=== PATIENT | female | born 1940 | race Caucasian/White ===

== ENCOUNTER → 2023-08-17 11:30 | Outpatient (REF) | payer MEDICARE, OTHER, SELFPAY ==
[2023-08-17 13:53] LABS: Blood Urea Nitrogen 17 mg/dl (7-17); Calcium 9.9 mg/dl (8.4-10.2); Carbon Dioxide 24 mmol/L (22-30); Chloride 105 mmol/L (98-107); Glucose 82 mg/dl (70-99); Potassium 4.8 mmol/L (3.5-5.1); Sodium 141 mmol/L (135-145); eGFR > 60.00
== END ==
LOC: REG 11:30
PROVIDERS: ATTENDING PHYSICIAN Internal Medicine Geriatric Medicine
DX: E87.6 Hypokalemia (principal)
CPT/HCPCS: 36415; 80048

== ENCOUNTER → 2023-10-24 12:39 | Outpatient (REF) | payer MEDICARE, OTHER, SELFPAY ==
[2023-10-24 13:16] LABS: % Basophils 1.9 % (0-2); % Eosinophils 3.5 % (0-6); % Immature Granulocytes 2.5 % (0-0.5); % Lymphocytes 8.6 % (20.5-51.1); % Monocytes 3.2 % (1.7-9.3); % Neutrophils 80.3 % (42.2-75.2); Absolute Basophils 0.3 10^3/uL (0-0.2); Absolute Eosinophils 0.5 10^3/uL (0-0.7); Absolute Immature Granulocytes 0.4 10^3/uL (0-0.05); Absolute Lymphocytes 1.3 10^3/uL (1.2-3.4); Absolute Monocytes 0.5 10^3/uL (0.1-0.6); Absolute Neutrophils 12.1 10^3/uL (1.4-6.5); Hematocrit 30.9 % (37.0-47.0); Hemoglobin 9.7 g/dL (12.0-16.0); Mean Corp Hgb Conc. 31.4 g/dL (33.0-37.0); Mean Corpuscular Hgb 27.1 pg (27.0-31.0); Mean Corpuscular Volume 86.3 fL (81.0-99.0); Mean Platelet Volume 10.8 fL (7.4-10.4); Nucleated Red Blood Cells % 0.7 %; Platelet Count 527 10^3/uL (130-400); Red Blood Cell Count 3.58 10^6/uL (4.20-5.40); Red Cell Dist. Width 28.7 % (11.5-14.5)
[2023-10-24 15:17] LABS: ALT (SGPT) 34 U/L (0-35); AST (SGOT) 36 U/L (14-36); Albumin 4.3 g/dl (3.5-5.0); Alkaline Phosphatase 43 U/L (38-126); Blood Urea Nitrogen 27 mg/dl (7-17); Calcium 9.6 mg/dl (8.4-10.2); Carbon Dioxide 24 mmol/L (22-30); Chloride 108 mmol/L (98-107); Glucose 87 mg/dl (70-99); LDH 519 U/L (120-246); Potassium 3.8 mmol/L (3.5-5.1); Sodium 141 mmol/L (135-145); Total Protein 6.9 g/dl (6.3-8.2); eGFR > 60.00
== END ==
LOC: REG 12:39
PROVIDERS: ATTENDING PHYSICIAN Internal Medicine Hematology & Oncology; FAMILY PHYSICIAN Internal Medicine Geriatric Medicine
DX: D46.1 Refractory anemia with ring sideroblasts (principal); D47.1 Chronic myeloproliferative disease
CPT/HCPCS: 36415; 80053; 83615; 85025

== ENCOUNTER 2023-11-26 11:38 | Emergency (ER) | payer MEDICARE, OTHER, SELFPAY ==
[2023-11-26 11:51] VITALS: BP 154/75
--- NOTE | 2023-11-26 12:31 | ED.MUSCINJ ---
HPI-Injury
General
Chief Complaint: Musculo-Skeletal Complaint
Source: patient
Exam Limitations: none
Time Seen by Provider: 11/26/23 12:06
Nursing documentation reviewed up to this point in time: agreed with
History of Present Illness-Injury
Is this injury a work related problem?: No
Is pt an associate of [facility]/[place]?: No
Initial Injury comments:
Patient to ED with complaint of left foot pain. Symptoms started 2 days ago. Reports initially pain was located lateral left foot. Now pain is in heel radiating to mid foot. No history of trauma. Denies fever/chills, recent illness. No prior
history of same.
Past History
Past History
ED Past Medical History: CAD, GERD, HTN, [place] and Other (Peptic ulcer disease, upper GI bleed November 2014, chronic cough)
ED Past Surgical History: Orthopedic
Social History
Tobacco: Non-smoker
Alcohol: None
Drug: None
Personal:
Living: with family
Employment: Retired
Family History
Family History: Other (Noncontributory)
Review of Systems
Review of Systems
Allergies reviewed?: Yes
All Other Systems: ROS reviewed and negative except as documented in HPI and ROS
Constitutional: Reports no symptoms
Musculoskeletal: Reports joint pain (pain to left foot)
Skin: Reports no symptoms
Neurological: Reports no symptoms
Psychiatric: Reports no symptoms
Musculoskeletal Injury Exam
Musculoskeletal Injury Exam
Left Foot:
Pain with Movement?: Moderate
Tender to palpation?: Moderate
Soft tissue swelling?: None
External deformity and angulation?: None
Joint effusion?: None
Contusion?: None
Hematoma-local bleeding into tissue?: None
Crepitus with movement?: No
Joint instability?: No
Malalignment/deformity?: No
Range of motion: Limited
Distal skin color and temperature: normal-warm & good color
Capillary Refill: normal
Normal distal neurovascular exam?: Yes
Peripheral Pulses: posterior tibial (left): 3+ and dorsalis pedis (left): 3+
Phy Exam
General Physical Exam
General Presentation: well appearing and no apparent distress
General age: appears stated age
General Skin: warm and dry
General Habitus: normal
General Mental: alert
Musculoskeletal Exam
Musculoskeletal Exam: neuro vasc intact
Skin Exam
Skin Exam: normal color, warm/dry and no rash
Psychiatric Exam
Psychiatric Exam: normal mood/affect
Injury Course
Orders/Labs/Results
Orders:
Orders
11/26/23 11:54
Foot, Left 3 View [CR Foot - Left Min 3 Views] Urgent
Comment: lateral foot and heel pain with and w/o ambulation
Reason For Exam: pain
11/26/23 12:24
Ortho Boot Left- Treatment ONCE
Short or tall?: Short
Hydrocodone 5/APAP 325 [[place] 5/325] 1 tablet PO NOW STA
*Radiology
Radiology exam reviewed: radiology read reviewed
*Pulse Oximetry
Patient hypoxic: no
*Critical Care Note
Total Time (30-74mins, 75-104mins- exclusive of procedures): Not Applicable
ED Attending Note
-
Portions of this chart may have been created with voice recognition software.� Occasional wrong word or��sound alike� substitutions may have occurred due to the inherent limitations of voice recognition software.
Discharge Plan
Departure
Patient Disposition: Home (Routine Discharge)
Date of Disposition: 11/26/23
Time of Disposition: 12:25
Patient with high blood pressure during this ER visit?: No
Condition: Good
Covid-19: Not Applicable
Discharge Problem:
Acute foot pain
Instructions: Plantar fasciitis, Muscle and Bone Pain (DC), Using Cold for Pain
Prescriptions:
New
hydrocodone-acetaminophen 5-325 mg tablet
1 tab PO Q4H PRN (Reason: Pain) Qty: 10 0RF
No Action
albuterol sulfate 1 PUFF HFA aerosol inhaler
1 puff inhalation R Q6HPRN PRN (Reason: SHORTNESS OF BREATH)
cholecalciferol (vitamin D3) 2,000 UNITS tablet
2,000 units PO DAILY
pantoprazole 40 MG tablet,delayed release (DR/EC)
40 mg PO DAILY Qty: 30 0RF
aspirin 81 MG tablet,delayed release (DR/EC)
81 mg PO DAILY Qty: 0 0RF
Rx Instructions:
resume in 3 days
budesonide-formoterol [Symbicort] 1 PUFF HFA aerosol inhaler
2 puff inhalation R BID
furosemide 20 MG tablet
20 mg PO DAILY Qty: 50 0RF
citalopram 40 mg tablet
40 mg PO DAILY
valsartan-hydrochlorothiazide 80-12.5 mg tablet
1 tab PO DAILY
potassium chloride [Klor-Con] 20 mEq packet
20 meq PO DAILY
Activity Restrictions/Additional Instructions:
Follow up with your cigarette carton sealer this week
Interventions
Interventions:
*Risk Screen - Suicide Last Done: 11/26/23 12:52
*General Assessment Last Done: 11/26/23 12:52
*Neglect/Abuse Screening Last Done: 11/26/23 12:52
ED- Fall Risk Assessment Last Done: 11/26/23 13:01
*ED COVID-19 Vaccine History Last Done: 11/26/23 13:07
*Nursing Disposition Last Done: 11/26/23 13:07
ED-Musculoskeletal Assessment Last Done: 11/26/23 13:01
Discharge Date and Time
Discharge Date/Time: 11/26/23 13:08
Print Language: ALGERIAN
[2023-11-26] MEDS: NORCO 5/325 1 TABLET PO (12:53)
== END 2023-11-26 13:08 | disposition home or self-care (01) ==
LOC: EMR 11:38
PROVIDERS: EMERGENCY PHYSICIAN Emergency Medicine; FAMILY PHYSICIAN Internal Medicine Geriatric Medicine
DX: M79.672 Pain in left foot (principal); I10 Essential (primary) hypertension; I25.10 Atherosclerotic heart disease of native coronary artery without angina pectoris; K21.9 Gastro-esophageal reflux disease without esophagitis; R05.3 Chronic cough; I25.2 Old myocardial infarction; Z87.11 Personal history of peptic ulcer disease; Z79.82 Long term (current) use of aspirin; Z88.8 Allergy status to other drugs, medicaments and biological substances
CPT/HCPCS: 99283; 29515; 73630

== ENCOUNTER → 2024-04-22 16:33 | Outpatient (REF) | payer MEDICARE, OTHER, SELFPAY | LOC: RAD 16:33 | PROVIDERS: ATTENDING PHYSICIAN Internal Medicine Geriatric Medicine | DX: M25.562 Pain in left knee (principal) | CPT/HCPCS: 73564 ==

== ENCOUNTER → 2024-09-25 14:40 | Outpatient (REF) | payer MEDICARE, OTHER, SELFPAY | LOC: RCS 14:40 | PROVIDERS: ATTENDING PHYSICIAN Internal Medicine Cardiovascular Disease; FAMILY PHYSICIAN Internal Medicine Geriatric Medicine | DX: I50.32 Chronic diastolic (congestive) heart failure (principal) | CPT/HCPCS: 93306 ==

== ENCOUNTER → 2024-12-19 15:17 | Outpatient (REF) | payer MEDICARE, OTHER, SELFPAY | LOC: RAD 15:17 | PROVIDERS: ATTENDING PHYSICIAN Nurse Practitioner Family; FAMILY PHYSICIAN Internal Medicine Geriatric Medicine | DX: R05.1 Acute cough (principal) | CPT/HCPCS: 71046 ==

== ENCOUNTER → 2025-01-13 17:10 | Outpatient (REF) | payer MEDICARE, OTHER, SELFPAY | LOC: RAD 17:10 | PROVIDERS: ATTENDING PHYSICIAN Internal Medicine Geriatric Medicine; REFERRING PHYSICIAN Specialist | DX: M54.50 Low back pain, unspecified (principal) | CPT/HCPCS: 72072; 72100 ==

== ENCOUNTER 2025-01-20 06:44 | Inpatient (IN) | payer MEDICARE, OTHER, SELFPAY ==
[2025-01-16] VITALS (9 sets, daily range): BP systolic 122–177; BP diastolic 51–88
--- NOTE | 2025-01-16 13:27 | ED.GENMED ---
History of Present Illness
General
Chief Complaint: Musculo-Skeletal Complaint
Source: patient
Exam Limitations: none
Time Seen by Provider: 01/16/25 13:00
History of Present Illness
History of Present Illness:
See MDM
Past History
Past History
ED Past Medical History: CAD, GERD, HTN, [place] and Other (Peptic ulcer disease, upper GI bleed November 2014, chronic cough)
ED Past Surgical History: Orthopedic
Social History
Tobacco: Non-smoker
Alcohol: None
Drug: None
Personal:
Living: with family
Employment: Retired
Family History
Family History: Other (Noncontributory)
Phy Exam
Physical Exam
Physical Exam:
See MDM
Course
Orders/Labs/Results
Orders:
Orders
01/16/25 13:16
Morphine Sulfate 4 mg IV NOW STA
01/16/25 13:17
Case Management Consult ONCE
Case Management Consult: Discharge Planning
Dexamethasone Sod Phosphate [Decadron] 10 mg IV NOW STA
Pt Eval And Treat Urgent
Activity Level: Out of Bed-Early Mobility
01/16/25 13:55
Complete Blood Count/With Diff Urgent
Comprehensive Metabolic Panel Urgent
Manual Differential Urgent
01/16/25 15:11
Morphine Sulfate 4 mg IV NOW STA
01/16/25 15:13
Add On- LAB Routine
Tests Added?: iron, ferritin, tibc, folate, vit b12
Abnormal Lab Results
01/16/25
13:55
RBC 2.89 L 10^6/uL
(4.20-5.40)
Hgb 7.2 L g/dL
(12.0-16.0)
Hct 23.1 L %
(37.0-47.0)
MCV 79.9 L fL
(81.0-99.0)
MCH 24.9 L pg
(27.0-31.0)
MCHC 31.2 L g/dL
(33.0-37.0)
RDW 25.5 H %
(11.5-14.5)
Segmented Neutrophils 85 H %
(42-75)
Lymphocytes (Manual) 10 L %
(20-51)
Chloride 112 H mmol/L
(98-107)
Carbon Dioxide 18 L mmol/L
(22-30)
BUN 21 H mg/dl
(7-17)
01/16/25 13:55
01/16/25 13:55
Vital Signs
Initial and Last Documented VS:
Initial Vital Signs
Temp Pulse Resp BP Pulse Ox
98.7 F 83 22 157/66 100
01/16/25 11:49 01/16/25 11:49 01/16/25 11:49 01/16/25 11:49 01/16/25 11:49
Last Documented Vital Signs
Temp Pulse Resp BP Pulse Ox
98.7 F 83 22 146/51 100
01/16/25 11:49 01/16/25 11:49 01/16/25 11:49 01/16/25 14:03 01/16/25 13:29
MDM/Problems Addressed
Differential Diagnosis Includes:
Note:
CHIEF COMPLAINT(S)
- Severe back and knee pain, secondary to arthritis, resulting in decreased mobility and difficulty managing daily activities.
HISTORY OF PRESENT ILLNESS
The patient is an 84-year-old female with a history of arthritis, presenting with significant pain in her lower back and knee. The discomfort has been exacerbated recently, limiting her mobility and ability to perform daily tasks, which has
subsequently caused shoulder pain due to reliance on a walker for the past week. The patients pain began largely while she was in [place], around mid-December, and has been progressively worsening since. She has undergone X-rays this past week,
revealing arthritic changes, and has not experienced any recent falls.
The patient has received various treatments, including a back injection on the last Monday and a gel injection for her knee administered two months ago, neither of which have provided relief. She also takes Extra Strength Tylenol and metaxalone
without significant improvement. The patients current orthopedic management plan involves a follow-up for potential further steroid injections.
ADDITIONAL HISTORY OBTAINED FROM SOURCE OTHER THAN PATIENT
Per family members, the patient is experiencing an urgency problem, affecting her ability to reach the bathroom in time.
SOCIAL DETERMINANTS AFFECTING HEALTH
The patient experiences difficulty in mobility at home, which results in challenges with daily living activities. She also has issues with timely access to bathroom facilities due to mobility constraints.
MEDICATIONS
- Extra Strength Tylenol (acetaminophen)
- Metaxalone
PHYSICAL EXAM
General: Alert, no acute distress.
Skin: Warm, dry.
Head: Normocephalic, atraumatic
Neck: Appears supple, trachea midline.
Eyes, Ears, Nose, Mouth, and Throat: Oral mucosa moist.
Cardiovascular: No signs of cyanosis
Respiratory: Respirations are non-labored.
Abdomen: Non-distended and nontender
Back: Mild left para lumbar muscular tenderness
Musculoskeletal: No deformities. No knee edema noted
Neurological: No focal neurological deficit observed.
Psychiatric: Cooperative, appropriate mood and affect.
PLAN
1. Administer a small dose of morphine for acute pain relief.
2. Give an IV dose of dexamethasone (Decadron) to address inflammation.
3. Blood work to assess for any underlying issues potentially contributing to pain.
4. Case management and physical therapy consultation to evaluate mobility aids and support at home.
5. Explore short-term rehabilitation options for improvement of mobility and pain management.
6. Consider hospital admission for complex management of pain if outpatient measures are insufficient.
7. Monitor for efficacy and side effects of pain management interventions, adjusting as necessary.
DIFFERENTIAL DIAGNOSIS
The Differential Diagnosis includes, in no particular order and is not limited to:
1. Arthritic back pain
2. Osteoarthritis of the knee
3. Lumbar spinal stenosis
4. Herniated intervertebral disc
5. Possible discitis
6. Muscle strain or spasm
7. Vertebral compression fracture
8. Hip osteoarthritis referred to the knee
9. Degenerative joint disease of the shoulder
10. Myofascial pain syndrome
SUMMARY OF ENCOUNTER
The 84-year-old female patient with a known history of arthritis presented to the emergency department with severe back and knee pain leading to decreased mobility. Upon evaluation, the patients pain was found to be significant enough that she was
unable to fully participate in physical therapy. Pain control was provided via medication, which offered some relief. Considering the persistence of pain and the patients inability to engage with physical therapy, the decision was made to admit the
patient for further pain management and evaluation. A consultation with a hospitalist was arranged to consider further interventions, possibly involving orthopedics, and to deliberate the need for MRI.
DISPOSITION
Admit for pain control and further evaluation.
ASSESSMENT
The patients severe back and knee pain, unmanageable through outpatient measures, suggests exacerbation of underlying arthritis, potentially complicated by other degenerative changes. Need for possible advanced imaging and specialist involvement.
EMERGENCY TREATMENTS ADMINISTERED
Pain medication was administered leading to some improvement in symptoms.
MANAGEMENT OF THE PATIENTS CARE WAS DISCUSSED WITH
A discussion was carried out with a hospitalist for admission and further management decisions, including the potential involvement of orthopedics and obtaining an MRI if required.
PLAN
1. Admit the patient for pain control and detailed evaluation.
2. Continue administering appropriate analgesics to manage acute pain.
3. Coordinate with a hospitalist to consider the involvement of orthopedics and the necessity of an MRI.
4. Re-evaluate patients condition and suitability for rehabilitation after adequate pain management.
DIAGNOSIS
1. Osteoarthritis, multiple sites (ICD-10: M15.9)
2. Chronic pain syndrome (ICD-10: G89.4)
*Pulse Oximetry
SaO2: 100
Oxygen Mode of Delivery: Room air
Patient hypoxic: no
*Critical Care Note
Total Time (30-74mins, 75-104mins- exclusive of procedures): Not Applicable
ED Attending Note
-
Portions of this chart may have been created with voice recognition software.� Occasional wrong word or��sound alike� substitutions may have occurred due to the inherent limitations of voice recognition software.
Discharge Plan
Departure
Patient Disposition: Admit
Date of Disposition: 01/16/25
Time of Disposition: 15:15
Presentation/result/management discussed w/ accepting MD/DO: Hospitalist
Discharge Problem:
Back pain
Prescriptions:
No Action
albuterol sulfate 1 PUFF HFA aerosol inhaler
1 puff inhalation R Q6HPRN PRN (Reason: SHORTNESS OF BREATH)
cholecalciferol (vitamin D3) 2,000 UNITS tablet
2,000 units PO DAILY
pantoprazole 40 MG tablet,delayed release (DR/EC)
40 mg PO DAILY Qty: 30 0RF
aspirin 81 MG tablet,delayed release (DR/EC)
81 mg PO DAILY Qty: 0 0RF
Rx Instructions:
resume in 3 days
budesonide-formoterol [Symbicort] 1 PUFF HFA aerosol inhaler
2 puff inhalation R BID
furosemide 20 MG tablet
20 mg PO DAILY Qty: 50 0RF
citalopram 40 mg tablet
40 mg PO DAILY
valsartan-hydrochlorothiazide 80-12.5 mg tablet
1 tab PO DAILY
potassium chloride [Klor-Con] 20 mEq packet
20 meq PO DAILY
hydrocodone-acetaminophen 5-325 mg tablet
1 tab PO Q4H PRN (Reason: Pain) Qty: 10 0RF
Referrals:
Anton Barton MD [Family Provider, Internal Medicine]
Interventions
Interventions:
*Risk Screen - Suicide Last Done: 01/16/25 11:52
*General Assessment Last Done: 01/16/25 14:20
*Neglect/Abuse Screening Last Done: 01/16/25 11:52
*ED- Fall Risk Assessment Last Done: 01/16/25 14:20
*ED COVID-19 Vaccine History Last Done: 01/16/25 14:20
ED-Musculoskeletal Assessment Last Done: 01/16/25 14:20
Discharge Date and Time
Print Language: MAORI
[2025-01-16] MEDS: MORPHINE SULFATE 4 MG IV ×2 (13:57→15:42)
[2025-01-16] MEDS: DECADRON 10 MG IV (13:57)
--- NOTE | 2025-01-16 14:08 | CM ---
CM reviewed chart and met with pt and bedside in ED. They live in a 1 story home, 3 RADHA, 1 step down to family room.
Independent in ADLs, personal care and ambulation at baseline, has cane and RW, has been using walker this week.
Hx [facility], no hx SNF.
PCP:Anton Barton
Pharmacy: [facility]
Pt states PT came to see her but she was not able to participate due to pain. Morphine is ordered.
CM will continue to follow for all discharge planning needs.
[2025-01-16 14:23] LABS: Hematocrit 23.1 % (37.0-47.0); Hemoglobin 7.2 g/dL (12.0-16.0); Mean Corp Hgb Conc. 31.2 g/dL (33.0-37.0); Mean Corpuscular Volume 79.9 fL (81.0-99.0); Platelet Count 261 10^3/uL (130-400); Red Cell Dist. Width 25.5 % (11.5-14.5)
[2025-01-16 14:28] LABS: ALT (SGPT) 11 U/L (0-35); AST (SGOT) 21 U/L (14-36); Albumin 3.7 g/dl (3.5-5.0); Alkaline Phosphatase 51 U/L (38-126); Blood Urea Nitrogen 21 mg/dl (7-17); Calcium 9.3 mg/dl (8.4-10.2); Carbon Dioxide 18 mmol/L (22-30); Chloride 112 mmol/L (98-107); Glucose 97 mg/dl (70-99); Potassium 3.5 mmol/L (3.5-5.1); Sodium 139 mmol/L (135-145); Total Protein 6.3 g/dl (6.3-8.2); eGFR > 60.00
[2025-01-16 15:02] LABS: Absolute Neutrophils -Man Diff 5.9 10^3/uL (1.4-6.5)
[2025-01-16 15:03] LABS: Anisocytosis 2+; Hypochromasia 2+; Microcytosis 2+; Normal RBC Morphology No; Platelets Checked Yes
[2025-01-16 15:04] LABS: Acanthocytes 1+; Ovalocytes 2+; Spherocytes 1+; Tear Drop Red Blood Cells 1+
[2025-01-16 15:05] LABS: Total Cells Counted 100
--- NOTE | 2025-01-16 15:15 | HPS.HSE ---
Family Physician
-
Family Physician: Anton Barton
Chief Complaint
-
Left Hip Pain
History of Present Illness
Patient is an 84 y/o female past medical history of MDS, CAD, CHF, HTN, and Osteoarthritis who presents with difficulty ambulating due to worsening arthritis pain. She reports over the past year she has been experiencing worsening back pain, left
knee pain, and now left hip pain. Patient reports she previously received a cortisone injection which helped but more recently she received a gel injection which did not offer any relief any notes it actually worsened her pain. She previously was
using a cane, but now has to use a walker. She reports since using the walker she has developed right shoulder pain. Patient is also now complaining about left hip pain for which she did receive a hip injection. She denies any recent falls. She
has tried Tylenol 1000mg, Tramadol (unknown dosage) and [place] Patch without improvement in her symptoms.
Medical History
Past Medical History
Past Medical History: Reports Other
Additional Past Medical History:
Myelodysplastic Syndrome
Coronary Artery Disease
Chronic HFpEF
Essential Hypertension
Dyslipidemia
Asthma
Obstructive Sleep Apnea
Depression
Nephrolithiasis
GI Bleed / PUD
Degenerative Disc Disease / Spinal Stenosis
Past Surgical History: Reports Other
Additional Past Surgical History:
Ureteral Stent with Lithotripsy
Left Hand/Wrist Surgery
Bilateral Rotator Cuff
Appendectomy
Social History
Tobacco: Non-smoker
Alcohol: Occasional
Family History
Family History: Not pertinent
Allergies / Home Medications
Allergies reflects when Allergies were last updated in [employer].
Home Medications with original date entered in [employer]
Allergy/Medication List:
Allergies
Allergy/AdvReac Type Severity Reaction Status Date / Time
bandaids Allergy Itching Uncoded 01/16/25 11:51
Home Medications
albuterol sulfate 90 mcg/actuation aerosol inhaler 1 puff inhalation R Q6HPRN PRN SHORTNESS OF BREATH 04/17/15
cholecalciferol (vitamin D3) 50 mcg (2,000 unit) tablet 2,000 units PO DAILY Supplement 04/17/15
aspirin 81 mg tablet,delayed release 81 mg PO DAILY ##0 04/22/15
pantoprazole 40 mg tablet,delayed release 40 mg PO DAILY ##30 04/22/15
valsartan 80 mg-hydrochlorothiazide 12.5 mg tablet 1 tab PO DAILY 07/12/22
acetaminophen 325 mg tablet (Tylenol) 650 mg PO Q6HPRN PRN mild pain 01/16/25
cholestyramine (with sugar) 4 gram powder for susp in a packet 1 ea PO DAILY@1300 01/16/25
citalopram 20 mg tablet (Celexa) 20 mg PO DAILY 01/16/25
fluticasone furoate 100 mcg-vilanterol 25 mcg/dose inhalation powder (Breo Ellipta) 2 inh inhalation R DAILY 01/16/25
vitamin B complex 1 tab PO DAILY 01/16/25
Review of Systems
-
A 12 point ROS was completed and negative except as noted: Yes
Constitutional: Denies Fever or Chills
Respiratory: Denies Cough or Trouble Breathing
Cardiac: Denies Chest Pain or Palpitations
Musculoskeletal: Reports See HPI
Physical Exam
Vital Signs
Vital Signs
Temp Pulse Resp BP Pulse Ox
98.7 F 83 22 146/51 100
01/16/25 11:49 01/16/25 11:49 01/16/25 11:49 01/16/25 14:03 01/16/25 13:29
Physical Exam
General: Comfortable and Conversant
HEENT: Anicteric and Moist mucous membranes
Respiratory: Clear and Non Labored Respirations
Cardiac: S1/S2 and Regular Rhythm
GI: Soft and Non Tender
Rectal: Deferred by Provider
Musculoskeletal: No Clubbing, No Cyanosis and Other (Mild tenderness to palpation Left SI Joint)
Skin: Warm and Dry
Neuro: Awake, Alert, Oriented and Nonfocal/grossly intact
Psych: Calm
Laboratory Results
-
01/16/25 13:55
01/16/25 13:55
Laboratory Results
Total Bilirubin 1.1 mg/dl (0.2-1.3) 01/16/25 13:55
AST 21 U/L (14-36) 01/16/25 13:55
ALT 11 U/L (0-35) 01/16/25 13:55
Alkaline Phosphatase 51 U/L (38-126) 01/16/25 13:55
Data Reviewed
-
Diagnostic Radiology: Report Reviewed by me
Lab Data: Labs Reviewed by me
Impression/Plan
-
Ambulatory Dysfunction secondary to worsening osteoarthritis pain
-Check Left/Pelvis X-Ray
-Add Lidocaine patch to Left SI joint
-Continue Tylenol 1000mg TID
-Add Oxycodone for moderate pain, and Dilaudid for severe pain
-Avoid NSAIDs due to history of GI Bleed
-Consult PT/OT
Myelodysplastic Syndrome
-Hgb seems slightly lower than baseline - Check iron studies, vitamin b12 and folic acid
-Heme-test stools
-Recheck Hgb in AM
Coronary Artery Disease
-Continue aspirin
Essential Hypertension
-Continue valsartan / HCTZ
Asthma
-Continue Breo
Depression
-Continue Celexa
Hx GI Bleed / PUD
-Continue Protonix
DVT proph: SCDs
Code Status: Full Code
[2025-01-16 15:33] LABS: Iron 41 ug/dl (37-170)
[2025-01-16 15:42] LABS: Total Iron Binding Capacity 228 ug/dl (265-497)
--- NOTE | 2025-01-16 16:11 | W.PN.UPDATE ---
Update Note
Progress Note Update
This note serves as an addendum to the H&P by piping design specialist GIOVANA�
Ginette DIETERICK
HPI�
83F from home , HX painful OA/DJD of Lt Knee, Lt SI joint pain and LBP . HX s/p Lt Hip IAS or synvisc , asscociated suacute gait dysfunction requiriung [place] at home, seen at ER for decompensatd ADLs. At ER, too uncomfortable to move so she
wouldn't even be able to participate in PT. So unable to expedite placement till improved pain control
HX CAD, GERD, HTN, [place] and Other (Peptic ulcer disease, upper GI bleed November 2014, chronic cough
Relevant VS:
PE
Gen: Not toxic
HEENT: anicteric
Neck: supple
Lungs: CTA
Cor: RRR S1 S2
Abdomen:�Benign
FIELD TRAINING MANAGER: AAO3 , NFND
MS: no edema , Limited FROM in [place]ar large joints
Psych: Nl mood and affect
Relevant Data
01/16/25
13:55
RBC 2.89 L
Hgb 7.2 L
Hct 23.1 L
MCV 79.9 L
MCH 24.9 L
MCHC 31.2 L
RDW 25.5 H
Segmented Neutrophils 85 H
Lymphocytes (Manual) 10 L
Chloride 112 H
Carbon Dioxide 18 L
BUN 21 H
TIBC 228 L
% Saturation 17 L
Ferritin 687.0 H
01/13/25 Thx and Lx spine
1. No acute osseous abnormalities appreciated.
2. Mild degenerative change of the thoracic spine.
3. Mild multilevel degenerative changes of the lumbar spine without evidence for acute fracture.
ASSESSMENT & PLAN
Pending Rx reconciliation
Inadequate pain control of progressive painful OA/DJD of Lt Knee, Lt SI joint and chr LBP
Associated subacute gait dysfunction requiring Walker
Compromised ADLs.
- Unable to evaluate by PT for placement due to inadequate pain control
- Pain control with Local Lidoderm plus escalating systemic pain control ladder PRN
- Hold narcotics if any AMS
- BW regime as needed
- check ESR
Chr anemia - baseline Hgb is around 7s
HX MDS
- hemodynamically stable
- FU CBC
HX chr diarrhea
Benign HTN
- c/w OP Meds - Pending Rx reconciliation
HX depression
DVT Px: SCD
Full code
OBS MS
[2025-01-16 16:12] LABS: Ferritin 687.0 ng/ml (11.1-264.0)
[2025-01-16 16:43] LABS: Folate > 20.0 ng/ml (2.76-20); Vitamin B12 > 1000 pg/ml (239-931)
[2025-01-16] MEDS: LIDOCAINE 4% PATCH 1 PATCH TOPICAL (16:54)
[2025-01-16] MEDS: REMOVE LIDOCAINE PATCH 1 PATCH REMOVE (20:59)
[2025-01-16] MEDS: TYLENOL 1000 MG PO (21:29)
[2025-01-17 07:58] LABS: Hematocrit 25.4 % (37.0-47.0); Hemoglobin 7.8 g/dL (12.0-16.0); Mean Corp Hgb Conc. 30.7 g/dL (33.0-37.0); Mean Corpuscular Volume 81.9 fL (81.0-99.0); Red Cell Dist. Width 25.7 % (11.5-14.5)
[2025-01-17] MEDS: SYMBICORT 80/4.5 MCG INHALER 2 PUFF INH ×2 (08:06→20:14)
[2025-01-17 08:30] LABS: Platelet Count 308 10^3/uL (130-400)
[2025-01-17] MEDS: LIDOCAINE 4% PATCH 1 PATCH TOPICAL (08:30)
[2025-01-17] MEDS: PROTONIX 40 MG PO (08:31)
[2025-01-17] MEDS: ORETIC 12.5 MG PO (08:31)
[2025-01-17] MEDS: ASPIR LOW (ENTERIC COATED) 81 MG PO (08:31)
[2025-01-17] MEDS: DIOVAN 80 MG PO (08:31)
[2025-01-17] MEDS: CELEXA 20 MG PO (08:31)
[2025-01-17] MEDS: TYLENOL 1000 MG PO ×3 (08:32→21:54)
[2025-01-17 08:36] VITALS: BP 155/61
--- NOTE | 2025-01-17 10:39 | W.PN.HOSP.TC ---
Today's Communication/Plan
-
Await hip x-ray
Continue with PT OT
Pain control
Assessment / Plan
Assessment / Plan
General: Comfortable and Conversant
HEENT: Anicteric and Moist mucous membranes
Respiratory: Clear and Non Labored Respirations
Cardiac: S1/S2 and Regular Rhythm
GI: Soft and Non Tender
Rectal: Deferred by Provider
Musculoskeletal: No Clubbing, No Cyanosis and Other (Mild tenderness to palpation Left SI Joint)
Skin: Warm and Dry
Neuro: Awake, Alert, Oriented and Nonfocal/grossly intact
Psych: Calm
Ambulatory Dysfunction secondary to worsening osteoarthritis pain
-Check Left/Pelvis X-Ray
-Add Lidocaine patch to Left SI joint
-Continue Tylenol 1000mg TID
-Add Oxycodone for moderate pain, and Dilaudid for severe pain
-Avoid NSAIDs due to history of GI Bleed
-Consult PT/OT
Myelodysplastic Syndrome
-trend hgb. transfuse <7.
-Heme-test stools
Coronary Artery Disease
-Continue aspirin
Essential Hypertension
-Continue valsartan / HCTZ
Asthma
-Continue Breo
Depression
-Continue Celexa
Hx GI Bleed / PUD
-Continue Protonix
DVT proph: SCDs
Code Status: Full Code
Anticipated Discharge: > 48 hours
Subjective/Interval History
-
Date of Service: January 17, 2025
States of left hip pain with movement
Objective Data
-
Labs:
Laboratory Results
01/17/25
07:09
WBC 6.8
Hgb 7.8 L
Hct 25.4 L
Plt Count 308
Vital Signs:
Vital Signs
Temp Pulse Resp BP Pulse Ox
97.6 F 87 18 155/61 96
01/17/25 08:36 01/17/25 08:36 01/17/25 08:36 01/17/25 08:36 01/17/25 08:36
I&O
01/16/25 01/17/25 01/18/25
06:59 06:59 06:59
Intake Total 240 / 240
Balance 240 / 240
[2025-01-17] MEDS: ROXICODONE 5 MG PO (11:26)
[2025-01-17] MEDS: IMODIUM 2 MG PO (11:30)
[2025-01-17 12:30] VITALS: BP 139/61; PULSE 79; O2SAT 99
[2025-01-17 12:31] VITALS: BP 139/61; PULSE 79; O2SAT 99
[2025-01-17] MEDS: QUESTRAN 4 GRAM PO (12:50)
[2025-01-17 15:44] VITALS: BP 153/65
--- NOTE | 2025-01-17 17:00 | CM ---
Patient seen at bedside
[facility] form explained-declined to sign wants to review with -given copy.
PT rec SNF
discussed SNF & private pay/OBS status
tt [place] regarding MSSP waiver-does not qualify for waiver
PLAN: tbd, follow hospital progress, CM to follow up
[2025-01-17] MEDS: REMOVE LIDOCAINE PATCH 1 PATCH REMOVE (19:58)
[2025-01-17 23:23] VITALS: BP 138/63
[2025-01-18] MEDS: MELATONIN 3 MG PO ×2 (00:23→21:56)
[2025-01-18] MEDS: DILAUDID 0.25 MG IV (06:37)
[2025-01-18] MEDS: SYMBICORT 80/4.5 MCG INHALER 2 PUFF INH ×2 (07:15→17:26)
[2025-01-18 07:33] VITALS: BP 145/60
[2025-01-18] MEDS: ASPIR LOW (ENTERIC COATED) 81 MG PO (08:07)
[2025-01-18] MEDS: TYLENOL 1000 MG PO ×3 (08:07→21:56)
[2025-01-18] MEDS: PROTONIX 40 MG PO (08:07)
[2025-01-18] MEDS: LIDOCAINE 4% PATCH 1 PATCH TOPICAL (08:08)
[2025-01-18] MEDS: ORETIC 12.5 MG PO (08:10)
[2025-01-18] MEDS: CELEXA 20 MG PO (08:10)
[2025-01-18] MEDS: DIOVAN 80 MG PO (08:10)
--- NOTE | 2025-01-18 10:39 | W.PN.HOSP.TC ---
Today's Communication/Plan
-
pain control
start steroids
oob/pt
Assessment / Plan
Assessment / Plan
General: Comfortable and Conversant
HEENT: Anicteric and Moist mucous membranes
Respiratory: Clear and Non Labored Respirations
Cardiac: S1/S2 and Regular Rhythm
GI: Soft and Non Tender
Rectal: Deferred by Provider
Musculoskeletal: No edema
Skin: Warm and Dry
Neuro: Awake, Alert, Oriented and Nonfocal/grossly intact
Psych: Calm
Ambulatory Dysfunction secondary to worsening osteoarthritis pain
-Left/Pelvis S-Tlv-Rxeukd proliferative arthropathy of the sacroiliac joints. Findings have progressed compared with prior studies. The findings could be related to advanced osteoarthritis, ankylosing spondylitis, or inflammatory bowel disease
-Add Lidocaine patch to Left SI joint
-Continue Tylenol 1000mg TID
-Add Oxycodone for moderate pain, and Dilaudid for severe pain
-Avoid NSAIDs due to history of GI Bleed
-Consult PT/OT- recs SNF
-Trial of systemic steroids.
Myelodysplastic Syndrome
-trend hgb. transfuse <7.
-check labs
Coronary Artery Disease
-Continue aspirin
Essential Hypertension
-Continue valsartan / HCTZ
Asthma
-Continue Breo
Depression
-Continue Celexa
Hx GI Bleed / PUD
-Continue Protonix
DVT proph: lovenox
Code Status: Full Code
PT recs SNF. CM aware.
Anticipated Discharge: 24 - 48 hours
Subjective/Interval History
-
Date of Service: January 18, 2025
states of unable to bear weight on LLE
Objective Data
-
Vital Signs:
Vital Signs
Temp Pulse Resp BP Pulse Ox
97.3 F 73 14 145/60 97
01/18/25 07:33 01/18/25 07:33 01/18/25 07:33 01/18/25 07:33 01/18/25 07:33
I&O
01/17/25 01/18/25 01/19/25
06:59 06:59 06:59
Intake Total 240 / 240 240 / 240
Balance 240 / 240 240 / 240
[2025-01-18] MEDS: DELTASONE 40 MG PO (11:10)
[2025-01-18] MEDS: IMODIUM 2 MG PO (11:14)
[2025-01-18] MEDS: QUESTRAN 4 GRAM PO (12:38)
--- NOTE | 2025-01-18 13:20 | CM ---
CM met with pt at bedside, however she wants her to be there for meeting regarding SNF. Per RN, pt's fell at home today. CM to f/u again tomorrow regarding SNF transfer.
[2025-01-18 15:16] VITALS: BP 149/68
--- NOTE | 2025-01-18 16:21 | CM ---
MIKE met with Bernardo and her to discuss Medicare coverage for SNF, as well as OBS status, and interested in an update regarding her medical status.
TT to Dr. Munoz to make him aware.
MIKE will continue to follow.
[2025-01-18] MEDS: LOVENOX 40 MG SC (18:18)
[2025-01-18] MEDS: REMOVE LIDOCAINE PATCH 1 PATCH REMOVE (20:00)
[2025-01-18 23:00] VITALS: BP 141/61
[2025-01-19] MEDS: DILAUDID 0.25 MG IV (00:46)
[2025-01-19] MEDS: SYMBICORT 80/4.5 MCG INHALER 2 PUFF INH ×2 (07:10→17:52)
[2025-01-19 07:50] LABS: Blood Urea Nitrogen 23 mg/dl (7-17); Calcium 9.1 mg/dl (8.4-10.2); Carbon Dioxide 19 mmol/L (22-30); Chloride 110 mmol/L (98-107); Estimated Creatinine Clearance 54 ml/min; Glucose 99 mg/dl (70-99); Potassium 3.7 mmol/L (3.5-5.1); Sodium 138 mmol/L (135-145); eGFR > 60.00
[2025-01-19 07:55] VITALS: BP 144/86
[2025-01-19] MEDS: TYLENOL 1000 MG PO ×3 (08:27→22:08)
[2025-01-19] MEDS: ASPIR LOW (ENTERIC COATED) 81 MG PO (08:28)
[2025-01-19] MEDS: DELTASONE 40 MG PO (08:28)
[2025-01-19] MEDS: CELEXA 20 MG PO (08:28)
[2025-01-19] MEDS: ORETIC 12.5 MG PO (08:28)
[2025-01-19] MEDS: DIOVAN 80 MG PO (08:28)
[2025-01-19] MEDS: PROTONIX 40 MG PO (08:28)
[2025-01-19] MEDS: LIDOCAINE 4% PATCH 1 PATCH TOPICAL (08:29)
[2025-01-19] MEDS: ROXICODONE 5 MG PO ×3 (08:43→22:12)
--- NOTE | 2025-01-19 10:03 | W.PN.HOSP.TC ---
Today's Communication/Plan
-
Check CT pelvis and CT left lower extremity
Trend hemoglobin
Out of bed/PT
Pain control
Assessment / Plan
Assessment / Plan
General: Comfortable and Conversant
HEENT: Anicteric and Moist mucous membranes
Respiratory: Clear and Non Labored Respirations
Cardiac: S1/S2 and Regular Rhythm
GI: Soft and Non Tender
Rectal: Deferred by Provider
Musculoskeletal: No edema ,(tenderness to palpation Left SI Joint)
Skin: Warm and Dry
Neuro: Awake, Alert, Oriented and Nonfocal/grossly intact
Psych: Calm
Ambulatory Dysfunction secondary to worsening osteoarthritis pain
-Left/Pelvis F-Czx-Rcfbww proliferative arthropathy of the sacroiliac joints. Findings have progressed compared with prior studies. The findings could be related to advanced osteoarthritis, ankylosing spondylitis, or inflammatory bowel disease
-Add Lidocaine patch to Left SI joint
-Continue Tylenol 1000mg TID
-Add Oxycodone for moderate pain, and Dilaudid for severe pain
-Avoid NSAIDs due to history of GI Bleed
-Consult PT/OT- recs SNF
-Trial of systemic steroids.
-Remains with persistent pain. Check CT pelvis and CT of the left lower extremity to rule out occult fractures
Myelodysplastic Syndrome
-trend hgb. transfuse <7.
- Hemoglobin up trended to 8.5. Patient gets infusion at [facility] and she is due for further infusion next week for anemia.
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
Coronary Artery Disease
-Continue aspirin
Essential Hypertension
-Continue valsartan / HCTZ
Asthma
-Continue Breo
Depression
-Continue Celexa
Hx GI Bleed / PUD
-Continue Protonix
DVT proph: lovenox
Code Status: Full Code
PT recs SNF.
Updated patient's spouse over the phone in details.
Anticipated Discharge: > 48 hours
Subjective/Interval History
-
Date of Service: January 19, 2025
Remains with left side hip pain
Was OOB yesterday in chair
but pain persist
Objective Data
-
Labs:
Laboratory Results
01/19/25 01/19/25
06:18 09:37
WBC Cancelled Pending
Hgb Cancelled Pending
Hct Cancelled Pending
Plt Count Cancelled Pending
Sodium 138
Potassium 3.7
Chloride 110 H
Carbon Dioxide 19 L
BUN 23 H
Creatinine 0.6
Glucose 99
Calcium 9.1
Vital Signs:
Vital Signs
Temp Pulse Resp BP Pulse Ox
98.0 F 87 16 144/86 97
01/19/25 07:55 01/19/25 07:55 01/19/25 07:55 01/19/25 07:55 01/19/25 07:55
I&O
01/18/25 01/19/25 01/20/25
06:59 06:59 06:59
Intake Total 240 / 240 1200 / 1200
Balance 240 / 240 1200 / 1200
Data Reviewed
-
Total Time Spent with Patient (in minutes): 55
[2025-01-19 11:36] LABS: Hematocrit 27.3 % (37.0-47.0); Hemoglobin 8.5 g/dL (12.0-16.0); Mean Corp Hgb Conc. 31.1 g/dL (33.0-37.0); Mean Corpuscular Volume 81.0 fL (81.0-99.0); Nucleated Red Blood Cells % 0.8 %; Platelet Count 387 10^3/uL (130-400); Red Cell Dist. Width 25.4 % (11.5-14.5)
[2025-01-19] MEDS: QUESTRAN 4 GRAM PO (12:11)
[2025-01-19 15:00] VITALS: BP 172/71
--- NOTE | 2025-01-19 15:05 | CM ---
Pt going for CT this afternoon - LLE and Pelvis. Bernardo was told by MD that the OBS status 'will be taken care of tomorrow'.
Please check if eligible for [employer] Waiver.
[2025-01-19] MEDS: LOVENOX 40 MG SC (17:41)
[2025-01-19] MEDS: REMOVE LIDOCAINE PATCH 1 PATCH REMOVE (22:08)
[2025-01-19 23:51] VITALS: BP 163/74
[2025-01-20 07:37] VITALS: BP 133/86
[2025-01-20 07:46] LABS: Hematocrit 28.0 % (37.0-47.0); Hemoglobin 8.6 g/dL (12.0-16.0); Mean Corp Hgb Conc. 30.7 g/dL (33.0-37.0); Mean Corpuscular Volume 80.5 fL (81.0-99.0); Platelet Count 322 10^3/uL (130-400); Red Cell Dist. Width 25.5 % (11.5-14.5)
[2025-01-20 07:48] LABS: Blood Urea Nitrogen 25 mg/dl (7-17); Calcium 9.0 mg/dl (8.4-10.2); Carbon Dioxide 25 mmol/L (22-30); Chloride 106 mmol/L (98-107); Estimated Creatinine Clearance 46 ml/min; Glucose 84 mg/dl (70-99); Potassium 4.1 mmol/L (3.5-5.1); Sodium 139 mmol/L (135-145); eGFR > 60.00
[2025-01-20] MEDS: SYMBICORT 80/4.5 MCG INHALER 2 PUFF INH ×2 (07:57→18:00)
[2025-01-20] MEDS: DIOVAN 80 MG PO (08:17)
[2025-01-20] MEDS: ASPIR LOW (ENTERIC COATED) 81 MG PO (08:17)
[2025-01-20] MEDS: TYLENOL 1000 MG PO ×3 (08:17→21:21)
[2025-01-20] MEDS: ORETIC 12.5 MG PO (08:18)
[2025-01-20] MEDS: LIDOCAINE 4% PATCH 1 PATCH TOPICAL (08:18)
[2025-01-20] MEDS: CELEXA 20 MG PO (08:18)
[2025-01-20] MEDS: PROTONIX 40 MG PO (08:21)
[2025-01-20 09:47] LABS: Nucleated Red Blood Cells % 0.9 %
--- NOTE | 2025-01-20 10:18 | W.PN.HOSP.TC ---
Addendum entered and electronically signed by Cyndi Greene MD 01/20/25 15:36:
Addendum
Patient is having significant pain, unable to do physical therapy or ambulate. She is unable to tolerate high doses of narcotic due to side effects and the way they are making her feel. Will consult orthopedic. Discussed with orthopedic doctor
on-call, reviewed imaging study, patient might benefit from local joint steroid injection. Will consult Ortho to evaluate.
End
Original Note:
Today's Communication/Plan
-
Pt reports pain still significant
c/w Tylenol ATC
c/w Oxy and PRN IV Dilaudid.
Assessment / Plan
Assessment / Plan
Physical exam:
General: Comfortable and Conversant
HEENT: Anicteric and Moist mucous membranes
Respiratory: Clear and Non Labored Respirations
Cardiac: S1/S2 and Regular Rhythm
GI: Soft and Non Tender
Rectal: No bleeding
Musculoskeletal: No edema ,(tenderness to palpation Left SI Joint)
Skin: Warm and Dry
Neuro: Awake, Alert, Oriented and Nonfocal/grossly intact
Psych: Calm
Ambulatory Dysfunction secondary to worsening osteoarthritis pain
-Left/Pelvis F-Bdl-Mxxask proliferative arthropathy of the sacroiliac joints. Findings have progressed compared with prior studies. The findings could be related to advanced osteoarthritis, ankylosing spondylitis, or inflammatory bowel disease
-Add Lidocaine patch to Left SI joint
-Continue Tylenol 1000mg TID
-Add Oxycodone for moderate pain, and Dilaudid for severe pain
-Avoid NSAIDs due to history of GI Bleed
-Consult PT/OT- recs SNF
-Trial of systemic steroids and taper.
-Remains with persistent pain, will do . Check CT pelvis and CT of the left lower extremity to rule out occult fractures
Myelodysplastic Syndrome
-trend hgb. transfuse <7.
- Hemoglobin up trended to 8.5. Patient gets infusion at [facility] and she is due for further infusion next week for anemia.
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
Coronary Artery Disease
-Continue aspirin
Essential Hypertension
-Continue valsartan / HCTZ
Asthma
-Continue Breo
Depression
-Continue Celexa
Hx GI Bleed / PUD
-Continue Protonix
DVT proph: lovenox
Code Status: Full Code
PT recs SNF.
Total time spent to see the patient, examine the patient, review data and lab result, discuss treatment plan with patient, nursing staff around 55 minutes
Anticipated Discharge: 24 - 48 hours
Subjective/Interval History
-
Date of Service: January 20, 2025
Pain is better controlled
No chest pain
No sob
Objective Data
-
Labs:
Laboratory Results
01/20/25
06:13
WBC 8.1
Hgb 8.6 L
Hct 28.0 L
Plt Count 322
Sodium 139
Potassium 4.1
Chloride 106
Carbon Dioxide 25
BUN 25 H
Creatinine 0.7
Glucose 84
Calcium 9.0
Vital Signs:
Vital Signs
Temp Pulse Resp BP Pulse Ox
97.8 F 77 18 133/86 96
01/20/25 07:37 01/20/25 07:59 01/20/25 07:59 01/20/25 07:37 01/20/25 07:59
I&O
01/19/25 01/20/25 01/21/25
06:59 06:59 06:59
Intake Total 1200 / 1200 600 / 600
Balance 1200 / 1200 600 / 600
[2025-01-20 12:35] VITALS: BP 147/65; O2SAT 98
--- NOTE | 2025-01-20 12:59 | CM ---
Met with patient and her
LOC change to inpatient - IMM explained & signed. In chart
PT rec SNF
discussed options with
prefers [facility]
Referrals entered in careport
PLAN: SNF, pending acceptance/bed availability
[2025-01-20] MEDS: QUESTRAN 4 GRAM PO (13:05)
[2025-01-20 15:30] VITALS: BP 160/65
[2025-01-20] MEDS: IMODIUM 2 MG PO (16:16)
[2025-01-20] MEDS: LOVENOX 40 MG SC (17:07)
[2025-01-20] MEDS: REMOVE LIDOCAINE PATCH 1 PATCH REMOVE (20:13)
[2025-01-20] MEDS: ROXICODONE 5 MG PO (21:24)
[2025-01-20 23:00] VITALS: BP 165/98
[2025-01-21] MEDS: SYMBICORT 80/4.5 MCG INHALER 2 PUFF INH ×2 (07:26→17:21)
[2025-01-21] MEDS: ASPIR LOW (ENTERIC COATED) 81 MG PO (07:31)
[2025-01-21] MEDS: CELEXA 20 MG PO (07:31)
[2025-01-21] MEDS: ORETIC 12.5 MG PO (07:31)
[2025-01-21] MEDS: DIOVAN 80 MG PO (07:31)
[2025-01-21] MEDS: PROTONIX 40 MG PO (07:32)
[2025-01-21] MEDS: LIDOCAINE 4% PATCH 1 PATCH TOPICAL (07:32)
[2025-01-21] MEDS: TYLENOL 1000 MG PO ×3 (07:32→21:47)
[2025-01-21] MEDS: ROXICODONE 5 MG PO ×2 (07:32→21:46)
[2025-01-21 07:33] VITALS: BP 157/71
[2025-01-21] MEDS: DEPO-MEDROL 40 MG INTRAARTIC (08:00)
[2025-01-21] MEDS: XYLOCAINE 1% 20 ML INJ (08:05)
--- NOTE | 2025-01-21 09:13 | CON.ORTHO ---
Consultation
-
Date/Time Consultation Requested: Jan 27
Date/Time Consultation Performed: Jan 27
Requesting Provider: Jc
Performing Provider: Jose Velazquez
Reason for Consultation: Left hip/low back pain
Consultation - Orthopedics
History
History of Present Illness:
Patient is an 84 y/o female past medical history of MDS, CAD, CHF, HTN, and osteoarthritis who presents with difficulty ambulating due to worsening left hip/L pain. She reports over the past year she has been experiencing worsening back pain, left
knee pain, and now left hip pain. Patient reports she previously received a cortisone injection which helped but more recently she received a gel injection which did not offer any relief any notes it actually worsened her pain. She previously was
using a cane, but now has to use a walker. She reports since using the walker she has developed right shoulder pain. Patient is also now complaining about left hip pain for which she did receive a hip injection. She denies any recent falls. Due
to her ongoing left hip and low back pain we have been requested in consultation. She is known to our practice, but has not been seen since March 2023. At that time she saw Dr. Toscano for her hips. X-rays revealed mild arthritis but severe
L4-L5 DDD. pain was felt to be radicular in nature. MRI scan was requested. Communication via phone noted in early 2023 which recommended a follow-up with our PM&R team to review her MRI. No follow-up ever occurred. She does report being seen at
an outside orthopedic practice but could not give me the name. Initially she actually denied ever being seen by our practice. denies any numbness or tingling down the leg. Denies bowel or bladder incontinence. Denies saddle anesthesia.
Past Medical History:
Myelodysplastic Syndrome
Coronary Artery Disease
Chronic HFpEF
Essential Hypertension
Dyslipidemia
Asthma
Obstructive Sleep Apnea
Depression
Nephrolithiasis
GI Bleed / PUD
Degenerative Disc Disease / Spinal Stenosis
Past Surgical History:
Ureteral Stent with Lithotripsy
Left Hand/Wrist Surgery
Bilateral Rotator Cuff
Appendectomy
Social History:
Tobacco: Non-smoker
Alcohol: Occasional
Family History:
Family History: Not pertinent
ROS:
12 point negative except for those mentioned in the HPI
Allergies / Home Medications
Allergy/AdvReac Type Severity Reaction Status Date / Time
bandaids Allergy Itching Uncoded 01/16/25 11:51
�Medication �Instructions �Recorded
albuterol sulfate 90 mcg/actuation 1 puff inhalation R Q6HPRN PRN 04/17/15
aerosol inhaler shortness of breath
cholecalciferol (vitamin D3) 50 2,000 units PO DAILY Supplement 04/17/15
mcg (2,000 unit) tablet
aspirin 81 mg tablet,delayed 81 mg PO DAILY ##0 04/22/15
release
pantoprazole 40 mg tablet,delayed 40 mg PO DAILY ##30 04/22/15
release
valsartan 80 1 tab PO DAILY Blood Pressure 07/12/22
mg-hydrochlorothiazide 12.5 mg
tablet
acetaminophen 325 mg tablet 650 mg PO Q6HPRN PRN mild pain 01/16/25
(Tylenol)
cholestyramine (with sugar) 4 gram 1 ea PO DAILY@1300 01/16/25
powder for susp in a packet
citalopram 20 mg tablet (Celexa) 20 mg PO DAILY depression/anxiety 01/16/25
fluticasone furoate 100 2 inh inhalation R DAILY 01/16/25
mcg-vilanterol 25 mcg/dose Lung/Breathing Issues
inhalation powder (Breo Ellipta)
vitamin B complex 1 tab PO DAILY Supplement 01/16/25
Vital Signs / Lab Results
Temp Pulse Resp BP Pulse Ox
97.8 F 82 16 157/71 100
01/21/25 07:33 01/21/25 07:33 01/21/25 07:33 01/21/25 07:33 01/21/25 07:33
01/20/25 06:13
01/20/25 06:13
Assessment / Plan
PE: Afeb. At bedrest currently. evaluation of her low back and left hip reveals pain in the lower lumbar region and left-sided SI joint. Also some pain over the left lateral hip, focally over the greater trochanter. No pain over the hip capsule.
Knee and hip range well with mild low back pain. - logroll LLE. calf soft nontender. DNVI LLE
Diagnostics:
Xray and Pelvis/LE CT- No evidence of fracture. Some mild inflammation around the gluteal insertion. mild osteoarthritis of both hips
Impression:
1. Gluteal tendinitis left hip
2. SI joint pain/OA
3. Lumbar DDD
4. Left hip OA
Plan: Discussed with the patient at length. Also discussed with attending hospitalist, Dr. Greene. I believe her symptoms are multifactorial. I believe she has a component of lumbar DDD and SI joint arthritis. based on subjective complaints and
clinical exam she also has evidence of gluteal tendinitis. I explained to her that an injection to the Lsp and/or SI joint requires advanced imaging, and could be considered, if indicated, as an outpatient. She does have some symptoms related to
gluteal tendinitis which I offered her an injection for. She was agreeable to this. after obtaining verbal consent the focal area of tenderness over her greater trochanter was sterilely injected with 4 cc 0.25% Lidocaine and 1 cc 40 mg
Depo-Medrol without complication. I am hoping she experiences some relief from this injection. If symptoms persist, again, she can be followed up as an outpatient to discuss other options. She may be WBAT, device if necessary. pain management.
PT/OT could be considered, unless discharge is imminent. Discharge information provided in the plan. Orthopedics to sign off for now.
--- NOTE | 2025-01-21 10:06 | CM ---
chart reviewed
referrals in careport
PLAN: SNF, pending bed availability when stable
--- NOTE | 2025-01-21 10:10 | W.PN.HOSP.TC ---
Today's Communication/Plan
-
d//w ortho
s/p steroid injection
ok to dc in am
Assessment / Plan
Assessment / Plan
Physical exam:
General: Comfortable and Conversant
HEENT: Anicteric and Moist mucous membranes
Respiratory: Clear and Non Labored Respirations
Cardiac: S1/S2 and Regular Rhythm
GI: Soft and Non Tender
Rectal: No bleeding
Musculoskeletal: No edema ,(tenderness to palpation Left SI Joint)
Skin: Warm and Dry
Neuro: Awake, Alert, Oriented and Nonfocal/grossly intact
Psych: Calm
# Gluteal tendinitis left hip
d/w ortho, reviewed images
s/p 40 mg Depo- Medrol injection on 01/21
Ambulatory Dysfunction secondary to worsening osteoarthritis pain
-Left/Pelvis B-Nft-Njciow proliferative arthropathy of the sacroiliac joints. Findings have progressed compared with prior studies. The findings could be related to advanced osteoarthritis, ankylosing spondylitis, or inflammatory bowel disease
-Added Lidocaine patch to Left SI joint
-Continue Tylenol 1000mg TID
-Added Oxycodone for moderate pain, and Dilaudid for severe pain
-Avoid NSAIDs due to history of GI Bleed
-Consulted PT/OT- recs SNF
CT study, no fractures.
Myelodysplastic Syndrome
-trend hgb. transfuse <7.
- Hemoglobin up trended to 8.5. Patient gets infusion at [facility] and she is due for further infusion next week for anemia.
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
Coronary Artery Disease
-Continue aspirin
Essential Hypertension
-Continue valsartan / HCTZ
Asthma
-Continue Breo
Depression
-Continue Celexa
Hx GI Bleed / PUD
-Continue Protonix
DVT proph: Lovenox
Code Status: Full Code
PT recs SNF.
Total time spent to see the patient, examine the patient, review data and lab result, discuss treatment plan with patient, nursing staff around 55 minutes
Anticipated Discharge: Within 24 hours
Subjective/Interval History
-
Date of Service: January 21, 2025
No worsening pain
Objective Data
-
Vital Signs:
Vital Signs
Temp Pulse Resp BP Pulse Ox
97.8 F 82 16 157/71 100
01/21/25 07:33 01/21/25 07:33 01/21/25 07:33 01/21/25 07:33 01/21/25 07:33
I&O
01/20/25 01/21/25 01/22/25
06:59 06:59 06:59
Intake Total 600 / 600 1320 / 1320
Balance 600 / 600 1320 / 1320
[2025-01-21] MEDS: QUESTRAN 4 GRAM PO (12:12)
[2025-01-21 15:24] VITALS: BP 157/65
[2025-01-21] MEDS: LOVENOX 40 MG SC (17:00)
[2025-01-21] MEDS: REMOVE LIDOCAINE PATCH 1 PATCH REMOVE (20:22)
[2025-01-21 23:00] VITALS: BP 153/64
--- NOTE | 2025-01-22 04:59 | DOWNTIME ---
There was a [employer] Washing Machine Installer Downtime on 01/22/2025 from 0100 to 01/22/2025 at 0235. Downtime documentation of patient's care, including medication administrations, has been reconciled in the electronic record per guidelines. Refer to the
patient's paper chart under the miscellaneous tab to see printed paper medication records and downtime forms.
[2025-01-22] MEDS: SYMBICORT 80/4.5 MCG INHALER 2 PUFF INH ×2 (07:20→18:06)
[2025-01-22] MEDS: CELEXA 20 MG PO (07:34)
[2025-01-22] MEDS: TYLENOL 1000 MG PO ×3 (07:34→21:46)
[2025-01-22] MEDS: ORETIC 12.5 MG PO (07:34)
[2025-01-22] MEDS: PROTONIX 40 MG PO (07:34)
[2025-01-22] MEDS: ASPIR LOW (ENTERIC COATED) 81 MG PO (07:35)
[2025-01-22] MEDS: DIOVAN 80 MG PO (07:36)
[2025-01-22] MEDS: LIDOCAINE 4% PATCH 1 PATCH TOPICAL (07:36)
--- NOTE | 2025-01-22 09:17 | W.PN.HOSP.TC ---
Today's Communication/Plan
-
await placement
Assessment / Plan
Assessment / Plan
Physical exam:
General: Comfortable and Conversant
HEENT: Anicteric and Moist mucous membranes
Respiratory: Clear and Non Labored Respirations
Cardiac: S1/S2 and Regular Rhythm
GI: Soft and Non Tender
Rectal: No bleeding
Musculoskeletal: No edema ,(tenderness to palpation Left SI Joint)
Skin: Warm and Dry
Neuro: Awake, Alert, Oriented and Nonfocal/grossly intact
Psych: Calm
# Gluteal tendinitis left hip
d/w ortho, reviewed images
s/p 40 mg Depo- Medrol injection on 01/21
Ambulatory Dysfunction secondary to worsening osteoarthritis pain
-Left/Pelvis Y-Hwq-Bmndib proliferative arthropathy of the sacroiliac joints. Findings have progressed compared with prior studies. The findings could be related to advanced osteoarthritis, ankylosing spondylitis, or inflammatory bowel disease
-Added Lidocaine patch to Left SI joint
-Continue Tylenol 1000mg TID
-Added Oxycodone for moderate pain, and Dilaudid for severe pain
-Avoid NSAIDs due to history of GI Bleed
-Consulted PT/OT- recs SNF
CT study, no fractures.
Myelodysplastic Syndrome
-trend hgb. transfuse <7.
- Hemoglobin up trended to 8.5. Patient gets infusion at [facility] and she is due for further infusion next week for anemia.
-patient's early childhood Dr Amanad Booth at [facility]
Coronary Artery Disease
-Continue aspirin
Essential Hypertension
-Continue valsartan / HCTZ
Asthma
-Continue Breo
Depression
-Continue Celexa
Hx GI Bleed / PUD
-Continue Protonix
DVT proph: Lovenox
Code Status: Full Code
PT recs SNF.
Total time spent to see the patient, examine the patient, review data and lab result, discuss treatment plan with patient, nursing staff around 45 minutes
Anticipated Discharge: Within 24 hours
Subjective/Interval History
-
Date of Service: January 22, 2025
No chest pain
No abdominal pain
Pain is less
Objective Data
-
Vital Signs:
Vital Signs
Temp Pulse Resp BP Pulse Ox
98.1 F 86 16 150/80 96
01/22/25 07:00 01/22/25 07:36 01/22/25 07:22 01/22/25 07:36 01/22/25 07:30
I&O
01/21/25 01/22/25 01/23/25
06:59 06:59 06:59
Intake Total 1320 / 1320 720 / 720
Balance 1320 / 1320 720 / 720
--- NOTE | 2025-01-22 10:21 | CM ---
Addendum entered by Erna Nicholson 01/22/25 11:00:
[facility]
Report #: [phone]
Fax #: [phone]
Original Note:
spoke with Suzi at [facility]
bed available tomorrow - patient agreeable
IMM explained & signed. In chart
PLAN: [facility] 01/23
transportation forms on chart
[2025-01-22 11:11] VITALS: BP 157/65; PULSE 89; O2SAT 97
[2025-01-22 11:13] VITALS: BMI 27.5
[2025-01-22] MEDS: IMODIUM 2 MG PO (12:01)
[2025-01-22] MEDS: QUESTRAN 4 GRAM PO (12:02)
[2025-01-22 15:00] VITALS: BP 152/59
[2025-01-22] MEDS: LOVENOX 40 MG SC (17:06)
[2025-01-22] MEDS: REMOVE LIDOCAINE PATCH 1 PATCH REMOVE (21:46)
[2025-01-22] MEDS: ROXICODONE 5 MG PO (21:47)
[2025-01-22 23:00] VITALS: BP 153/60
[2025-01-23] MEDS: ROXICODONE 5 MG PO ×2 (03:33→13:02)
[2025-01-23] MEDS: DILAUDID 0.25 MG IV (05:45)
[2025-01-23] MEDS: SYMBICORT 80/4.5 MCG INHALER 2 PUFF INH (07:29)
[2025-01-23 07:49] VITALS: BP 161/72
[2025-01-23 08:00] VITALS: BMI 27.7
[2025-01-23] MEDS: ASPIR LOW (ENTERIC COATED) 81 MG PO (08:22)
[2025-01-23] MEDS: DIOVAN 80 MG PO (08:22)
[2025-01-23] MEDS: ORETIC 12.5 MG PO (08:23)
[2025-01-23] MEDS: CELEXA 20 MG PO (08:23)
[2025-01-23] MEDS: LIDOCAINE 4% PATCH 1 PATCH TOPICAL (08:23)
[2025-01-23] MEDS: TYLENOL 1000 MG PO (08:23)
[2025-01-23] MEDS: PROTONIX 40 MG PO (08:23)
--- NOTE | 2025-01-23 09:14 | CM ---
Addendum entered by Erna Nicholson 01/23/25 11:59:
1400 transport - patient & Suzi at [facility] notified
Original Note:
Patient discharge to [facility] today
IMM explained & signed yesterday. In chart
Spoke with Suzi at [facility] - Request after 1pm transport
community liaison officer aware
PLAN: [facility]
Report #: [id number] [phone]
Fax #: [phone]
transportation forms on chart, facility request after 1pm
--- NOTE | 2025-01-23 10:10 | W.PN.HOSP.TC ---
Today's Communication/Plan
-
dc
Assessment / Plan
Assessment / Plan
Physical exam:
General: Comfortable and Conversant
HEENT: Anicteric and Moist mucous membranes
Respiratory: Clear and Non Labored Respirations
Cardiac: S1/S2 and Regular Rhythm
GI: Soft and Non Tender
Rectal: No bleeding
Musculoskeletal: No edema ,(tenderness to palpation Left SI Joint)
Skin: Warm and Dry
Neuro: Awake, Alert, Oriented and Nonfocal/grossly intact
Psych: Calm
# Gluteal tendinitis left hip
d/w ortho, reviewed images
s/p 40 mg Depo- Medrol injection on 01/21
she is feeling better, feels ready to go to SNF , tolerating Oxy, denies constipation
Ambulatory Dysfunction secondary to worsening osteoarthritis pain
-Left/Pelvis A-Ytl-Bpztgc proliferative arthropathy of the sacroiliac joints. Findings have progressed compared with prior studies. The findings could be related to advanced osteoarthritis, ankylosing spondylitis, or inflammatory bowel disease
-Added Lidocaine patch to Left SI joint
-Continue Tylenol 1000mg TID
-Given oral Oxycodone for severe pain
-Avoid NSAIDs due to history of GI Bleed
-Consulted PT/OT- recs SNF
CT study, no fractures.
Myelodysplastic Syndrome
-trend hgb. transfuse <7.
- Hemoglobin up trended to 8.5. Patient gets infusion at [facility] and she is due for further infusion next week for anemia.
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
Coronary Artery Disease
-Continue aspirin
Essential Hypertension
-Continue valsartan / HCTZ
Asthma
-Continue Breo
Depression
-Continue Celexa
Hx GI Bleed / PUD
-Continue Protonix
DVT proph: Lovenox
Code Status: Full Code
PT recs SNF.
Total discharge time spent to see the patient, examine the patient, review data and lab result, discuss discharge plan with patient, nursing staff around 65 minutes
Anticipated Discharge: Today
Subjective/Interval History
-
Date of Service: January 23, 2025
No complaints
Feels she is ready to go to SNF
No chest pain or sob
denies constipation
Objective Data
-
Vital Signs:
Vital Signs
Temp Pulse Resp BP Pulse Ox
98.3 F 98 17 161/72 97
01/23/25 07:49 01/23/25 07:49 01/23/25 07:49 01/23/25 07:49 01/23/25 07:49
I&O
01/22/25 01/23/25 01/24/25
06:59 06:59 06:59
Intake Total 720 / 720 1440 / 1440
Balance 720 / 720 1440 / 1440
[2025-01-23] MEDS: QUESTRAN 4 GRAM PO (12:26)
[2025-01-23] MEDS: IMODIUM 2 MG PO (13:02)
[2025-01-23 13:42] VITALS: BP 152/55
--- NOTE | 2025-01-23 15:39 | W.DCSUMMARY ---
Discharge Summary
Discharge Data
Date of Admission: 01/16/25
Date of Discharge: 01/23/25
-
Pending Results: No
Hospital Course
84 years old female with history of osteoarthritis who presented with difficulty ambulating due to worsening left hip/ lower leg pain. She reported over the past year she had been experiencing worsening back pain, left knee pain, and now left hip
pain. Patient denied any recent falls. Patient was started on pain medication with Tylenol and low-dose opioid. Her pain did not improve. Imaging studies showed no osseous fracture or lytic lesions but possible left mild iliopsoas tendinitis,
severe degenerative joint disease involving lower lumbar and sacral joints. Patient was evaluated by orthopedic doctor. She was given local steroid injection over left greater trochanter area. Her pain seemed to improve. She continued to require
computer assistant. She was evaluated by physical therapy and recommended senior living facility placement. Orthopedic doctor recommended outpatient follow-up and encourage compliance with her appointments. Patient remained hemodynamically stable and
was discharged to senior living facility in a stable condition.
Discharge Plan
-
Patient Disposition: Custodial/SNF
Discharge Diagnosis/Procedures: - Gait dysfunction, acute on chronic back pain:
-Gluteal tendinitis left hip
- SI joint pain/OA
- Lumbar DDD
- Left hip OA
Patient will need to follow-up with orthopedic in the office. Status post local steroid injection over left greater trochanter.
Diet: As tolerated
Referrals:
Ian Barker DO [Non-Admitting Privileges, Orthopedics] - in two to four weeks
Anton Barton MD [Family Provider, Internal Medicine]
Prescriptions:
New
lidocaine 4 % Adhesive Patch,Medicated
1 patch topical DAILY Qty: 30 0RF
acetaminophen [Tylenol Extra Strength] 500 mg Tablet
1,000 mg PO TID Qty: 90 0RF
oxycodone 5 mg Tablet
5 mg PO Q4HPRN PRN (Reason: severe pain) Qty: 10 0RF
Continued
albuterol sulfate 1 PUFF HFA aerosol inhaler
1 puff inhalation R Q6HPRN PRN (Reason: shortness of breath)
cholecalciferol (vitamin D3) 2,000 UNITS tablet
2,000 units PO DAILY
pantoprazole 40 MG tablet,delayed release (DR/EC)
40 mg PO DAILY Qty: 30 0RF
aspirin 81 MG tablet,delayed release (DR/EC)
81 mg PO DAILY Qty: 0 0RF
valsartan-hydrochlorothiazide 80-12.5 mg tablet
1 tab PO DAILY
citalopram [Celexa] 20 mg Tablet
20 mg PO DAILY
vitamin B complex Tablet
1 tab PO DAILY
cholestyramine (with sugar) 4 gram powder in packet
1 ea PO DAILY@1300
fluticasone furoate-vilanterol [Breo Ellipta] 100-25 mcg/dose Blister With Device
2 inh INHALATION R DAILY
Discontinued
acetaminophen [Tylenol] 325 mg Tablet
650 mg PO Q6HPRN PRN (Reason: mild pain)
Discharge Orders:
Discharge Patient (As Directed); Ordered 01/23/25
Ordered By: Cyndi Greene
Discharge Date and Time
Discharge Date/Time: 01/23/25 14:24
Print Language: ROMANIAN
== END 2025-01-23 14:24 | DRG 558 ==
LOC: 3 WEST ACU 06:44
PROVIDERS: Hospitalist; Physician Assistant Medical; ADMITTING PHYSICIAN Internal Medicine; ATTENDING PHYSICIAN Internal Medicine; CONSULT PHYSICIAN Specialist; EMERGENCY PHYSICIAN Student in an Organized Health Care Education/Training Program; FAMILY PHYSICIAN Internal Medicine Geriatric Medicine
PROC: 3E0233Z Introduction of Anti-inflammatory into Muscle, Percutaneous Approach (ICD-10-PCS; 2025-01-21)
DX: M76.02 Gluteal tendinitis, left hip (principal); I50.32 Chronic diastolic (congestive) heart failure; M51.360 Other intervertebral disc degeneration, lumbar region with discogenic back pain only; M17.12 Unilateral primary osteoarthritis, left knee; M16.12 Unilateral primary osteoarthritis, left hip; M46.1 Sacroiliitis, not elsewhere classified; R26.2 Difficulty in walking, not elsewhere classified; G47.33 Obstructive sleep apnea (adult) (pediatric); G89.4 Chronic pain syndrome; I11.0 Hypertensive heart disease with heart failure; D46.9 Myelodysplastic syndrome, unspecified; E78.5 Hyperlipidemia, unspecified; F32.A Depression, unspecified; I25.10 Atherosclerotic heart disease of native coronary artery without angina pectoris; J45.909 Unspecified asthma, uncomplicated; N20.0 Calculus of kidney; I25.2 Old myocardial infarction; Z79.82 Long term (current) use of aspirin; Z79.899 Other long term (current) drug therapy; Z79.51 Long term (current) use of inhaled steroids
CPT/HCPCS: 72192; 73502; 73700; 80048; 80053; 82607; 82728; 82746; 83540; 83550; 85025; 85027; 85652; 94640; 96374; 96375; 96376; 97110; 97167; 97530; 97535; 99285

== ENCOUNTER → 2025-01-26 16:52 | Outpatient (REF) | payer MEDICARE, OTHER, SELFPAY ==
[2025-01-26 18:20] LABS: Urine Character Cloudy (Clear)
[2025-01-26 19:07] LABS: Urine Red Blood Cell 16-20 /HPF (0-2); Urine Squamous Cell 0-2 /LPF (Few); Urine White Cell 40-50 /HPF (0-5)
== END ==
LOC: OGIPHARM 16:52
PROVIDERS: ATTENDING PHYSICIAN Family Medicine
DX: N39.0 Urinary tract infection, site not specified (principal)
CPT/HCPCS: 81003; 81015; 87077; 87086; 87186

== ENCOUNTER → 2025-01-27 12:28 | Outpatient (REF) | payer OTHER, MEDICARE, SELFPAY ==
[2025-01-27 15:11] LABS: Blood Urea Nitrogen 19 mg/dl (7-17); Calcium 8.4 mg/dl (8.4-10.2); Carbon Dioxide 32 mmol/L (22-30); Chloride 99 mmol/L (98-107); Glucose 108 mg/dl (70-99); Hematocrit 20.7 % (37.0-47.0); Hemoglobin 6.3 g/dL (12.0-16.0); Mean Corp Hgb Conc. 30.4 g/dL (33.0-37.0); Mean Corpuscular Volume 81.2 fL (81.0-99.0); Potassium 2.9 mmol/L (3.5-5.1); Red Cell Dist. Width 26.5 % (11.5-14.5); Sodium 136 mmol/L (135-145); eGFR > 60.00
[2025-01-27 18:41] LABS: Absolute Neutrophils -Man Diff 6.3 10^3/uL (1.4-6.5); Platelet Count 292 10^3/uL (130-400)
[2025-01-27 18:42] LABS: Normal RBC Morphology No; Platelets Checked Yes
[2025-01-27 18:44] LABS: Anisocytosis 1+; Hypochromasia 2+; Ovalocytes 2+; Poikilocytosis 1+; Polychromasia 1+
[2025-01-27 18:45] LABS: Tear Drop Red Blood Cells 1+; Total Cells Counted 100
== END ==
LOC: OLABP 12:28
PROVIDERS: ATTENDING PHYSICIAN Family Medicine
DX: M76.02 Gluteal tendinitis, left hip (principal); I50.32 Chronic diastolic (congestive) heart failure; I25.10 Atherosclerotic heart disease of native coronary artery without angina pectoris; R26.2 Difficulty in walking, not elsewhere classified; M16.12 Unilateral primary osteoarthritis, left hip; J45.909 Unspecified asthma, uncomplicated; D46.9 Myelodysplastic syndrome, unspecified; I10 Essential (primary) hypertension
CPT/HCPCS: 36415; 80048; 85025

== ENCOUNTER 2025-01-27 21:13 | Inpatient (IN) | payer MEDICARE, OTHER, SELFPAY ==
[2025-01-27 17:23] VITALS: BP 119/55
[2025-01-27 18:00] LABS: Hematocrit 21.1 % (37.0-47.0); Hemoglobin 6.6 g/dL (12.0-16.0); Mean Corp Hgb Conc. 31.3 g/dL (33.0-37.0); Mean Corpuscular Volume 79.6 fL (81.0-99.0); Platelet Count 324 10^3/uL (130-400); Red Cell Dist. Width 26.0 % (11.5-14.5)
[2025-01-27 18:17] LABS: ALT (SGPT) 15 U/L (0-35); AST (SGOT) 21 U/L (14-36); Albumin 3.3 g/dl (3.5-5.0); Alkaline Phosphatase 60 U/L (38-126); Blood Urea Nitrogen 24 mg/dl (7-17); Calcium 8.4 mg/dl (8.4-10.2); Carbon Dioxide 29 mmol/L (22-30); Chloride 97 mmol/L (98-107); Glucose 141 mg/dl (70-99); Potassium 2.8 mmol/L (3.5-5.1); Sodium 135 mmol/L (135-145); Total Protein 5.8 g/dl (6.3-8.2); eGFR > 60.00
--- NOTE | 2025-01-27 19:05 | ED.GENMED ---
History of Present Illness
General
Chief Complaint: Abnormal Lab Value
Source: patient and spouse
Exam Limitations: none
Time Seen by Provider: 01/27/25 18:50
History of Present Illness
History of Present Illness:
84-year-old female sent in for abnormal labs. General weakness. Recent admission for orthopedic issues. Currently in rehabilitation. Missed her last medication dose for her MDS. Has required transfusions in the past. Not describing any GI
bleed issue.
Past History
Past History
ED Past Medical History: CAD, GERD, HTN, VA and Other (Peptic ulcer disease, upper GI bleed November 2014, chronic cough)
ED Past Surgical History: Orthopedic
Social History
Tobacco: Non-smoker
Alcohol: None
Drug: None
Personal:
Living: with family
Employment: Retired
Family History
Family History: Other (Noncontributory)
Review of Systems
Review of Systems
All Other Systems: Not applicable
Constitutional: Reports fatigue; Denies fever or chills
Phy Exam
Physical Exam
Physical Exam:
GENERAL: Alert and oriented in no apparent distress
EYE: Orbits normal.
NECK: Supple
CARDIAC: Regular rate and rhythm without any obvious murmurs.
LUNGS: Clear breath sounds,normal
ABDOMEN: Soft, without focal tenderness or distention. Rectal heme-negative
NEUROLOGICAL: Alert and oriented , grossly non-focal
SKIN: Warm and dry. Multiple areas of superficial ecchymosis some in a linear fashion consistent with scratching. Others with areas of ecchymosis
PSYCH: Normal and appropriate interaction.
Course
Orders/Labs/Results
Orders:
Orders
01/27/25 Breakfast
Regular
At Your Request: Limited Participation
01/27/25 17:38
Type And Crossmatch [Type+Screen] Urgent
Complete Blood Count/With Diff Urgent
Comprehensive Metabolic Panel Urgent
Iron Urgent
Comment: ADD ON
Magnesium Urgent
Comment: ADD ON
Manual Differential Urgent
Total Iron Binding Urgent
Comment: ADD ON
01/27/25 19:03
* Blood Bank Products Urgent
Blood Bank Products: *Packed RBC Leuko(PRBC's)
Quantity: 1
Transfuse Today: Yes
Reason: Anemia
IV Insert/Care/Rem.- Treatment PRN
01/27/25 19:04
EKG [Electrocardiogram (*1)] Urgent
Reason for Study: Other
Other Reason for Exam: hypokalemia
EKG- Treatment ONCE
Potassium Chloride 10% Elixir [KCl Elixir] 40 meq PO NOW STA
01/27/25 19:50
Potassium Chloride [KCl] 20 meq 0.9% Sodium Chloride 150 ml [Nss] 150 ml IV NOW
01/27/25 20:48
Admit/Transfer Patient As Directed
Co-Sign Provider:
Level of Care: Inpatient admission
Assign to:: Telemetry
Physician / Group: Mello
Diagnosis: Symptomatic Anemia, Hypokalemia, MDS
Reason for Telemetry: Arrhythmia
Date to Stop Telemetry: 01/30/25
Time to Stop Telemetry: 11:00
Reason for Hospitalization: Symptomatic Anemia, Hypokalemia, MDS
Expected length of stay greater than two midnights?: Yes
ELOS- Estimated Length of Stay in days: 2
I certify the patient meets the requirements for IP care: Yes
PRN Pain Medication Management As Directed
May give lesser potent ordered pain med per pt: Yes
preference::
Protocol:: Medication orders for pain may be administered in a
manner that supports deferring to patient preference
when the pt is:
- Requesting an ordered lesser potent pain medication.
Least to most potent pain medications are defined
as: acetaminophen < NSAID < tramadol < opioids
(morphine, oxycodone, hydromorphone).
- Requesting a lesser dose of the same medication IF
ORDERED.
- Requesting a less intrusive route of administration
if both routes are prescribed by the provider (PO <
IV).
01/27/25 20:49
Code Status As Directed
Resuscitation Status: Full Code
01/27/25 20:53
Add On- LAB Urgent
Tests Added?: Magnesium
01/27/25 21:49
Albuterol Nebs [Ventolin Nebules] 2.5 mg INH R Q4HPRN PRN
Oxycodone [Roxicodone] 5 mg PO Q4HPRN PRN severe pain
01/27/25 21:49
Activity As Directed
Activity Level: Ambulate
With Assistance
EKG with chest pain [ECG as needed] As Directed
ECG as needed for:: Chest Pain
I/O [Intake/ Output] As Directed
Frequency: Per unit guidelines
Pneumatic Compression Sleeves As Directed
Type: Knee high
Vital Signs As Directed
Frequency: Per unit guidelines
Oxygen Therapy [O2 Therapy] [RESP] Routine
Titrate/Wean O2 to maintain O2 sat greater than (%): 94
Ot Eval And Treat Routine
PT Consult [Pt Eval And Treat] Routine
Activity Level: Ambulate
With Assistance
DX Deep Vein Thrombosis Video Routine
01/27/25 22:00
Acetaminophen [Tylenol] 1,000 mg PO TID
Gabapentin [Neurontin] 100 mg PO TID
01/28/25 06:00
Basic Metabolic Panel IN AM
Complete Blood Count/No Diff IN AM
01/28/25 08:00
Aspirin Low Dose EC [Aspir Low (Enteric Coated)] 81 mg PO DAILY
Budesonide/Formoterol 80/4.5 [Symbicort 80/4.5 Mcg Inhaler] 2 puff INH R BID
Citalopram [Celexa] 20 mg PO DAILY
Lidocaine [Lidocaine 4% Patch] 1 patch TOPICAL DAILY
Apply Lidocaine patch(s) to:: Low Back
Pantoprazole [Protonix] 40 mg PO DAILY
Valsartan [Diovan] 80 mg PO DAILY
01/28/25 13:00
Cholestyramine [Questran] 4 gram PO DAILY@1300
01/30/25 11:00
DC Protocol for Telemetry ONCE
Abnormal Lab Results
01/27/25
17:38
RBC 2.65 L 10^6/uL
(4.20-5.40)
Hgb 6.6 L* g/dL
(12.0-16.0)
Hct 21.1 L %
(37.0-47.0)
MCV 79.6 L fL
(81.0-99.0)
MCH 24.9 L pg
(27.0-31.0)
MCHC 31.3 L g/dL
(33.0-37.0)
RDW 26.0 H %
(11.5-14.5)
Abs Neuts (Manual) 6.9 H 10^3/uL
(1.4-6.5)
Band Neutrophils 6 H %
(0-3)
Lymphocytes (Manual) 15 L %
(20-51)
Potassium 2.8 L mmol/L
(3.5-5.1)
Chloride 97 L mmol/L
(98-107)
BUN 24 H mg/dl
(7-17)
Glucose 141 H mg/dl
(70-99)
Magnesium 1.2 L mg/dl
(1.6-2.3)
Iron 32 L ug/dl
(37-170)
TIBC 201 L ug/dl
(265-497)
% Saturation 15 L %
(20-50)
Total Protein 5.8 L g/dl
(6.3-8.2)
Albumin 3.3 L g/dl
(3.5-5.0)
Antibody Screen Positive A
(Negative)
Crossmatch IS Only See Detail
MTS Gel Crossmatch See Detail
01/27/25 17:38
01/27/25 17:38
Vital Signs
Initial and Last Documented VS:
Initial Vital Signs
Temp Pulse Resp BP Pulse Ox
98.1 F 101 16 119/55 96
01/27/25 17:23 01/27/25 17:23 01/27/25 17:23 01/27/25 17:23 01/27/25 17:23
Last Documented Vital Signs
Temp Pulse Resp BP Pulse Ox
98.2 F 97 16 127/52 95
01/28/25 00:05 01/28/25 00:05 01/28/25 00:05 01/28/25 00:05 01/27/25 22:41
MDM/Problems Addressed
Differential Diagnosis Includes:
Patient with recent drop in hemoglobin. 2 units in 1 week. Also hypokalemia. Generally weak. Check rectal exam. Manage GI bleed if positive. Careful blood transfusion manage potassium.
*Pulse Oximetry
SaO2: 96
Oxygen Mode of Delivery: Room air
Patient hypoxic: no
*EKG
Interpreted by ED Provider?: Yes
Interpretation: abnormal
Comparison EKG: changes noted
Heart Rate: 94
Rate: normal
Rhythm: sinus
[place]: normal axis
Interval: normal interval
QRS Pattern: left vent hypertrophy
Ischemia: non-specific ST changes
*Outsole Splicer Interpretation
Rate: tachycardiac
Interpretation: abnormal
Heart Rate: 102
Rhythm: sinus
*Critical Care Note
Total Time (30-74mins, 75-104mins- exclusive of procedures): Not Applicable
Data Reviewed
Review of Other/Old Records Reveals: Labs, Records, Testing and Discharge Summary
ED Attending Note
-
Portions of this chart may have been created with voice recognition software.� Occasional wrong word or��sound alike� substitutions may have occurred due to the inherent limitations of voice recognition software.
Discharge Plan
Departure
Patient Disposition: Admit
Date of Disposition: 01/27/25
Time of Disposition: 19:49
Presentation/result/management discussed w/ accepting MD/DO: Hospitalist
Discharge Problem:
Symptomatic anemia, MDS, Hypokalemia
Interventions
Interventions:
*Risk Screen - Suicide Last Done: 01/27/25 20:28
*General Assessment Last Done: 01/27/25 20:28
*Neglect/Abuse Screening Last Done: 01/27/25 20:28
*ED- Fall Risk Assessment Last Done: 01/27/25 22:18
*ED COVID-19 Vaccine History Last Done: 01/27/25 20:28
*Nursing Disposition Last Done: 01/27/25 22:18
Discharge Date and Time
Discharge Date/Time: 01/27/25 22:25
[2025-01-27] MEDS: KCL ELIXIR 40 MEQ PO (20:01)
[2025-01-27] MEDS: KCL 160 MEQ IV (20:01)
--- NOTE | 2025-01-27 20:05 | PHANOTE ---
[facility] NOTE- [facility], PATIENT STATED HER PAIN MEDICATION WERE CHANGED THIS MORNING
[2025-01-27 20:33] VITALS: BP 123/42
--- NOTE | 2025-01-27 20:45 | EDRN ---
Patient provided with a warm blanket, Dr. Sarkar had been in to see patient, patient aware at this time we will be waiting for a bed.
[2025-01-27 20:51] LABS: Absolute Neutrophils -Man Diff 6.9 10^3/uL (1.4-6.5); Normal RBC Morphology No; Platelets Checked Yes
[2025-01-27 20:52] LABS: Anisocytosis 1+; Hypochromasia 2+; Ovalocytes 2+; Poikilocytosis 1+; Polychromasia 1+; Tear Drop Red Blood Cells 1+; Total Cells Counted 100
--- NOTE | 2025-01-27 20:53 | HPS.HSE ---
Family Physician
-
Family Physician: Anton Barton
Chief Complaint
-
Weakness, Abnormal Labs.
History of Present Illness
Patient is an 84y F with PMH significant for MDS, ASCVD and hypertension who presents to ED for evaluation of abnormal labs and complaint of weakness. Patient was recently hospitalized here at for low back pain / ambulatory dysfunction. This
was ultimately attributed to tendinitis in the gluteal / ileopsoas regions and patient was discharged to SNF for further rehab. She continues to complain of low back pain with movement. She also complains of pain from the soles of the feet
radiating up the legs to the hips that occurs with standing / walking. She has felt more weak over the past few days.
Patient has known MDS followed at [facility] in [place]. She typically receives EPO / Procrit injection every 3 weeks. Her last dose was 5 weeks ago due to hospitalization, subsequent rehab, etc.
Patient had labs done today at [facility] which reveals low Hgb and low potassium and she was sent to the ED for further evaluation.
Medical History
Past Medical History
Past Medical History: Reports Other
Additional Past Medical History:
Myelodysplastic Syndrome
Coronary Artery Disease / Carotid Stenosis
Chronic HFpEF
Essential Hypertension
Dyslipidemia
Asthma
Obstructive Sleep Apnea
Depression
Nephrolithiasis
GI Bleed / PUD
Degenerative Disc Disease / Spinal Stenosis
Past Surgical History: Reports Other
Additional Past Surgical History:
Ureteral Stent with Lithotripsy
Left Hand/Wrist Surgery
Bilateral Rotator Cuff
Appendectomy
Social History
Tobacco: Non-smoker
Alcohol: Occasional
Family History
Family History: Not pertinent
Allergies / Home Medications
Allergies reflects when Allergies were last updated in [employer]
Home Medications with original date entered in [employer]
Allergy/Medication List:
Allergies
Allergy/AdvReac Type Severity Reaction Status Date / Time
bandaids Allergy Itching Uncoded 01/27/25 17:26
Home Medications
albuterol sulfate 90 mcg/actuation aerosol inhaler 1 puff inhalation R Q6HPRN PRN shortness of breath 04/17/15
cholecalciferol (vitamin D3) 50 mcg (2,000 unit) tablet 2,000 units PO DAILY Supplement 04/17/15
aspirin 81 mg tablet,delayed release 81 mg PO DAILY ##0 04/22/15
pantoprazole 40 mg tablet,delayed release 40 mg PO DAILY ##30 04/22/15
valsartan 80 mg-hydrochlorothiazide 12.5 mg tablet 1 tab PO DAILY Blood Pressure 07/12/22
cholestyramine (with sugar) 4 gram powder for susp in a packet 1 ea PO DAILY@1300 01/16/25
citalopram 20 mg tablet (Celexa) 20 mg PO DAILY depression/anxiety 01/16/25
fluticasone furoate 100 mcg-vilanterol 25 mcg/dose inhalation powder (Breo Ellipta) 2 inh inhalation R DAILY Lung/Breathing Issues 01/16/25
vitamin B complex 1 tab PO DAILY Supplement 01/16/25
acetaminophen 500 mg tablet (Tylenol Extra Strength) 1,000 mg (2 x 500 mg) PO TID #90 tabs 01/23/25
lidocaine 4 % topical patch 1 patch topical DAILY #30 ea 01/23/25
oxycodone 5 mg tablet 5 mg PO Q4HPRN PRN severe pain 01/27/25
Review of Systems
-
History Source: Patient
A 12 point ROS was completed and negative except as noted: Yes
Constitutional: Reports Fatigue; Denies Fever or Chills
EENT: Denies Sore Throat
Respiratory: Denies Cough or Trouble Breathing
Cardiac: Denies Chest Pain or Palpitations
Abdomen/GI: Denies Abdominal Pain, Nausea, Vomiting or Diarrhea
: Denies Dysuria or Frequency
Musculoskeletal: Reports Edema and Other (Low back pain / leg pain.)
Neurological: Denies Dizzy or Headache
Physical Exam
Vital Signs
Vital Signs
Temp Pulse Resp BP Pulse Ox
98.1 F 101 20 123/42 97
01/27/25 17:23 01/27/25 20:33 01/27/25 20:33 01/27/25 20:33 01/27/25 20:33
Physical Exam
General: Other (84y F in no acute distress.)
HEENT: Moist mucous membranes and PERRLA
Respiratory: Clear; No Wheezes, Rales or Rhonchi
Cardiac: S1/S2 and Regular Rhythm; No Murmur
GI: Soft, Non Tender, Non Distended and Normal Bowel Sounds
Musculoskeletal: No Clubbing, No Cyanosis and Other (1-2+ edema b/l LEs. Scattered ecchymoses.)
Neuro: AO x 3
Laboratory Results
-
01/27/25 17:38
01/27/25 17:38
Laboratory Results
Total Bilirubin 1.1 mg/dl (0.2-1.3) 01/27/25 17:38
AST 21 U/L (14-36) 01/27/25 17:38
ALT 15 U/L (0-35) 01/27/25 17:38
Alkaline Phosphatase 60 U/L (38-126) 01/27/25 17:38
Impression/Plan
-
A/P: Patient is an 84y F with PMH significant for MDS, ASCVD and hypertension who presents to ED for evaluation of weakness and abnormal labs.
Symptomatic Acute on Chronic Anemia
MDS
- Admit for further evaluation and treatment.
- Hgb 6.6 today compared to recent discharge value of 8.5.
- No blood loss noted, black stools, etc.
- Transfusion ordered in the ED.
- Follow for improvement in H&H.
- Hematology evaluation for additional recommendations.
- ? outpatient arrangements for usual EPO injections while at [facility].
Hypokalemia
- ? med effect from HCTZ.
- Hold / discontinue HCTZ.
- Potassium replacement given IV and PO in the ED.
- Follow for improvement and provide additional replacement if needed.
- Check Mg.
ASCVD
- Stable. No complaints of chest pain, dyspnea, etc.
- Continue current CV med regimen.
Benign Hypertension
- Continue valsartan. Hold HCTZ as noted above.
- Adjust regimen as needed for improved control.
Asthma without Acute Exacerbation
- Stable. Continue Breo. Albuterol PRN.
GERD / PUD
- Stable. No evidence of active bleeding at present.
- Continue PPI.
DVT Prophylaxis: SCDs
Code Status: Full
[2025-01-27 21:37] LABS: Magnesium 1.2 mg/dl (1.6-2.3)
[2025-01-27 22:10] LABS: Iron 32 ug/dl (37-170)
[2025-01-27 22:20] LABS: Total Iron Binding Capacity 201 ug/dl (265-497)
[2025-01-27 22:41] VITALS: BP 137/57; BMI 28.4
[2025-01-27 23:35] VITALS: BP 129/55
[2025-01-27] MEDS: TYLENOL 1000 MG PO (23:41)
[2025-01-27] MEDS: NEURONTIN 100 MG PO (23:42)
[2025-01-27] MEDS: ROXICODONE 5 MG PO (23:44)
[2025-01-27 23:50] VITALS: BP 129/55
[2025-01-28] VITALS (10 sets, daily range): BP systolic 126–161; BP diastolic 52–73; PULSE 97; O2SAT 95
--- NOTE | 2025-01-28 00:58 | TRANSFER ---
Patient received from the ED around 10:30pm. Patient oriented X3. Is not in pain at the moment. Bruising throughout her body, per Patient this is her baseline for her skin.
[2025-01-28] MEDS: MAGNESIUM SULFATE 50 IV (02:51)
--- NOTE | 2025-01-28 03:42 | PTCARENOTE ---
Addendum entered by Jean-Pierre Jones RN 01/28/25 04:43:
Blood bank and grounds crew supervisor made aware of the situation>
Original Note:
Blodd transfusion initiated by myself and co signed by Ella ([email or web address]) at 23:50 on 01/27/25. Vitals pre transfusion: BP 129/55, HR 96, Temp 98.2, RR 16. After 15 minutes vitals were: BP 127/52, HR 97, Temp 98.2, RR 16. No signs of reaction. Transfusion
ended at 1:36 on 01/28/25, vital signs were: BP 126/59, HR 97, Temp 98.1, RR 16. no signs of reaction.
[2025-01-28] MEDS: SYMBICORT 80/4.5 MCG INHALER 2 PUFF INH ×2 (07:44→19:36)
[2025-01-28] MEDS: ASPIR LOW (ENTERIC COATED) 81 MG PO (08:02)
[2025-01-28] MEDS: DIOVAN 80 MG PO (08:02)
[2025-01-28] MEDS: PROTONIX 40 MG PO (08:03)
[2025-01-28] MEDS: CELEXA 20 MG PO (08:03)
[2025-01-28] MEDS: NEURONTIN 100 MG PO ×3 (08:03→21:46)
[2025-01-28] MEDS: TYLENOL 1000 MG PO ×3 (08:03→21:46)
[2025-01-28] MEDS: LIDOCAINE 4% PATCH 1 PATCH TOPICAL (08:04)
[2025-01-28 08:43] LABS: Blood Urea Nitrogen 20 mg/dl (7-17); Calcium 8.7 mg/dl (8.4-10.2); Carbon Dioxide 25 mmol/L (22-30); Chloride 103 mmol/L (98-107); Estimated Creatinine Clearance 55 ml/min; Glucose 89 mg/dl (70-99); Magnesium 2.4 mg/dl (1.6-2.3); Sodium 137 mmol/L (135-145); eGFR > 60.00
[2025-01-28 08:50] LABS: Potassium 4.0 mmol/L (3.5-5.1)
[2025-01-28 11:07] LABS: Hematocrit 22.8 % (37.0-47.0); Hemoglobin 7.3 g/dL (12.0-16.0); Mean Corp Hgb Conc. 32.0 g/dL (33.0-37.0); Mean Corpuscular Volume 80.3 fL (81.0-99.0); Platelet Count 288 10^3/uL (130-400); Red Cell Dist. Width 23.7 % (11.5-14.5)
--- NOTE | 2025-01-28 11:15 | CON.ONC ---
Consultation
-
Date Consultation Requested: 01/27/25
Date Consultation Performed: 01/28/25
Requesting Provider: Dr Hector Sarkar
Performing Provider: Dr Sarah Aparicio
Reason for Consultation: anemia/MDS
Impression
Impression
MDS/RARS, on luspatercept per Dr. Amanda Booth at [facility]
symptomatic anemia
ambulatory dysfunction/orthopedic issues
Plan
Plan
Luspatercept cannot be given as an inpatient (is not an YUKI)
Would support w/ pRBCs to goal hgb > 8. Does not need any special products
PT, return to rehab
f/u with Dr. Booth at [facility] as soon as able to resume luspatercept
will sign off, please call w/ heme questions
Patient History
History of Present Illness
This is an 84yo F w/ h/o MDS (RARS), currently treated at [facility] (Dr. Amanda Booth), on treated w/ luspatercept q3 weeks. She was hospitalized here recently with back pain/orthopedic issues, and d/c'd to rehab. She's been struggling with
rehab due to pain in her feet. She was sent to the ER yesterday for abnormal labs, with hgb of 6.6 in the ER. She was transfused 1u PRBc in the ER, repeat CBC is pending.
She's a couple weeks overdue for her luspatercept injection due to recent hospital admission.
She denies bleeding
Past-Medical/Surgical History
Past Medical History
Past Medical History: Reports Other
Additional Past Medical History:
Myelodysplastic Syndrome
Coronary Artery Disease / Carotid Stenosis
Chronic HFpEF
Essential Hypertension
Dyslipidemia
Asthma
Obstructive Sleep Apnea
Depression
Nephrolithiasis
GI Bleed / PUD
Degenerative Disc Disease / Spinal Stenosis
Past Surgical History: Reports Other
Additional Past Surgical History:
Ureteral Stent with Lithotripsy
Left Hand/Wrist Surgery
Bilateral Rotator Cuff
Appendectomy
Social History
Tobacco: Non-smoker
Alcohol: Occasional
Family History
Family History: Not pertinent
Patient Medication
�Medication �Instructions �Recorded �Confirmed �Last Taken �Type
albuterol sulfate 90 mcg/actuation 1 puff inhalation R Q6HPRN PRN 04/17/15 01/27/25 Unknown History
aerosol inhaler shortness of breath
cholecalciferol (vitamin D3) 50 2,000 units PO DAILY Supplement 04/17/15 01/27/25 01/27/25 History
mcg (2,000 unit) tablet
aspirin 81 mg tablet,delayed 81 mg PO DAILY ##0 04/22/15 01/27/25 01/27/25 Rx
release
pantoprazole 40 mg tablet,delayed 40 mg PO DAILY ##30 04/22/15 01/27/25 01/27/25 Rx
release
valsartan 80 1 tab PO DAILY Blood Pressure 07/12/22 01/27/25 01/27/25 History
mg-hydrochlorothiazide 12.5 mg
tablet
cholestyramine (with sugar) 4 gram 1 ea PO DAILY@1300 01/16/25 01/27/25 01/27/25 History
powder for susp in a packet Gastrointestinal Issue
citalopram 20 mg tablet (Celexa) 20 mg PO DAILY depression/anxiety 01/16/25 01/27/25 01/27/25 History
fluticasone furoate 100 2 inh inhalation R DAILY 01/16/25 01/27/25 01/27/25 History
mcg-vilanterol 25 mcg/dose Lung/Breathing Issues
inhalation powder (Breo Ellipta)
vitamin B complex 1 tab PO DAILY Supplement 01/16/25 01/27/25 01/27/25 History
acetaminophen 500 mg tablet 1,000 mg (2 x 500 mg) PO TID #90 01/23/25 01/27/25 01/27/25 Rx
(Tylenol Extra Strength) tabs
lidocaine 4 % topical patch 1 patch topical DAILY #30 ea 01/23/25 01/27/25 01/26/25 Rx
bisacodyl 10 mg rectal suppository 10 mg GA DAILYPRN PRN if no bm 01/27/25 01/27/25 Unknown History
(Dulcolax (bisacodyl)) aftr mom give on day 5
capsaicin 0.05 %-menthol 2 % 1 applic topical BID b/l feet 01/27/25 01/27/25 01/27/25 History
topical cream
cyclobenzaprine 5 mg tablet 5 mg PO BID Muscle Spasms 01/27/25 01/27/25 01/27/25 History
magnesium hydroxide 400 mg/5 mL 2,400 mg PO [id number] PRN if no bm 01/27/25 01/27/25 Unknown History
oral suspension (Milk of Magnesia) by 3rd give on day 4
oxycodone 10 mg tablet,crush 10 mg PO BID Pain 01/27/25 01/27/25 Unknown History
resistant,extended release 12 hr
(OxyContin)
oxycodone 5 mg tablet 5 mg PO Q4HPRN PRN severe pain 01/27/25 01/27/25 01/27/25 History
sodium phosphates 19 gram-7 118 ml GA DAILYPRN PRN if no bm 01/27/25 01/27/25 Unknown History
gram/118 mL enema (Fleet Enema) aftr dulcolax give on day 6
Active Medications
Generic Name Dose Route Start Last Admin
Trade Name Freq PRN Reason Stop Dose Admin
Acetaminophen 1,000 mg 01/27/25 22:00 01/28/25 08:03
Acetaminophen 500 Mg Tablet PO 02/24/25 21:59 1,000 mg
TID MG Administration
Albuterol Sulfate 2.5 mg 01/27/25 21:49
Albuterol Nebs 2.5 Mg/3 Ml Ampul INH
R Q4HPRN PRN
SOB
Protocol
Aspirin 81 mg 01/28/25 08:00 01/28/25 08:02
Aspirin 81 Mg (Enteric Coated) Tablet PO 02/25/25 07:59 81 mg
DAILY MG Administration
Budesonide/Formoterol Fumarate 2 puff 01/28/25 08:00 01/28/25 07:44
Symbicort Inhaler 80/4.5 INH 02/25/25 07:59 2 puff
R BID MG Administration
Protocol
Cholestyramine Resin 4 gram 01/28/25 13:00
Cholestyramine 4 Gram Packet PO 02/25/25 12:59
DAILY@1300 MG
Citalopram Hydrobromide 20 mg 01/28/25 08:00 01/28/25 08:03
Citalopram 20 Mg Tablet PO 02/25/25 07:59 20 mg
DAILY MG Administration
Gabapentin 100 mg 01/27/25 22:00 01/28/25 08:03
Gabapentin 100 Mg Capsule PO 02/24/25 21:59 100 mg
TID MG Administration
Lidocaine 1 patch 01/28/25 08:00 01/28/25 08:04
Lidocaine 4% Topical Patch TOPICAL 02/25/25 07:59 1 patch
DAILY MG Administration
Protocol
Oxycodone HCl 5 mg 01/27/25 21:49 01/27/25 23:44
Oxycodone 5 Mg Regular Release Tablet PO 02/10/25 21:48 5 mg
Q4HPRN PRN Administration
severe pain
Pantoprazole Sodium 40 mg 01/28/25 08:00 01/28/25 08:03
Pantoprazole 40 Mg Delayed Release Tablet PO 02/25/25 07:59 40 mg
DAILY MG Administration
Patch Removal 0 patch 01/28/25 20:00
Remove Lidocaine Patch REMOVE 02/25/25 19:59
DAILY@2000 MG
Sodium Chloride 0 flush 01/27/25 22:00
Sodium Chloride 0.9% (Flush) Syringe IV 02/24/25 21:59
PER PROTOCOL MG
Valsartan 80 mg 01/28/25 08:00 01/28/25 08:02
Valsartan 80 Mg Tablet PO 02/25/25 07:59 80 mg
DAILY MG Administration
Review of Systems
-
All Other Systems: Not reviewed unless documented
Physical Exam
-
General: Well Developed, Well Nourished, No Apparent Distress, Comfortable and Conversant; Negative Respiratory Distress or Appears in Distress
HEENT: Negative Jaundice
Cardiology: Normal Sinus Rhythm
Musculoskeletal: No Clubbing, No Cyanosis and No Edema
Extremities: Negative Phlebitic Signs
Neurology: Non Focal, No Lateralizing Symptoms and No Word Finding Difficulty
Skin: Warm and Dry
Psych: Calm and Intact Judgement/Insight
Labs
Lab Results
WBC 8.3 10^3/uL (4.8-10.8) 01/28/25 09:54
RBC 2.84 10^6/uL (4.20-5.40) L 01/28/25 09:54
Hgb 7.3 g/dL (12.0-16.0) L 01/28/25 09:54
Hct 22.8 % (37.0-47.0) L 01/28/25 09:54
MCV 80.3 fL (81.0-99.0) L 01/28/25 09:54
MCH 25.7 pg (27.0-31.0) L 01/28/25 09:54
MCHC 32.0 g/dL (33.0-37.0) L 01/28/25 09:54
RDW 23.7 % (11.5-14.5) H 01/28/25 09:54
Plt Count 288 10^3/uL (130-400) 01/28/25 09:54
MPV Not Reportable 01/28/25 09:54
Creatinine 0.6 mg/dL (0.6-1.0) 01/28/25 07:02
Vital Signs
Vital Signs
Temp Pulse Resp BP Pulse Ox
99.2 F 106 18 148/73 94
01/28/25 08:19 01/28/25 08:19 01/28/25 08:19 01/28/25 08:19 01/28/25 08:19
--- NOTE | 2025-01-28 11:44 | W.PN.HOSP.TC ---
Today's Communication/Plan
-
Assessment / Plan
Assessment / Plan
General: No Apparent Distress, Comfortable and Conversant
HEENT: NormoCephalic, Moist mucous membranes, Atraumatic
Respiratory: Clear and Non Labored Respirations
Cardiac: S1/S2 and Regular Rhythm; No Rub or Gallop
GI: Soft, Non Tender, Non Distended and Normal Bowel Sounds
Musculoskeletal: No Edema, no deformity
Skin: Warm and dry
: NO Dhaliwal
Neuro: Awake, Alert, Nonfocal/grossly intact
Psych: Calm and Intact Judgment/Insight
Ms. Ayala is an 84-year-old female with medical history of MDS (follows with Dr. Amanda Booth at [facility]), HFpEF, hypertension, CAD, carotid stenosis, and ABIOLA who presented for evaluation of abnormal outpatient labs and weakness. She
usually gets injections of luspatercept every 3 weeks however missed her last dose due to hospitalization and rehab for back pain. Her hemoglobin at the time of evaluation in the emergency department was 6.6, her potassium was 2.8 and her magnesium
was 1.2. She was admitted for blood transfusion and electrolyte repletion.
Anemia requiring transfusion:
- Hemoglobin 6.6
- Likely due to MDS and having missed last dose of luspatercept, which she typically gets every 3 weeks however missed her last dose due to recent hospitalization and rehab for back pain
- Transfuse 1 unit PRBCs with improvement in hemoglobin to 7.3
- Will transfuse a second unit PRBCs to maintain hemoglobin greater than 8.0 per hematology recommendations
- Would likely be ready for discharge tomorrow 01/29 will need to follow-up closely with her primary graphic design specialist at [facility] to resume luspatercept
Hypokalemia:
- Significantly low serum potassium of 2.8 at time of admission
Repleted IV n.p.o.
- 4.0 this morning
- Magnesium of 1.2 also repleted and now within normal limits
- Holding home HCTZ
DVT prophylaxis: SCDs
CODE STATUS: Full code
Total time spent on today's encounter was 44 minutes
Anticipated Discharge: 24 - 48 hours
Subjective/Interval History
-
Date of Service: January 28, 2025
Patient was seen and examined at bedside this morning. Feeling well after transfusion 1 unit PRBCs. Plan is to transfuse a second unit PRBCs to maintain hemoglobin greater than 8.0 in the setting of MDS.
Objective Data
-
Labs:
Laboratory Results
01/28/25 01/28/25
07:02 09:54
WBC Cancelled 8.3
Hgb Cancelled 7.3 L
Hct Cancelled 22.8 L
Plt Count Cancelled 288
Sodium 137
Potassium 4.0 D
Chloride 103
Carbon Dioxide 25
BUN 20 H
Creatinine 0.6
Glucose 89
Calcium 8.7
Vital Signs:
Vital Signs
Temp Pulse Resp BP Pulse Ox
99.2 F 106 18 148/73 94
01/28/25 08:19 01/28/25 08:19 01/28/25 08:19 01/28/25 08:19 01/28/25 08:19
I&O
01/27/25 01/28/25 01/29/25
06:59 06:59 06:59
Intake Total 240 / 240
Balance 240 / 240
Review of Systems
-
History Source: Patient
All other systems: Reviewed and negative
Physical Exam
-
General: No Apparent Distress
--- NOTE | 2025-01-28 12:13 | CM ---
CM reviewed chart, patient seen bedside, initial assessment completed. Patient receiving blood transfusion. Patient admitted from [facility] where she was receiving short term rehab. Prior to [facility], patient resides at home with her , one
level home, three steps to enter. Patient reports typically using RW for ambulation, was unable to use RW at rehab. PCP Anton Barton, pharmacy [facility], confirms prescription coverage. Patient agreeable to return to [facility],
referral placed in [facility]. CM will continue to follow for all discharge planning needs.
Plan; return to [facility] for STR, referral placed in [facility]
[2025-01-28] MEDS: QUESTRAN 4 GRAM PO (13:02)
[2025-01-29 03:17] VITALS: BP 148/90
[2025-01-29 07:15] VITALS: BP 165/80
[2025-01-29] MEDS: NEURONTIN 100 MG PO ×2 (07:35→15:18)
[2025-01-29] MEDS: DIOVAN 80 MG PO (07:36)
[2025-01-29] MEDS: PROTONIX 40 MG PO (07:36)
[2025-01-29] MEDS: CELEXA 20 MG PO (07:36)
[2025-01-29] MEDS: ASPIR LOW (ENTERIC COATED) 81 MG PO (07:36)
[2025-01-29] MEDS: TYLENOL 1000 MG PO ×2 (07:36→15:17)
[2025-01-29] MEDS: LIDOCAINE 4% PATCH TOPICAL (07:37)
[2025-01-29] MEDS: SYMBICORT 80/4.5 MCG INHALER 2 PUFF INH (07:47)
[2025-01-29 09:30] LABS: Hematocrit 28.4 % (37.0-47.0); Hemoglobin 9.1 g/dL (12.0-16.0); Mean Corp Hgb Conc. 32.0 g/dL (33.0-37.0); Mean Corpuscular Volume 82.6 fL (81.0-99.0); Platelet Count 266 10^3/uL (130-400); Red Cell Dist. Width 22.3 % (11.5-14.5)
[2025-01-29 10:11] LABS: Blood Urea Nitrogen 16 mg/dl (7-17); Calcium 8.7 mg/dl (8.4-10.2); Carbon Dioxide 30 mmol/L (22-30); Chloride 102 mmol/L (98-107); Estimated Creatinine Clearance 55 ml/min; Glucose 115 mg/dl (70-99); Magnesium 1.7 mg/dl (1.6-2.3); Potassium 3.8 mmol/L (3.5-5.1); Sodium 137 mmol/L (135-145); eGFR > 60.00
[2025-01-29 10:29] LABS: Nucleated Red Blood Cells % 1.9 %
[2025-01-29 11:15] VITALS: BP 139/62
--- NOTE | 2025-01-29 11:50 | CM ---
Following up on patient. MD team stated that patient is ready and the recommendation is SNF. [facility] and this is where patient wants to dicsharge to.
Transportation forms provided to [employer] and arranged for 4pm. IMM completed/ signed at 11:00 AM. Patient will inform her of her time she is leaving.
[facility] is aware of this transfer.
Plan: Discharge to [facility] at 4pm
Report:[phone]
--- NOTE | 2025-01-29 12:12 | W.DCSUMMARY ---
Discharge Summary
Discharge Data
Date of Admission: 01/27/25
Date of Discharge: 01/29/25
Total time spent discharging patient (in min): 45
-
Pending Results: No
Hospital Course
Ms. Ayala is an 84-year-old female with medical history of MDS (follows with Dr. Amanda Booth at [facility]), HFpEF, hypertension, CAD, carotid stenosis, and ABIOLA who presented for evaluation of abnormal outpatient labs and weakness. She
usually gets injections of luspatercept every 3 weeks however missed her last dose due to hospitalization and rehab for back pain. Her hemoglobin at the time of evaluation in the emergency department was 6.6, her potassium was 2.8 and her magnesium
was 1.2. She was admitted for blood transfusion and electrolyte repletion.
She received transfusion of 2 units packed red blood cells. Her hemoglobin improved to 9.1. She was evaluated by heme-onc who recommended outpatient follow-up with her primary oncology team for resumption of luspatercept. Her potassium was
repleted IV and orally and is now within normal limits. Her magnesium was also repleted. She is on combination valsartan-hydrochlorothiazide at home. However her hydrochlorothiazide will be held at discharge considering her significant
hypokalemia. She will be continued on valsartan 80 mg daily. She was started on low-dose gabapentin for neuropathy. At time of hospital discharge she was medically stable. She will need to follow-up with her primary care physician and with her
primary oncology team.
General: No Apparent Distress, Comfortable and Conversant
HEENT: NormoCephalic, Moist mucous membranes, Atraumatic
Respiratory: Clear and Non Labored Respirations
Cardiac: S1/S2 and Regular Rhythm; No Rub or Gallop
GI: Soft, Non Tender, Non Distended and Normal Bowel Sounds
Musculoskeletal: No Edema, no deformity
Skin: Warm and dry
: NO Dhaliwal
Neuro: Awake, Alert, Nonfocal/grossly intact
Psych: Calm and Intact Judgment/Insight
Discharge Plan
-
Patient Disposition: Correction/SNF
Discharge Diagnosis/Procedures: Anemia requiring transfusion
Activity Restrictions/Additional Instructions:
Ms. Ayala is an 84-year-old female with medical history of MDS (follows with Dr. Amanda Booth at [facility]), HFpEF, hypertension, CAD, carotid stenosis, and ABIOLA who presented for evaluation of abnormal outpatient labs and weakness. She
usually gets injections of luspatercept every 3 weeks however missed her last dose due to hospitalization and rehab for back pain. Her hemoglobin at the time of evaluation in the emergency department was 6.6, her potassium was 2.8 and her magnesium
was 1.2. She was admitted for blood transfusion and electrolyte repletion.
She received transfusion of 2 units packed red blood cells. Her hemoglobin improved to 9.1. She was evaluated by heme-onc who recommended outpatient follow-up with her primary oncology team for resumption of luspatercept. Her potassium was
repleted IV and orally and is now within normal limits. Her magnesium was also repleted. She is on combination valsartan-hydrochlorothiazide at home. However her hydrochlorothiazide will be held at discharge considering her significant
hypokalemia. She will be continued on valsartan 80 mg daily. She was started on low-dose gabapentin for neuropathy. At time of hospital discharge she was medically stable. She will need to follow-up with her primary care physician and with her
primary oncology team.
Referrals:
Anton Barton MD [Family Provider, Internal Medicine]
Prescriptions:
New
valsartan 80 mg Tablet
80 mg PO DAILY 30 Days Qty: 30 0RF
gabapentin 100 mg Capsule
100 mg PO TID 30 Days Qty: 90 0RF
Continued
albuterol sulfate 1 PUFF HFA aerosol inhaler
1 puff inhalation R Q6HPRN PRN (Reason: shortness of breath)
cholecalciferol (vitamin D3) 2,000 UNITS tablet
2,000 units PO DAILY
pantoprazole 40 MG tablet,delayed release (DR/EC)
40 mg PO DAILY Qty: 30 0RF
aspirin 81 MG tablet,delayed release (DR/EC)
81 mg PO DAILY Qty: 0 0RF
citalopram [Celexa] 20 mg Tablet
20 mg PO DAILY
vitamin B complex Tablet
1 tab PO DAILY
cholestyramine (with sugar) 4 gram powder in packet
1 ea PO DAILY@1300
fluticasone furoate-vilanterol [Breo Ellipta] 100-25 mcg/dose Blister With Device
2 inh INHALATION R DAILY
lidocaine 4 % Adhesive Patch,Medicated
1 patch topical DAILY Qty: 30 0RF
Rx Instructions:
both hips
acetaminophen [Tylenol Extra Strength] 500 mg Tablet
1,000 mg PO TID Qty: 90 0RF
oxycodone 5 mg tablet
5 mg PO Q4HPRN PRN (Reason: severe pain)
magnesium hydroxide [Milk of Magnesia] 400 mg/5 mL Suspension
2,400 mg PO [id number] PRN (Reason: if no bm by 3rd give on day 4)
bisacodyl [Dulcolax (bisacodyl)] 10 mg Suppository
10 mg ME DAILYPRN PRN (Reason: if no bm aftr mom give on day 5)
Fleet Enema 19-7 gram/118 mL Enema
118 ml ME DAILYPRN PRN (Reason: if no bm aftr dulcolax give on day 6)
cyclobenzaprine 5 mg Tablet
5 mg PO BID
oxycodone [OxyContin] 10 mg Tablet,Oral Only,Ext.Rel.12 Hr
10 mg PO BID
capsaicin-menthol 0.05-2 % Cream
1 applic TOPICAL BID
Discontinued
valsartan-hydrochlorothiazide 80-12.5 mg tablet
1 tab PO DAILY
Discharge Orders:
Discharge Patient (As Directed); Ordered 01/29/25
Ordered By: Ari Jimenez
Discharge Date and Time
Print Language: ARABIC
[2025-01-29] MEDS: QUESTRAN 4 GRAM PO (13:11)
[2025-01-29 15:14] VITALS: BP 153/65
== END 2025-01-29 16:42 | DRG 812 ==
LOC: 4 WEST ACU 21:13
PROVIDERS: Emergency Medicine; ADMITTING PHYSICIAN Hospitalist; ATTENDING PHYSICIAN Internal Medicine; EMERGENCY PHYSICIAN Emergency Medicine; FAMILY PHYSICIAN Internal Medicine Geriatric Medicine; OTHER PHYSICIAN Internal Medicine Hematology & Oncology
PROC: 30233N1 Transfusion of Nonautologous Red Blood Cells into Peripheral Vein, Percutaneous Approach (ICD-10-PCS; 2025-01-27)
DX: D46.9 Myelodysplastic syndrome, unspecified (principal); I50.32 Chronic diastolic (congestive) heart failure; D63.8 Anemia in other chronic diseases classified elsewhere; E87.6 Hypokalemia; T50.996A Underdosing of other drugs, medicaments and biological substances, initial encounter; E78.5 Hyperlipidemia, unspecified; I11.0 Hypertensive heart disease with heart failure; G47.33 Obstructive sleep apnea (adult) (pediatric); I25.10 Atherosclerotic heart disease of native coronary artery without angina pectoris; J45.909 Unspecified asthma, uncomplicated; F32.A Depression, unspecified; I65.29 Occlusion and stenosis of unspecified carotid artery; G62.9 Polyneuropathy, unspecified; K21.9 Gastro-esophageal reflux disease without esophagitis; M48.00 Spinal stenosis, site unspecified; Z79.82 Long term (current) use of aspirin; Z79.51 Long term (current) use of inhaled steroids; Z79.899 Other long term (current) drug therapy; Z91.138 Patient's unintentional underdosing of medication regimen for other reason; Z87.11 Personal history of peptic ulcer disease
CPT/HCPCS: 80048; 80053; 81003; 81015; 83540; 83550; 83735; 85025; 85027; 86850; 86870; 86900; 86901; 86902; 86920; 86922; 87077; 87086; 87186; 93005; 94640; 96374; 97163; 97167; 99285; P9016

== ENCOUNTER → 2025-02-04 12:38 | Outpatient (REF) | payer MEDICARE, OTHER, SELFPAY ==
[2025-02-04 13:20] LABS: Hematocrit 21.2 % (37.0-47.0); Hemoglobin 7.4 g/dL (12.0-16.0); Mean Corp Hgb Conc. 34.9 g/dL (33.0-37.0); Mean Corpuscular Volume 81.9 fL (81.0-99.0); Red Cell Dist. Width 24.6 % (11.5-14.5)
[2025-02-04 14:16] LABS: Nucleated Red Blood Cells % 2.3 %
[2025-02-04 14:17] LABS: Anisocytosis 1+; Hypochromasia 1+; Normal RBC Morphology No; Polychromasia 1+
[2025-02-04 14:18] LABS: Acanthocytes 2+; Ovalocytes 2+; Schistocytes 1+; Target Cells FEW
== END ==
LOC: OLABP 12:38
PROVIDERS: ATTENDING PHYSICIAN Family Medicine
DX: M76.02 Gluteal tendinitis, left hip (principal); I50.32 Chronic diastolic (congestive) heart failure; I25.10 Atherosclerotic heart disease of native coronary artery without angina pectoris; R26.2 Difficulty in walking, not elsewhere classified; M16.12 Unilateral primary osteoarthritis, left hip; J45.909 Unspecified asthma, uncomplicated; D46.9 Myelodysplastic syndrome, unspecified; F32.A Depression, unspecified; I10 Essential (primary) hypertension
CPT/HCPCS: 36415; 85025

== ENCOUNTER → 2025-02-05 12:28 | Outpatient (REF) | payer OTHER, MEDICARE, SELFPAY ==
[2025-02-05 13:24] LABS: Blood Urea Nitrogen 64 mg/dl (7-17); Calcium 9.3 mg/dl (8.4-10.2); Carbon Dioxide 22 mmol/L (22-30); Chloride 107 mmol/L (98-107); Glucose 78 mg/dl (70-99); Magnesium 1.5 mg/dl (1.6-2.3); Potassium 4.8 mmol/L (3.5-5.1); Sodium 139 mmol/L (135-145); eGFR 48.94
== END ==
LOC: OLABP 12:28
PROVIDERS: ATTENDING PHYSICIAN Family Medicine
DX: I10 Essential (primary) hypertension (principal); M76.02 Gluteal tendinitis, left hip; I50.32 Chronic diastolic (congestive) heart failure; I25.10 Atherosclerotic heart disease of native coronary artery without angina pectoris; R26.2 Difficulty in walking, not elsewhere classified; M16.12 Unilateral primary osteoarthritis, left hip; J45.909 Unspecified asthma, uncomplicated; D46.9 Myelodysplastic syndrome, unspecified; F32.A Depression, unspecified
CPT/HCPCS: 36415; 80048; 83735

== ENCOUNTER 2025-02-05 12:31 | Inpatient (IN) | payer MEDICARE, OTHER, SELFPAY ==
[2025-02-05] VITALS (23 sets, daily range): BP systolic 94–165; BP diastolic 44–101; BMI 28.4
--- NOTE | 2025-02-05 09:51 | ED.GENMED ---
History of Present Illness
General
Chief Complaint: Breathing Problem
Source: patient
Exam Limitations: none
Time Seen by Provider: 02/05/25 09:48
Nursing documentation reviewed up to this point in time: agreed with
History of Present Illness
History of Present Illness:
Patient with history MDS, recently hospitalized for blood transfusion, presents to ED from [facility] secondary to increased work of breathing with low oxygen level over the past 2 days. Outpatient chest x-ray yesterday revealed a right sided
pneumonia. Patient was started antibiotics. Denies fever or chills. Denies nausea, vomiting, or diarrhea. Patient does report weakness with decreased appetite. Denies rash. Denies leg pain. Denies back pain. Patient reports right-sided
throat pain, but denies coughing.
Past History
Past History
ED Past Medical History: CAD, GERD, HTN, [place] and Other (Peptic ulcer disease, upper GI bleed November 2014, chronic cough)
ED Past Surgical History: Orthopedic
Social History
Tobacco: Non-smoker
Alcohol: None
Drug: None
Personal:
Living: with family
Employment: Retired
Family History
Family History: Other (Noncontributory)
Review of Systems
Review of Systems
Allergies reviewed?: Yes
All Other Systems: ROS reviewed and negative except as documented in HPI and ROS
Constitutional: Reports no symptoms
EENT: Reports no symptoms
Respiratory: Reports trouble breathing
ABD/GI: Reports no symptoms; Denies vomiting or diarrhea
Musculoskeletal: Reports no symptoms
Skin: Reports no symptoms; Denies rash
Neurological: Reports weakness; Denies headache
Phy Exam
Physical Exam
Physical Exam:
Physical Exam
General: moderate respiratory distress, not acutely ill. afebrile.
Head: nc/at. eomi
Neck: supple. normal range of motion.
Heart: tachycardic
Lungs: moderate respiratory distress. diminished breath sounds bilaterally
Abdomen: normal bowel sounds. not tender.
Neuro: alert and oriented x 3. no focal neurological deficits
Skin: no rash
Psychiatric: well kept. interactive and cooperative
Extremities: LE b/l, nonpiting edema. no calf tenderness.
Scores
Heart Failure Risk
Heart Failure Risk Score: Not Applicable
Sepsis
Sepsis Screening
Sepsis Assessment: Severe Sepsis
Sepsis Screening: Lactate >/=4mmol/L
Sepsis Screen
Sepsis Screen: Severe Sepsis
Date: 02/05/25
Time: 15:43
Course
Orders/Labs/Results
Orders:
Orders
02/05/25 09:18
EKG [Electrocardiogram (*1)] Urgent
Reason for Study: Shortness of Breath
EKG- Treatment ONCE
CXR Port [CR Chest Portable - 1 View] Urgent
Comment:
Reason For Exam: SOB
Reason Study Needs to be Portable: Patient Unstable
02/05/25 09:38
COVID-19 Antigen Urgent
Source: Nasal Swab
INF RAPID [Influenza A+B Rapid Molecular] Urgent
CHIQUITA Source: Nasal Swab
Specimen Description:
02/05/25 10:06
Rectal Temp- Treatment ONCE
02/05/25 10:07
Piperacillin/Tazo 3.375 Gram [Zosyn] 3.375 gram in 50 ml IV NOW
02/05/25 10:08
0.9% Sodium Chloride 500 ml [Nss] 500 ml IV BOLUS
02/05/25 10:15
US Legs, Bilateral [US Periph Venous LOWER Ext Daniel] Urgent
Comment:
Reason For Exam: leg swelling
02/05/25 10:36
BNP [NT-proBNP] Urgent
CMP [Comprehensive Metabolic Panel] Urgent
Complete Blood Count/With Diff Urgent
Lactate Level [Lactic Acid] Urgent
Blood Culture Q30M
CHIQUITA Source: Blood/Venous
Specimen Description:
02/05/25 10:47
Acetaminophen [Tylenol] 650 mg PO NOW STA
02/05/25 10:49
Vancomycin [Vancocin] 1,500 mg 0.9% Sodium Chloride 500 ml [Nss] 500 ml IV NOW
02/05/25 10:56
Procalcitonin Urgent
If negative, will antibiotics be d/c'd or not started: Yes
Does the patient have renal or hepatic impairment?: No
Any recent (w/in 48 hrs) physiologic stress (CPR, rhabdo): No
02/05/25 11:25
0.9% Sodium Chloride 1000 ml [Nss] 1,000 ml IV BOLUS
02/05/25 11:26
0.9% Sodium Chloride 500 ml [Nss] 500 ml IV BOLUS
02/05/25 11:40
RON Polyspecific GEL Urgent
BBK Wristband Number:
Type+Screen Urgent
02/05/25 12:00
Admit/Transfer Patient As Directed
Co-Sign Provider:
Level of Care: Inpatient admission
Assign to:: IMU- Intermediate Care
Physician / Group: radha ko
Diagnosis: sepsis secondary to pneumonia.
Reason for Hospitalization: sepsis secondary to pneumonia.
Expected length of stay greater than two midnights?: Yes
ELOS- Estimated Length of Stay in days: 3
I certify the patient meets the requirements for IP care: Yes
02/05/25 12:02
PRN Pain Medication Management As Directed
May give lesser potent ordered pain med per pt: Yes
preference::
Protocol:: Medication orders for pain may be administered in a
manner that supports deferring to patient preference
when the pt is:
- Requesting an ordered lesser potent pain medication.
Least to most potent pain medications are defined
as: acetaminophen < NSAID < tramadol < opioids
(morphine, oxycodone, hydromorphone).
- Requesting a lesser dose of the same medication IF
ORDERED.
- Requesting a less intrusive route of administration
if both routes are prescribed by the provider (PO <
IV).
02/05/25 12:07
Code Status As Directed
Resuscitation Status: Full Code
02/05/25 12:13
Add On- LAB Routine
Tests Added?: d-dimer
02/05/25 14:38
Urinalysis Reflex To Culture Routine
Date Specimen was Collected: 02/05/25
Time Specimen was Collected: 14:35
Blood Culture Q30M
CHIQUITA Source: Blood/Venous
Specimen Description:
Abnormal Lab Results
02/05/25 02/05/25 02/05/25
10:36 10:56 11:40
WBC 16.6 H 10^3/uL
(4.8-10.8)
RBC 2.79 L 10^6/uL
(4.20-5.40)
Hgb 7.5 L g/dL
(12.0-16.0)
Hct 23.7 L %
(37.0-47.0)
MCHC 31.9 L g/dL
(33.0-37.0)
RDW 24.8 H %
(11.5-14.5)
Absolute Neuts (auto) 13.6 H 10^3/uL
(1.4-6.5)
Absolute Lymphs (auto) 1.0 L 10^3/uL
(1.2-3.4)
Absolute Monos (auto) 1.5 H 10^3/uL
(0.1-0.6)
Absolute Basos (auto) 0.3 H 10^3/uL
(0-0.2)
Neutrophils % 81.6 H %
(42.2-75.2)
Lymphocytes % 7.2 L %
(20.5-51.1)
Chloride 109 H mmol/L
(98-107)
Carbon Dioxide 19 L mmol/L
(22-30)
BUN 61 H mg/dl
(7-17)
Creatinine 1.6 H mg/dL
(0.6-1.0)
Lactic Acid 5.1 H* mmol/L
(0.7-2.0)
Total Bilirubin 1.7 H mg/dl
(0.2-1.3)
AST 47 H U/L
(14-36)
Total Protein 5.6 L g/dl
(6.3-8.2)
Albumin 2.9 L g/dl
(3.5-5.0)
Procalcitonin 7.59 H* ng/ml
(0.0-0.25)
Antibody Screen Positive A
(Negative)
02/05/25 10:36
02/05/25 10:36
Vital Signs
Initial and Last Documented VS:
Initial Vital Signs
Temp Pulse Resp BP Pulse Ox
97.5 F 127 28 165/62 97
02/05/25 09:19 02/05/25 09:19 02/05/25 09:19 02/05/25 09:19 02/05/25 09:19
Last Documented Vital Signs
Temp Pulse Resp BP Pulse Ox
99.2 F 106 25 100/74 97
02/05/25 14:15 02/05/25 14:45 02/05/25 14:45 02/05/25 14:45 02/05/25 14:45
MDM/Problems Addressed
MDM/Problems Addressed:
History, exam, and chest x-ray concerning for sepsis, likely secondary to right-sided pneumonia.
In light of patient's hypoxia, tachycardia, and tachypnea, concern for potential respiratory failure. In addition, mild hypotension noted despite initial IV fluid bolus, along with elevated lactate level, patient may require pressor support. As
such, patient will be admitted to ICU for further evaluation and treatment. Skate Shop Attendant, , notified via [place] text.
Patient started on broad-spectrum IV antibiotics, along with IV fluids. Patient placed on supplemental oxygen, with improvement.
Blood culture pending.
Lower extremity ultrasound ordered, as patient is also at high risk for potential PE, in light of patient's underlying malignancy. If positive, will pursue CT angiogram to evaluate for pulmonary embolism. Admitting hospitalist made aware of
treatment plan.
Critical care statement: A total of 40 minutes of critical care time was provided for this patient. This includes management of unstable vital signs, evaluation of the patient at bedside, reviewing the patient's pertinent medical records, review of
old EKGs and review of pertinent medical records. This time with separate from time utilized to perform the aforementioned documented procedures
*Pulse Oximetry
SaO2: 97
Nasal Cannula flow liters per minute: 6
Patient hypoxic: yes
*EKG
Interpreted by ED Provider?: Yes
EKG Intrepretation Date: 02/05/25
Heart Rate: 129
Rate: tachycardiac
Rhythm: sinus
[place]: normal axis
Interval: normal interval
Ischemia: non-specific ST changes
*Critical Care Note
Total Time (30-74mins, 75-104mins- exclusive of procedures): 40 min
ED Attending Note
-
Portions of this chart may have been created with voice recognition software.� Occasional wrong word or��sound alike� substitutions may have occurred due to the inherent limitations of voice recognition software.
Discharge Plan
Departure
Patient Disposition: Admit
Date of Disposition: 02/05/25
Time of Disposition: 11:29
Admit to: ICU
Presentation/result/management discussed w/ accepting MD/DO: Hospitalist
Discharge Problem:
Sepsis, Pneumonia
Interventions
Interventions:
*Risk Screen - Suicide Last Done: 02/05/25 09:19
*General Assessment Last Done: 02/05/25 09:19
*Neglect/Abuse Screening Last Done: 02/05/25 09:19
*ED- Fall Risk Assessment Last Done: 02/05/25 10:00
*ED COVID-19 Vaccine History Last Done: 02/05/25 09:19
*Nursing Disposition Last Done: 02/05/25 15:38
ED- Cardiac Assessment Last Done: 02/05/25 09:35
ED- Pulmonary Assessment Last Done: 02/05/25 09:35
--- NOTE | 2025-02-05 10:30 | EDRN ---
Unable to obtain 2nd set of blood cultures after multiple attempts. notified. Antibiotics to be given without obtaining 2nd set.
[2025-02-05 10:31] LABS: COVID-19 Antigen Negative (Negative)
[2025-02-05] MEDS: ZOSYN 50 IV ×3 (10:43→23:33)
[2025-02-05] MEDS: NSS 500 IV ×2 (10:44→11:35)
[2025-02-05 11:04] LABS: Hematocrit 23.7 % (37.0-47.0); Hemoglobin 7.5 g/dL (12.0-16.0); Mean Corp Hgb Conc. 31.9 g/dL (33.0-37.0); Mean Corpuscular Volume 85.3 fL (81.0-99.0); Nucleated Red Blood Cells % 2.1 %; Platelet Count 266 10^3/uL (130-400); Red Cell Dist. Width 24.8 % (11.5-14.5)
[2025-02-05 11:11] LABS: ALT (SGPT) 33 U/L (0-35); AST (SGOT) 47 U/L (14-36); Albumin 2.9 g/dl (3.5-5.0); Alkaline Phosphatase 93 U/L (38-126); Blood Urea Nitrogen 61 mg/dl (7-17); Calcium 9.1 mg/dl (8.4-10.2); Carbon Dioxide 19 mmol/L (22-30); Chloride 109 mmol/L (98-107); Glucose 99 mg/dl (70-99); Potassium 4.7 mmol/L (3.5-5.1); Sodium 140 mmol/L (135-145); Total Protein 5.6 g/dl (6.3-8.2); eGFR 31.21
[2025-02-05] MEDS: TYLENOL 650 MG PO (11:28)
[2025-02-05] MEDS: VANCOCIN 530 MG IV (11:46)
[2025-02-05 11:51] LABS: Anisocytosis 2+; Hypochromasia 2+; Microcytosis 1+; Normal RBC Morphology No
[2025-02-05 11:52] LABS: Ovalocytes 1+; Tear Drop Red Blood Cells Slight
[2025-02-05 11:55] LABS: Procalcitonin 7.59 ng/ml (0.0-0.25)
--- NOTE | 2025-02-05 12:14 | HPS.HSE ---
Family Physician
-
Family Physician: Keesha Bates, DO
Chief Complaint
-
Shortness of breath
History of Present Illness
Patient is pleasant 84 years old with history of MDS, anemia, hypertension, COPD who came to the ER today with shortness of breath.
Patient was recently admitted to the hospital and discharged on January 29 for anemia requires blood transfusion.
Patient was having shortness of breath and low oxygen as outpatient, she is currently lives at [facility].
Outpatient chest x-ray yesterday shows right-sided pneumonia, patient started on oral amoxicillin.
In the ER patient found to have fever and leukocytosis, and a repeat chest x-ray showed pneumonia, patient was started on vancomycin and Zosyn.
Blood pressure was low and initial plan was for ICU blood blood pressure improved with IV fluid, patient be admitted to IMU.
Medical History
Past Medical History
Past Medical History: Reports Other
Additional Past Medical History:
Myelodysplastic Syndrome
Coronary Artery Disease / Carotid Stenosis
Chronic HFpEF
Essential Hypertension
Dyslipidemia
Asthma
Obstructive Sleep Apnea
Depression
Nephrolithiasis
GI Bleed / PUD
Degenerative Disc Disease / Spinal Stenosis
Past Surgical History: Reports Other
Additional Past Surgical History:
Ureteral Stent with Lithotripsy
Left Hand/Wrist Surgery
Bilateral Rotator Cuff
Appendectomy
Social History
Tobacco: Non-smoker
Alcohol: Occasional
Family History
Family History: Not pertinent
Allergies / Home Medications
Allergies reflects when Allergies were last updated in Robert Applebaum MD.
Home Medications with original date entered in Robert Applebaum MD
Allergy/Medication List:
Allergies
Allergy/AdvReac Type Severity Reaction Status Date / Time
adhesive Allergy BAND Verified 02/05/25 09:28
AIDS-ITCHING
Home Medications
albuterol sulfate 90 mcg/actuation aerosol inhaler 1 puff inhalation R Q6HPRN PRN shortness of breath 04/17/15
cholecalciferol (vitamin D3) 50 mcg (2,000 unit) tablet 2,000 units PO DAILY Supplement 04/17/15
aspirin 81 mg tablet,delayed release 81 mg PO DAILY ##0 04/22/15
pantoprazole 40 mg tablet,delayed release 40 mg PO DAILY ##30 04/22/15
cholestyramine (with sugar) 4 gram powder for susp in a packet 1 ea PO DAILY@1300 Gastrointestinal Issue 01/16/25
citalopram 20 mg tablet (Celexa) 20 mg PO DAILY depression/anxiety 01/16/25
fluticasone furoate 100 mcg-vilanterol 25 mcg/dose inhalation powder (Breo Ellipta) 2 inh inhalation R DAILY Lung/Breathing Issues 01/16/25
vitamin B complex 1 tab PO DAILY Supplement 01/16/25
acetaminophen 500 mg tablet (Tylenol Extra Strength) 1,000 mg (2 x 500 mg) PO TID #90 tabs 01/23/25
lidocaine 4 % topical patch 1 patch topical DAILY #30 ea 01/23/25
bisacodyl 10 mg rectal suppository (Dulcolax (bisacodyl)) 10 mg CO DAILYPRN PRN if no bm aftr mom give on day 5 01/27/25
capsaicin 0.05 %-menthol 2 % topical cream 1 applic topical TID b/l feet, R shoulder 01/27/25
cyclobenzaprine 5 mg tablet 5 mg PO BID PRN Muscle Spasms 01/27/25
magnesium hydroxide 400 mg/5 mL oral suspension (Milk of Magnesia) 2,400 mg PO [id number] PRN if no bm by 3rd give on day 4 01/27/25
oxycodone 10 mg tablet,crush resistant,extended release 12 hr (OxyContin) 10 mg PO BID Pain 01/27/25
oxycodone 5 mg tablet 5 mg PO Q4HPRN PRN severe pain 01/27/25
sodium phosphates 19 gram-7 gram/118 mL enema (Fleet Enema) 118 ml CO DAILYPRN PRN if no bm aftr dulcolax give on day 6 01/27/25
gabapentin 100 mg capsule 100 mg PO TID 30 days #90 caps 01/29/25
valsartan 80 mg tablet 80 mg PO DAILY 30 days #30 tabs 01/29/25
amoxicillin 500 mg capsule 500 mg PO TID 02/05/25
celecoxib 100 mg capsule (Celebrex) 100 mg PO BID 02/05/25
furosemide 20 mg tablet 20 mg PO DAILY 02/05/25
ipratropium 0.5 mg-albuterol 3 mg (2.5 mg base)/3 mL nebulization soln 3 ml inhalation BID 02/05/25
loperamide 2 mg capsule 2 mg PO Q6H PRN loose stools 02/05/25
Review of Systems
-
A 12 point ROS was completed and negative except as noted: Yes
Constitutional: Reports Fatigue; Denies Fever, Weight Gain, Weight Loss or Sleep Disturbance
EENT: Denies Tearing, Sore Throat, Mouth Pain, Mouth Swelling or Runny Nose
Respiratory: Reports Cough and Trouble Breathing; Denies Hemoptysis
Cardiac: Denies Chest Pain, Diaphoresis, Palpitations or Syncope
Abdomen/GI: Denies Abdominal Pain, Nausea, Vomiting, Diarrhea, Constipated, Bloody Stools or Black Stools
: Denies Dysuria, Frequency, Flank Pain, Incontinence, Difficulty Voiding, Urgency, Bleeding or Dark Urine
Musculoskeletal: Denies Joint Pain, Joint Swelling, Muscle Pain, Muscle Stiffness or Edema
Skin: Denies Itching or Rash
Neurological: Denies Dizzy, Headache, Weakness or Numbness
Endocrine: Denies Polyuria, Polydipsia or Temp Intolerance
Hematologic/Lymphatic: Denies Bleeding, Swollen Glands or Bruising
Psych: Reports Calm; Denies Depression, Anxiety or Panic Disorder
Physical Exam
Vital Signs
Vital Signs
Temp Pulse Resp BP Pulse Ox
102.1 F H 114 30 108/54 97
02/05/25 11:00 02/05/25 11:45 02/05/25 11:45 02/05/25 11:45 02/05/25 11:45
Physical Exam
General: Well Developed, Well Nourished, No Apparent Distress, Comfortable and Good Appetite; No Pain, Chills or Sweats
HEENT: NormoCephalic, Moist mucous membranes, Atraumatic, Good Dentition, PERRLA, Nose Appears Normal and Ears Appear Normal
Respiratory: Wheezes, Rales, Rhonchi and Crackles
Cardiac: S1/S2 and Regular Rhythm
Breast: Deferred by me
GI: Soft, Non Tender, Non Distended and Normal Bowel Sounds
Genito-urinary: Deferred by me
Musculoskeletal: No Clubbing, No Cyanosis and No Edema
Skin: Warm; No Rash, Jaundice, Ulcers, Lesions or Decubitus Ulcers
Neuro: Awake, Alert, Oriented, AO x 3, No Motor Deficits, Nonfocal/grossly intact and Cranial Nerves Intact
Hematologic/Lymphatic: No Lymphadenopathy
Psych: Calm
Laboratory Results
-
02/05/25 10:36
02/05/25 10:36
Laboratory Results
Lactic Acid 5.1 mmol/L (0.7-2.0) H* 02/05/25 10:36
Total Bilirubin 1.7 mg/dl (0.2-1.3) H 02/05/25 10:36
AST 47 U/L (14-36) H 02/05/25 10:36
ALT 33 U/L (0-35) 02/05/25 10:36
Alkaline Phosphatase 93 U/L (38-126) 02/05/25 10:36
Data Reviewed
-
Diagnostic Radiology: Report Reviewed by me
CT Scan: Report Reviewed by me
Medical Tests (Nuc Med, Echo, EKG etc): Report Reviewed by me
Lab Data: Labs Reviewed by me
Old Records: Reviewed
Impression/Plan
-
IMPRESSION:
Patient is pleasant 84 years old with history of MDS, anemia, hypertension, COPD who came to the ER today with shortness of breath.
Patient was recently admitted to the hospital and discharged on January 29 for anemia requires blood transfusion.
Patient was having shortness of breath and low oxygen as outpatient, she is currently lives at SNF.
Outpatient chest x-ray yesterday shows right-sided pneumonia, patient started on oral amoxicillin.
In the ER patient found to have fever and leukocytosis, and a repeat chest x-ray showed pneumonia, patient was started on vancomycin and Zosyn.
Blood pressure was low and initial plan was for ICU blood blood pressure improved with IV fluid, patient be admitted to IMU.
Assessment/plan:
Severe sepsis with acute organ dysfunction, acute renal failure, lactic acidosis.
Patient meets sepsis criteria on admission
Heart rate 117
WBCs 16.6
Respiratory rate 29
Temperature 102.1
Lactic acid 5 point
Source of infection is pneumonia
IV fluid
IV antibiotic in form of vancomycin and Zosyn
Blood culture pending
Urine culture pending
Admit to IMU.
Initially patient was hypotensive but currently improved.
DuoNebs
Lactic acidosis.
Secondary to sepsis.
IV fluid.
Follow-up lactic acid.
Acute kidney injury
IV fluid.
Avoid nephrotoxins.
Hold valsartan, Lasix, Celebrex
Anemia of chronic disease.
History of MDS.
Hemoglobin 7.5
History of COPD
Continue home inhalers
Chronic diastolic CHF.
Most recent echocardiogram in September 2024
Estimated left ventricular ejection fraction is >75%, by visual assessment.
Normal regional wall motion.
Normal right ventricular size and function.
Mild mitral stenosis, mean gradient 3 mmHg.
Aortic sclerosis without stenosis.
Mild to moderate tricuspid regurgitation. Estimated pulmonary artery pressure
of 40-45 mmHg.
Elevated BNP but will hold Lasix for now until kidney function improves
History of hypertension
Blood pressure medications on hold for now
Chronic pain.
Continue home pain medications
CODE STATUS: Full code
DVT prophylaxis: SCDs
Diet: Regular diet
Family communication: Discussed with at bedside
Total time spent on today's encounter was 75 minutes which included time spent in counseling the patient/family regarding diagnosis and treatment plan as listed above, goals of care, and symptom management. Case was discussed with nursing staff,
specialists, and care coordinators/case management. All labs and imaging personally reviewed by me. Remainder the time spent in detailed review of previous records, lab data, imaging, and other medical provider documentation.
--- NOTE | 2025-02-05 14:00 | VATNOTE ---
Midline placement procedure note: Attempted midline placement in pt's R arm, attempted and successfully cannulated the brachial vein twice and the basilic vein once but each time was unable to advance the guidewire into the vein. Due to the small
size of the vessels and their depth, the decision was made to attempt placement in pt's L arm instead. Equipment was moved to the patient's L side maintaining sterility. L arm prepped and the basilic vein was successfully cannulated, however once
again this RN was unable to advance the guidewire through the needle. The basilic vein was cannulated a second time at a proximal location to the original puncture, the wire was successfully advanced into the vessel, and the midline was placed
successfully. Blood return noted at time of insertion and lab work drawn while still sterile as requested by nursing staff.
[2025-02-05] MEDS: DUONEB 3 ML INH ×2 (14:45→22:29)
[2025-02-05 14:57] LABS: Urine Character Cloudy (Clear)
[2025-02-05 15:09] LABS: D-Dimer 3.46 ug/mlFEU (0.00-0.50)
[2025-02-05 15:14] LABS: Urine Urothelial Cell 16-20 /LPF (FEW)
[2025-02-05 15:16] LABS: Urine Red Blood Cell 16-20 /HPF (0-2); Urine White Cell >100 /HPF (0-5)
--- NOTE | 2025-02-05 15:53 | PTCARENOTE ---
Pt from er with multiple skin tears and bruising on arms and legs, on 4l O2, craxckles through out her lungds and wheezing. Pt states she has an advanced directive. Dr Iglesia waldrop
[2025-02-05] MEDS: LASIX 40 MG IV (16:02)
[2025-02-05] MEDS: QUESTRAN 4 GRAM PO (16:05)
[2025-02-05] MEDS: ASPIR LOW (ENTERIC COATED) 81 MG PO (16:05)
--- NOTE | 2025-02-05 16:06 | PHA.VAN.IN ---
Assessment
- Assessment
Renal Function: SCR Appears Elevated from baseline (SCR 1.6 vs ~0.6)
Concomitant Antimicrobials: piperacillin/tazobactam
Plan
- Plan
Initial / Loading Dose: 1500mg - 02/05 11:46
Maintenance Regimen: dosing by level
Monitoring: random 02/06 0600
MRSA Screen: Ordered per protocol
Pharmacokinetics Vancomycin I
- -
Patient Age: 84
Patient Sex: Female
Vancomycin Day #: 1
Indication: Pulmonary/Respiratory
Requesting Provider: Dr. Parekh
Pertinent Antimicrobial Allergies:
no pertinent antibiotic allergies
Height / Weight:
Height 4 ft 11 in
Actual Weight 63.8 kg
Pertinent Past Medical History: MDS
- Vital Signs / Lab Results
Temp Pulse Resp BP Pulse Ox
97.6 F 101 17 116/47 98
02/05/25 15:40 02/05/25 15:32 02/05/25 15:32 02/05/25 15:32 02/05/25 15:32
Lab Results - Hematology
02/05/25
10:36
WBC 16.6 H
Lab Results - Chemistry
02/05/25
10:36
BUN 61 H
Creatinine 1.6 H
Albumin 2.9 L
02/05/25 02/05/25 02/05/25
10:36 14:22 14:38
Lactic Acid 5.1 H* Cancelled 1.4
Lab Results - Urine
02/05/25
14:38
Urine Nitrite (Reflex) Positive A
Leukocyte Esterase Rfl 3+ A
Urine WBC (Reflex) >100 A
Ur Squamous Epith Cells 11-15
Urine Bacteria (Reflex) Many A
Microbiology Results
02/05/25 09:38 Influenza Types A & B (RAIN) - Final
Nasal Swab Negative for Influenza A & B, NAAT
Negative results must be combined with clinical observations
and patient history.
Nucleic Acid Amplification test (NAAT)performed on the
[employer] NOW platform.
[2025-02-05] MEDS: NEURONTIN 100 MG PO (16:08)
[2025-02-05] MEDS: SYMBICORT 160/4.5 MCG INHALER INH (20:10)
[2025-02-05] MEDS: OXYCONTIN (CONTROLLED RELEASE) PO (21:35)
[2025-02-05] MEDS: NEURONTIN PO (21:36)
[2025-02-06] VITALS (17 sets, daily range): BP systolic 92–127; BP diastolic 46–88; BMI 28.4; BMI 28.2
--- NOTE | 2025-02-06 01:11 | PTCARENOTE ---
assumed care of patient from dayshift RN. Pt is drowsy, she is oriented to self and time. Pt knew she was in the hospital, but unable to name which one and didn't know why she is hospitalized. Pt unable to take PO medications at start of shift due
to LOC. Sinus tach on the monitor, hr 100-110s. SpO2 96% on 2L NC. VS and assessment as documented. Hygiene completed. Pt resting in bed with call gann in reach.
[2025-02-06] MEDS: ZOSYN 50 IV ×4 (04:56→21:56)
[2025-02-06] MEDS: TYLENOL 650 MG PO (04:56)
[2025-02-06] MEDS: DUONEB 3 ML INH ×4 (05:28→20:05)
[2025-02-06] MEDS: MORPHINE SULFATE 1 MG IV (05:34)
[2025-02-06] MEDS: LASIX 20 MG IV ×2 (05:35→21:56)
[2025-02-06 07:06] LABS: Blood Urea Nitrogen 69 mg/dl (7-17); Calcium 8.3 mg/dl (8.4-10.2); Carbon Dioxide 20 mmol/L (22-30); Chloride 111 mmol/L (98-107); Estimated Creatinine Clearance 22 ml/min; Glucose 107 mg/dl (70-99); Magnesium 1.5 mg/dl (1.6-2.3); Potassium 4.6 mmol/L (3.5-5.1); Sodium 141 mmol/L (135-145); eGFR 33.73
--- NOTE | 2025-02-06 07:14 | PTCARENOTE ---
Pt with increased work of breathing, SOB, and tachypneic (RR 20-30s). Audible expiratory wheezing, on auscultation crackles through which had worsened compared to the start of the shift. SpO2 94% on 3L NC. FRANTZ Khan notified. STAT IV Lasix and
IV Morphine Rx'd and administered. Wilber RT also made aware and pt received neb tx. Exp wheezing improved and is no longer audible. Pt with good urine output. SpO2 currently 98% on 3L NC.
[2025-02-06 07:30] LABS: Hematocrit 19.1 % (37.0-47.0); Hemoglobin 6.3 g/dL (12.0-16.0); Mean Corp Hgb Conc. 33.0 g/dL (33.0-37.0); Mean Corpuscular Volume 83.4 fL (81.0-99.0); Red Cell Dist. Width 24.6 % (11.5-14.5)
[2025-02-06] MEDS: SYMBICORT 160/4.5 MCG INHALER 2 PUFF INH ×2 (07:31→20:05)
[2025-02-06] MEDS: MAGNESIUM SULFATE 50 IV (08:11)
--- NOTE | 2025-02-06 08:37 | PTCARENOTE ---
On walking rounds pt is AAOx3 98% on 2 l Pt H/H low mag 1.5 Mg yder now infusing. DR Parekh saw pt
[2025-02-06 08:40] LABS: Platelet Count 172 10^3/uL (130-400)
[2025-02-06] MEDS: ASPIR LOW (ENTERIC COATED) 81 MG PO (10:35)
[2025-02-06] MEDS: CELEXA 20 MG PO (10:35)
[2025-02-06] MEDS: NEURONTIN 100 MG PO ×3 (10:36→21:55)
[2025-02-06] MEDS: OXYCONTIN (CONTROLLED RELEASE) 10 MG PO (10:36)
[2025-02-06] MEDS: VITAMIN D3 (cholecalciferol) 50 MCG PO (10:36)
[2025-02-06] MEDS: PROTONIX 40 MG PO (10:36)
--- NOTE | 2025-02-06 11:07 | CM ---
ADM: 01/28/25 to 01/29/25 to [facility]. Initial assessment completed with patient who was admitted from [facility]. Prior to STR patient lived with her in a 1 story home plus basement with 3 steps to enter. Prior to STR she ambulated
with a RW when out of the home. Also has a SPC. When she was discharged to [facility] she reports she was unable to ambulate with a walker. She required a W/CH. She does not drive. No prior in-home services. No VA benefits. No psychiatric
hospitalizations. Does have a HC-POA. PCP is Anton Barton. Pharmacy is [facility] on [address] in . Discharge POC: Return to [facility] for resumption of STR. Referral forwarded.
[2025-02-06] MEDS: LASIX 40 MG IV (11:58)
[2025-02-06] MEDS: ROXICODONE 5 MG PO ×2 (14:06→22:13)
[2025-02-06] MEDS: QUESTRAN PO (14:10)
--- NOTE | 2025-02-06 14:33 | W.PN.HOSP.TC ---
Today's Communication/Plan
-
Continue antibiotics.
Continue Lasix.
Blood transfusion.
ABG pending
Assessment / Plan
Assessment / Plan
Impression:
Patient is pleasant 84 years old with history of MDS, anemia, hypertension, COPD who came to the ER today with shortness of breath.
Patient was recently admitted to the hospital and discharged on January 29 for anemia requires blood transfusion.
Patient was having shortness of breath and low oxygen as outpatient, she is currently lives at [facility].
Outpatient chest x-ray yesterday shows right-sided pneumonia, patient started on oral amoxicillin.
In the ER patient found to have fever and leukocytosis, and a repeat chest x-ray showed pneumonia, patient was started on vancomycin and Zosyn.
Blood pressure was low and initial plan was for ICU blood blood pressure improved with IV fluid, patient be admitted to IMU.
Assessment/plan:
Severe sepsis with acute organ dysfunction, acute renal failure, lactic acidosis.
Patient meets sepsis criteria on admission
Heart rate 117
WBCs 16.6
Respiratory rate 29
Temperature 102.1
Lactic acid 5 point
Source of infection is pneumonia
IV fluid
IV antibiotic in form of vancomycin and Zosyn
Blood culture pending
Urine culture pending
Admit to IMU.
Initially patient was hypotensive but currently improved.
DuoNebs
02/06
MRSA screen negative.
Vancomycin discontinued
Acute hypoxic respiratory failure.
Secondary to pneumonia/CHF.
ABG pending.
Will switch appropriate to ICU
Lactic acidosis.
Patient
Acute kidney injury
Improved
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
Hemoglobin dropped to 6.3.
Status post blood transfusion
History of COPD
Continue home inhalers
Chronic diastolic CHF.
Most recent echocardiogram in September 2024
Estimated left ventricular ejection fraction is >75%, by visual assessment.
Normal regional wall motion.
Normal right ventricular size and function.
Mild mitral stenosis, mean gradient 3 mmHg.
Aortic sclerosis without stenosis.
Mild to moderate tricuspid regurgitation. Estimated pulmonary artery pressure
of 40-45 mmHg.
Elevated BNP
Patient received Lasix IV.
Continue Lasix with blood transfusion
History of hypertension
Blood pressure medications on hold for now
Chronic pain.
Continue home pain medications
CODE STATUS: Full code
DVT prophylaxis: SCDs
Diet: Regular diet
Family communication: Discussed with at bedside
Disposition: Antibiotics, ABG pending
Total time spent on today's encounter was 65 minutes which included time spent in counseling the patient/family regarding diagnosis and treatment plan as listed above, goals of care, and symptom management. Case was discussed with nursing staff,
specialists, and care coordinators/case management. All labs and imaging personally reviewed by me. Remainder the time spent in detailed review of previous records, lab data, imaging, and other medical provider documentation.
Anticipated Discharge: > 48 hours
Subjective/Interval History
-
Date of Service: February 06, 2025
Patient is still confused today, but otherwise leukocytosis improved.
Dropped hemoglobin required blood transfusion.
Objective Data
-
Labs:
Laboratory Results
02/06/25 02/06/25
05:33 13:41
WBC 8.6
Hgb 6.3 L*
Hct 19.1 L*
Plt Count 172 D
HCO3 Pending
Sodium 141
Potassium 4.6
Chloride 111 H
Carbon Dioxide 20 L
BUN 69 H
Creatinine 1.5 H
Glucose 107 H
Calcium 8.3 L
Vital Signs:
Vital Signs
Temp Pulse Resp BP Pulse Ox
98.3 F 119 39 109/46 97
02/06/25 11:37 02/06/25 14:00 02/06/25 14:00 02/06/25 12:00 02/06/25 14:00
I&O
02/05/25 02/06/25 02/07/25
06:59 06:59 06:59
Intake Total 50 / 50 100 / 100
Output Total 300 / 300
Balance -250 / -250 100 / 100
Physical Exam
-
General: Respiratory Distress and Appears in Distress
HEENT: Normocephalic, Atraumatic, Moist Mucous Membranes, No Ptosis, PERRLA and Nose Appears Normal
Respiratory: Wheezes, Rales, Rhonchi, Crackles and Accessory Resp Muscle Use
Cardiac: Regular Rhythm, S1/S2 and Tachycardic
Breast: Deferred by me
GI: Soft, Nontender, Nondistended and Normal Bowel Sounds
Genito-urinary: No Costovertebral Tender
Musculoskeletal: No Clubbing, No Cyanosis and No Edema
Skin: Warm
Neuro: Awake, Alert, Oriented and No Motor Deficits
Psych: Confused
Data Reviewed
-
Diagnostic Radiology: Image personally visualized and interpreted and Report Reviewed by me
CT Scan: Image personally visualized and interpreted and Report Reviewed by me
Ultrasound: Image personally visualized and interpreted and Report Reviewed by me
MRI: Image personally visualized and interpreted and Report Reviewed by me
Medical Tests (Nuc Med, Echo etc): Image personally visualized and interpreted and Report Reviewed by me
Labs: Labs Reviewed by me
Old Records: Reviewed
[2025-02-06 14:48] LABS: B.E. -4.4 mmol/L; HCO3 19.6 mmol/L (21-28); O2 Saturation % 99.1 % (94-98); PCO2 31 mmHg (32-35); PO2 136 mmHg (83-108)
--- NOTE | 2025-02-06 16:40 | PTOTSP ---
Dysphagia Evaluation
Patient presents with signs concerning for oral/pharyngeal dysphagia and possible aspiration with thin liquids. She is at an acute elevated risk for dysphagia given sepsis due to PNA with tachypnea (RR 30-40). Chronic dysphagia risk factors
include COPD, asthma, and GERD. Tolerance for aspiration likely lessened due to comorbidities (MDS) and acute illness.
Recommend:
1. Temporary NPO
2. Medications crushed in puree
3. Hold ARHP until RAJEEV and WOB improve
4. Oral care 3-5x daily
5. Dysphagia tx f/u at the acute care level to determine if/when ARHP appropriate, diet initiation, and/or instrumental swallow testing
--- NOTE | 2025-02-06 18:08 | PTCARENOTE ---
Pt took O2 off POX to 84%. O2 back on POX 100%
[2025-02-06 21:01] LABS: Hematocrit 21.0 % (37.0-47.0); Hemoglobin 7.0 g/dL (12.0-16.0)
[2025-02-06] MEDS: OXYCONTIN (CONTROLLED RELEASE) PO ×2 (21:55→22:04)
[2025-02-07] VITALS (75 sets, daily range): BP systolic 84–146; BP diastolic 36–72; PULSE 5–102; O2SAT 98; BMI 28.4
[2025-02-07] MEDS: LEVOPHED 250 IV (00:37)
--- NOTE | 2025-02-07 01:27 | W.PN.UPDATE ---
Update Note
Progress Note Update
2119 repeat HH 7.0 from 6.3 this morning (received one unit PRBC).
One more unit PRBC ordered with 20mg iv lasix to be given post transfusion.
Blood bank called RN and said due to antibodies PRBC will take approx 6-8 hr to arrive.
0 RN reports pt with increased WOB, tachypnea (RR 20-40), tachycardia (100-120). BP stable 110s/80. Pt drowsy. rectal temp 99.2
On my eval, pt appeared more comfortable. No longer tachypneic. Pt is drowsy (also was given prn oxycodone dose).
Shortly thereafter bp dropped. 90s/40s- low 100s/40s MAP<65. Will add levophed gtt for MAP<65.
[2025-02-07 03:30] LABS: Hematocrit 21.8 % (37.0-47.0); Hemoglobin 7.2 g/dL (12.0-16.0); Mean Corp Hgb Conc. 33.0 g/dL (33.0-37.0); Mean Corpuscular Volume 82.6 fL (81.0-99.0); Platelet Count 206 10^3/uL (130-400); Red Cell Dist. Width 23.0 % (11.5-14.5)
[2025-02-07 03:52] LABS: Blood Urea Nitrogen 76 mg/dl (7-17); Calcium 8.4 mg/dl (8.4-10.2); Carbon Dioxide 23 mmol/L (22-30); Chloride 109 mmol/L (98-107); Estimated Creatinine Clearance 27 ml/min; Glucose 128 mg/dl (70-99); Potassium 4.7 mmol/L (3.5-5.1); Sodium 139 mmol/L (135-145); eGFR 44.08
[2025-02-07] MEDS: ZOSYN 50 IV ×4 (04:08→21:09)
[2025-02-07 04:14] LABS: Magnesium 2.2 mg/dl (1.6-2.3)
[2025-02-07] MEDS: SYMBICORT 160/4.5 MCG INHALER 2 PUFF INH (07:24)
[2025-02-07] MEDS: DUONEB 3 ML INH ×4 (07:24→19:19)
--- NOTE | 2025-02-07 07:55 | PTCARENOTE ---
shift production supervisor note.
At start of shift pt drowsy and only oriented to self and time. NSR on monitor with first degree. SpO2 95% on 4L NC, RR 16-24. Crackles auscultated. VS and assessment at that time as documented.
Hgb at 20:52 was 7. FRANTZ Ashton made aware and 1 unit of blood ordered. Notified by blood bank that a unit would not be available for 6-8 hours due to patients blood type. LACE TEARING SUPERVISOR notified.
Around 23:00 respiratory status changed. Patient with increased work of breathing, retractions, tachypneic (RR 30-40s), diaphoretic and lethargic. Crackles worsened compared to original assessment from 1899. Vitals signs as well as changes in the
assessment at that time were documented (see worklist). SpO2 94% on 4L NC. Rectal temp 99.2 F. Blood pressure became soft SBP 90-110s with MAP in the 50s. FRANTZ Ashton made aware of patients status. Levophed ordered and started, titrated per protocol
(see worklist).
Pt inc of bowel and bladder. Hygiene completed including shampoo cap, CHG wipes, and complete bed bath and linen changes. New PW in place draining anel urine.
Hgb at 0314 7.2 and FRANTZ Ashton made aware. Unit of blood was cancelled.
[2025-02-07] MEDS: ASPIR LOW (ENTERIC COATED) PO (09:12)
[2025-02-07] MEDS: OXYCONTIN (CONTROLLED RELEASE) PO (09:12)
[2025-02-07] MEDS: PROTONIX PO (09:13)
[2025-02-07 09:17] LABS: Hematocrit 21.4 % (37.0-47.0); Hemoglobin 7.1 g/dL (12.0-16.0)
--- NOTE | 2025-02-07 09:25 | PTCARENOTE ---
Assumed care of patient at beginning of this shift from previous RN with levophed infusing at 2mcg/min; able to wean to 1mcg/min then to off. BP currently 122/50 with MAP 71. Resp therapist in to give patient treatment; notified this RN that
patient's oxygen was set at 4l n/c but was out of her nose. He decreased to 2l. Stated he attempted to wean to RA but POx dropped to 90-91%; patient remains on 2L n/c with POx 97%.
Lungs with crackles noted b/l posteriorly; remains tachypneic in the high 20s-30s. Ox3 but very anxious/withdrawn/does not keep eyes open. Note from speech therapist recommended NPO and oral meds to be crushed. Patient due for some meds that cannot
be crushed: enteric coated aspirin, protonix and Oxycontin controlled release. TT sent to Dr Parekh to make him aware; ok to hold meds until seen by speech.
Attempted to give tiny bite of applesauce, unable to assess if patient swallowing correctly as she did wince a bit with the swallow. from made aware via TT and will be up to assess.
[2025-02-07] MEDS: CELEXA 20 MG PO (09:46)
[2025-02-07] MEDS: NEURONTIN 100 MG PO ×3 (09:47→21:09)
--- NOTE | 2025-02-07 09:49 | CON.PUL ---
Consultation
Consultation Request
Date/Time Consultation Requested: 02/07/2025
Date/Time Consultation Performed: 02/07/2025
Requesting Provider: Dr. Parekh
Performing Provider: Dr. Allen Thakur
Reason for Consultation: Pneumonia/respiratory failure
Medical History
-
History of Present Illness:
84-year-old woman with history of MDS, chronic anemia, hypertension, COPD came [facility] complaining of shortness of breath.
Patient recently discharged from the hospital January 29 for anemia requiring blood transfusions.
Patient was found to be mildly hypoxemic.
Chest x-ray in the outpatient setting demonstrated right lower lobe infiltrate-confirmed in the emergency room. Initially in the outpatient and started on amoxicillin.
She was found to be febrile, had leukocytosis-started on Zosyn and vancomycin given recent admission to the hospital.
Initially hypotensive and admitted for severe sepsis. Intended to go to the emergency room but due to improvement on hemodynamics transferred to the intermediate care unit.
This morning she feels slightly better.
Denies hemoptysis.
Denies chills
Denies swallowing problems. Patient reports feeling tired
She has increased work of breathing
Past Medical History
Past Medical History: Other (See assessment and plan)
Social History
Tobacco: Non-smoker
Alcohol: Occasional
Drug: None
Living: Other (group home facility)
Employment: Retired
Family History
Family History: Reviewed & Not Pertinent
Allergies / Home Medications
Allergies
Allergy/AdvReac Type Severity Reaction Status Date / Time
adhesive Allergy BAND Verified 02/05/25 09:28
AIDS-ITCHING
Home Medications
�Medication �Instructions �Recorded �Confirmed �Last Taken �Type
albuterol sulfate 90 mcg/actuation 1 puff inhalation R Q6HPRN PRN 04/17/15 02/05/25 Unknown History
aerosol inhaler shortness of breath
cholecalciferol (vitamin D3) 50 2,000 units PO DAILY Supplement 04/17/15 02/05/25 01/27/25 History
mcg (2,000 unit) tablet
aspirin 81 mg tablet,delayed 81 mg PO DAILY ##0 04/22/15 02/05/25 01/27/25 Rx
release
pantoprazole 40 mg tablet,delayed 40 mg PO DAILY ##30 04/22/15 02/05/25 01/27/25 Rx
release
cholestyramine (with sugar) 4 gram 1 ea PO DAILY@1300 01/16/25 02/05/25 01/27/25 History
powder for susp in a packet Gastrointestinal Issue
citalopram 20 mg tablet (Celexa) 20 mg PO DAILY depression/anxiety 01/16/25 02/05/25 01/27/25 History
fluticasone furoate 100 2 inh inhalation R DAILY 01/16/25 02/05/25 01/27/25 History
mcg-vilanterol 25 mcg/dose Lung/Breathing Issues
inhalation powder (Breo Ellipta)
vitamin B complex 1 tab PO DAILY Supplement 01/16/25 02/05/25 01/27/25 History
acetaminophen 500 mg tablet 1,000 mg (2 x 500 mg) PO TID #90 01/23/25 02/05/25 01/27/25 Rx
(Tylenol Extra Strength) tabs
lidocaine 4 % topical patch 1 patch topical DAILY #30 ea 01/23/25 02/05/25 01/26/25 Rx
bisacodyl 10 mg rectal suppository 10 mg MA DAILYPRN PRN if no bm 01/27/25 02/05/25 Unknown History
(Dulcolax (bisacodyl)) aftr mom give on day 5
capsaicin 0.05 %-menthol 2 % 1 applic topical TID b/l feet, R 01/27/25 02/05/25 01/27/25 History
topical cream shoulder
cyclobenzaprine 5 mg tablet 5 mg PO BID PRN Muscle Spasms 01/27/25 02/05/25 01/27/25 History
magnesium hydroxide 400 mg/5 mL 2,400 mg PO [id number] PRN if no bm 01/27/25 02/05/25 Unknown History
oral suspension (Milk of Magnesia) by 3rd give on day 4
oxycodone 10 mg tablet,crush 10 mg PO BID Pain 01/27/25 02/05/25 Unknown History
resistant,extended release 12 hr
(OxyContin)
oxycodone 5 mg tablet 5 mg PO Q4HPRN PRN severe pain 01/27/25 02/05/25 01/27/25 History
sodium phosphates 19 gram-7 118 ml MA DAILYPRN PRN if no bm 01/27/25 02/05/25 Unknown History
gram/118 mL enema (Fleet Enema) aftr dulcolax give on day 6
gabapentin 100 mg capsule 100 mg PO TID 30 days #90 caps 01/29/25 02/05/25 Unknown Rx
valsartan 80 mg tablet 80 mg PO DAILY 30 days #30 tabs 01/29/25 02/05/25 Unknown Rx
amoxicillin 500 mg capsule 500 mg PO TID Infection 02/05/25 02/05/25 Unknown History
celecoxib 100 mg capsule (Celebrex) 100 mg PO BID Pain 02/05/25 02/05/25 Unknown History
furosemide 20 mg tablet 20 mg PO DAILY Fluid 02/05/25 02/05/25 Unknown History
Retention/Swelling
ipratropium 0.5 mg-albuterol 3 mg 3 ml inhalation BID Lung/Breathing 02/05/25 02/05/25 Unknown History
(2.5 mg base)/3 mL nebulization Issues
soln
loperamide 2 mg capsule 2 mg PO Q6H PRN loose stools 02/05/25 02/05/25 Unknown History
Review of Systems
-
History Source: Patient
All other systems: Negative unless noted
Vitals / Labs / Diagnostic Testing
Vital Signs
Temp Pulse Resp BP Pulse Ox
97.5 F 103 24 122/50 98
02/07/25 07:59 02/07/25 09:15 02/07/25 09:15 02/07/25 09:15 02/07/25 09:15
Lab Data
02/07/25 09:10
02/07/25 03:14
Laboratory Results
02/06/25
14:38
pH 7.41
pCO2 31 L
pO2 136 H
HCO3 19.6 L
O2 Delivery Level Not Reportable
Microbiology
02/05/25 14:38 Urine Urine Culture - Final
Klebsiella pneumoniae
02/05/25 14:38 Blood/Venous Blood Culture - Preliminary
No Growth in 24 hours- Final report to follow
02/05/25 10:36 Blood/Venous Blood Culture - Preliminary
No Growth in 24 hours- Final report to follow
02/05/25 16:57 Nose Nasal Screen MRSA (PCR) - Final
MRSA not detected - performed by PCR methodology.
02/05/25 09:38 Nasal Swab Influenza Types A & B (RAIN) - Final
Negative for Influenza A & B, NAAT
Negative results must be combined with clinical observations
and patient history.
Nucleic Acid Amplification test (NAAT)performed on the
[employer] ID NOW platform.
Diagnostic Testing:
Physical Exam
-
HEENT: Normocephalic
Cardiovascular: S1/S2
Respiratory: Rales and Accessory Resp Muscle Use
GI: Soft and Non Distended
Neurology: Awake
Skin: Warm
General: Respiratory Distress (Conversational)
Assessment
-
84-year-old woman with multiple comorbidities, recently discharged from the hospital, returns to the emergency room complaining of shortness of breath. She was found to be hypotensive, hypoxemic, chest x-ray with large right lower lobe infiltrate
and also UTI. Hypotension responded to IV fluid resuscitation, patient does have increased work of breathing. Currently in the intermediate care unit.
Pulmonary consulted 02/08/2024.
Acute hypoxemic respiratory failure due to pneumonia/increased work of breathing-currently on 2 L 98%.
ABG 02/06/2025: 7.41/31/136
Lower extremity Dopplers 02/05/2025: No evidence for DVT.
Right lower lobe pneumonia on chest x-ray
Possibly [id number] was discharged from the hospital 01/29/2025
Negative influenza/negative COVID/
MRSA screening negative
Severe anemia due to MDS
Acute kidney injury due to sepsis/prerenal insult abnormal UA: Suggestive of infection
Urine with Klebsiella pneumonia.
Conditions present prior admission:
Discharged from the hospital January 29, 2025: Symptomatic anemia status posttransfusion.
Myelodysplastic syndrome
Coronary artery disease/carotid stenosis
COPD.
ABIOLA-on CPAP
Chronic heart failure with preserved ejection fraction
Essential hypertension
Dyslipidemia
Asthma
Obstructive sleep apnea
Depression
Nephrolithiasis
GI bleed/peptic ulcer disease
Spinal stenosis
Ureteral Stent with Lithotripsy
Left Hand/Wrist Surgery
Bilateral Rotator Cuff
Appendectomy
Assessment and plan:
Patient is critically ill: Has increased work of breathing, conversational dyspnea-acute kidney injury, initially hypotensive. Multiple infections, severe anemia.
-
Clinical picture suggest multiple infections including right lower lobe pneumonia-
Right large infiltrate on chest x-ray. Explains increased work of breathing and hypoxemia.
Also UTI with Klebsiella pneumonia.
On top of that severe anemia which also contributes to respiratory symptoms.
-
In regard to pneumonia/UTI: Agree with antibiotics to cover for hospital-acquired infections as she was discharged on 01/29/2025.
Sputum culture
Blood cultures
Follow final urine culture sensitivities-Klebsiella pneumonia.
Will check urine Legionella and Streptococcus pneumonia antigens.
-
Increased work of breathing, accessory muscle use with conversation.
Continue oxygen plantation to maintain pulse ox above 90%.
ABG without hypercapnia.
Doubt additional imaging of the chest will be helpful. Doubt thromboembolic disease as there is alternative explanation for patient's increased work of breathing and hypoxemia.
Start BiPAP as needed 05/09 for increased work of breathing.
Discussed with patient DNR and she would like to be intubated if necessary
I will discussed with family.
-
Continue to monitor hemodynamics
Hold on aggressive diuresis
Hold antihypertensive
Continue midodrine
Not requiring vasopressors at this point
Lactic acid is clear
Renal function has improved.
Follow urinary output.
-
COPD: Not bronchospastic
Transition to nebulized therapy-continue DuoNebs 4 times a day
Hold steroids for now
Hold inhalers for now
Incentive spirometer
Acapella device will be ordered to aid with secretion clearance
-
MDS-severe anemia.
Agree with transfusion
Follow H&H
Transfuse as necessary depending on H&H
-
Heart failure with preserved ejection fraction: Chronic.
Does not appear overloaded
Continue to monitor closely for volume overload
Lasix as necessary after transfusion
-
Aspiration precaution
Head of the bed elevation
-
Obstructive sleep apnea: Has CPAP at home.
Start BiPAP as above for increased work of breathing.
-
DVT prophylaxis-SCDs due to severe anemia
-
High risk intubation.
Goals of care should be discussed-Will recommend DNR status.
Dr. Thakur discussed with over the phone 02/07/2025. For now we will remain full code.
-
Critical care statement: A total of 33 minutes of critical care time was provided for this patient today. This includes management of unstable vital signs, evaluation of the patient at bedside, reviewing the patient's pertinent medical records
including ventilator settings, arterial blood gases, radiographs, microbiology, laboratory evaluations and discussion with primary team, critical care nursing, and respiratory therapy.-
--
Data reviewed:
ECHO 09/25/2024:
Estimated left ventricular ejection fraction is >75%, by visual assessment.
Normal regional wall motion.
Normal right ventricular size and function.
Mild mitral stenosis, mean gradient 3 mmHg.
Aortic sclerosis without stenosis.
Mild to moderate tricuspid regurgitation. Estimated pulmonary artery pressure
of 40-45 mmHg.
--- NOTE | 2025-02-07 11:21 | PTCARENOTE ---
Patient placed on bipap by RT.
[2025-02-07] MEDS: QUESTRAN PO (11:30)
[2025-02-07] MEDS: VITAMIN D3 (cholecalciferol) PO (11:30)
--- NOTE | 2025-02-07 12:11 | W.PN.HOSP.TC ---
Today's Communication/Plan
-
Continue antibiotic.
Continue oxygen
Continue with swallow eval and consider alternative feeding.
Assessment / Plan
Assessment / Plan
Impression:
Patient is pleasant 84 years old with history of MDS, anemia, hypertension, COPD who came to the ER today with shortness of breath.
Patient was recently admitted to the hospital and discharged on January 29 for anemia requires blood transfusion.
Patient was having shortness of breath and low oxygen as outpatient, she is currently lives at SNF.
Outpatient chest x-ray yesterday shows right-sided pneumonia, patient started on oral amoxicillin.
In the ER patient found to have fever and leukocytosis, and a repeat chest x-ray showed pneumonia, patient was started on vancomycin and Zosyn.
Blood pressure was low and initial plan was for ICU blood blood pressure improved with IV fluid, patient be admitted to IMU.
Transiently had low-dose Levophed which discontinued.
Started on vancomycin and Zosyn but MRSA screen negative, continue Zosyn.
Seen by sales ledger clerk.
Continue to fail swallow eval
Assessment/plan:
Severe sepsis with acute organ dysfunction, acute renal failure, lactic acidosis.
Patient meets sepsis criteria on admission
Heart rate 117
WBCs 16.6
Respiratory rate 29
Temperature 102.1
Lactic acid 5 point
Source of infection is pneumonia
IV fluid
IV antibiotic in form of vancomycin and Zosyn
Blood culture pending
Urine culture pending
Admit to IMU.
Initially patient was hypotensive but currently improved.
DuoNebs
02/06
MRSA screen negative.
Vancomycin discontinued
Acute hypoxic respiratory failure.
Secondary to pneumonia/CHF.
ABG came back shows no hypercapnia.
Pulmonology consulted
Lactic acidosis.
Resolved
Acute kidney injury
Improved
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
Hemoglobin dropped to 6.3.
Status post blood transfusion
Continue to monitor
History of COPD
Continue home inhalers
Appreciate pulmonology input
Acute on chronic diastolic CHF.
Most recent echocardiogram in September 2024
Estimated left ventricular ejection fraction is >75%, by visual assessment.
Normal regional wall motion.
Normal right ventricular size and function.
Mild mitral stenosis, mean gradient 3 mmHg.
Aortic sclerosis without stenosis.
Mild to moderate tricuspid regurgitation. Estimated pulmonary artery pressure
of 40-45 mmHg.
Elevated BNP
Patient received Lasix IV.
Continue Lasix with blood transfusion
Dysphagia.
Continue to fail swallow eval.
Meds at puree
History of hypertension
Blood pressure medications on hold for now
Chronic pain.
Continue home pain medications
CODE STATUS: Full code
DVT prophylaxis: SCDs
Diet: NPO
Family communication: Discussed with at bedside
Disposition: Antibiotics, ABG pending
Total time spent on today's encounter was 65 minutes which included time spent in counseling the patient/family regarding diagnosis and treatment plan as listed above, goals of care, and symptom management. Case was discussed with nursing staff,
specialists, and care coordinators/case management. All labs and imaging personally reviewed by me. Remainder the time spent in detailed review of previous records, lab data, imaging, and other medical provider documentation.
Anticipated Discharge: > 48 hours
Subjective/Interval History
-
Date of Service: February 07, 2025
Patient still critically sick, tachypnea at rest.
Continue to fail swallow eval.
Seen by pulmonology today.
Objective Data
-
Labs:
Laboratory Results
02/07/25 02/07/25
03:14 09:10
WBC 13.5 H
Hgb 7.2 L 7.1 L
Hct 21.8 L 21.4 L
Plt Count 206
Sodium 139
Potassium 4.7
Chloride 109 H
Carbon Dioxide 23
BUN 76 H
Creatinine 1.2 H
Glucose 128 H
Calcium 8.4
Vital Signs:
Vital Signs
Temp Pulse Resp BP Pulse Ox
97.3 F 98 26 122/50 97
02/07/25 12:09 02/07/25 10:59 02/07/25 10:59 02/07/25 09:15 02/07/25 10:59
I&O
02/06/25 02/07/25 02/08/25
06:59 06:59 06:59
Intake Total 50 / 50 450 / 450
Output Total 300 / 300 1400 / 1400
Balance -250 / -250 -950 / -950
Physical Exam
-
General: Respiratory Distress and Appears in Distress
HEENT: Normocephalic, Atraumatic, Moist Mucous Membranes, No Ptosis, PERRLA and Nose Appears Normal
Respiratory: Wheezes, Rales, Rhonchi, Crackles and Accessory Resp Muscle Use
Cardiac: Regular Rhythm, S1/S2 and Tachycardic
Breast: Deferred by me
GI: Soft, Nontender, Nondistended and Normal Bowel Sounds
Genito-urinary: No Costovertebral Tender
Musculoskeletal: No Clubbing, No Cyanosis and No Edema
Skin: Warm
Neuro: Awake, Alert, Oriented and No Motor Deficits
Psych: Confused
[2025-02-07] MEDS: PREVACID 30 MG PO (12:14)
--- NOTE | 2025-02-07 12:30 | PTCARENOTE ---
Patient did not tolerate bipap; currently on 2L n/c with POx 97%.
--- NOTE | 2025-02-07 15:32 | PN.CDI ---
CDI
- -
CDI:
Physician Documentation Request
Admit Date: 02/05/25 12:31
Dear Doctor Iglesia,
Patient admitted for sepsis.
02/07 Hospitalist PN: 'Blood pressure was low and initial plan was for ICU blood blood pressure improved with IV fluid, patient be admitted to IMU. Transiently had low-dose Levophed which discontinued...Severe sepsis with acute organ dysfunction,
acute renal failure, lactic acidosis.'
Levophed Titration
02/07/25
00:45 02/07/25
00:50 02/07/25
00:55
CURRENT dosage in mcg/min 2 3 4
Mean Arterial Pressure 56 62 60
Rate in ml/hr 7.5 11.3 15
02/07/25
05:05 02/07/25
05:35 02/07/25
08:30
CURRENT dosage in mcg/min 4 3 1
Mean Arterial Pressure 77 68 78
Rate in ml/hr 15 11.3 3.8
Please clarify which of the following most accurately describes the status of the patient's infection:
Septic Shock
- Severe sepsis associated with circulatory failure, evidenced by hypotension and hypoperfusion
Severe Sepsis only
- Sepsis with associated acute organ dysfunction, such as renal or respiratory failure
- Documentation should indicate the association between the sepsis and the organ dysfunction
Other
Unable to Determine
Use of terms such as suspected, likely, concern for, or probable (associated with a specific diagnosis that is being evaluated, monitored, or treated as if it exists) are acceptable and can be coded in the inpatient setting, when documented at the
time of discharge.
Thank you,
Lilliana Dougherty RN, BSN
CDI Specialist
Available via [facility] text
Please use your independent medical judgment in providing your response.
--- NOTE | 2025-02-07 15:41 | CM ---
Discharge POC: Return to [facility] for resumption of STR.
--- NOTE | 2025-02-07 16:05 | PTCARENOTE ---
Addendum entered by Laly Gilbert RN 02/07/25 16:29:
Blood bank made aware.
Addendum entered by Laly Gilbert RN 02/07/25 16:28:
Confirmed with Dr Parekh via TT that patient does not need PRBC today.
Original Note:
Patient ordered 1 unit PRBCs last night by MANAGED CARE ANALYST, then cancelled. TT sent to Dr Parekh to confirm that patient not getting 2nd unit. She did receive 1 unit yesterday. Await response.
--- NOTE | 2025-02-07 16:30 | PTCARENOTE ---
Addendum entered by Laly Gilbert RN 02/07/25 18:00:
Patient's at bedside; patient remains calm at this time.
Original Note:
Patient became confused, taking off gown, monitor, oxygen, POx sensor and disconnecting purewick. Attempted to reorient patient and put monitor and gown back on, but patient very anxious/paranoid and refusing. This nurse called and spoke with
patient's who stated patient did this yesterday and has also done this at [employer]. He stated he will be leaving his house in 15mins to come see patient. TT sent to Dr Parekh to make him aware as well. Patient did eventually become calm and
allowed gown, monitor, POx sensor, oxygen and purewick be placed back on. POx 95% on 2l n/c; patient currently asleep.
[2025-02-07] MEDS: DESENEX/MITRAZOL/ZEASORB 1 APPLIC TOPICAL (19:56)
[2025-02-08] VITALS (30 sets, daily range): BP systolic 114–155; BP diastolic 58–124; BMI 27.1
--- NOTE | 2025-02-08 02:16 | PTCARENOTE ---
Pt woke up yelling 'help me, help me!' Pt appeared confused on assessment. Pt denied pain or discomfort. CHG bath given and linens changed. VSS. Maintained on Q2hr turns. Pt asleep by the time care finished. Call gann remains within reach. Will
continue to monitor.
[2025-02-08] MEDS: ZOSYN 50 IV ×4 (03:17→21:17)
[2025-02-08 04:00] LABS: Hematocrit 20.8 % (37.0-47.0); Hemoglobin 6.8 g/dL (12.0-16.0); Mean Corp Hgb Conc. 32.7 g/dL (33.0-37.0); Mean Corpuscular Volume 82.5 fL (81.0-99.0); Platelet Count 145 10^3/uL (130-400); Red Cell Dist. Width 22.8 % (11.5-14.5)
[2025-02-08 04:02] LABS: Blood Urea Nitrogen 57 mg/dl (7-17); Calcium 8.7 mg/dl (8.4-10.2); Carbon Dioxide 24 mmol/L (22-30); Chloride 112 mmol/L (98-107); Estimated Creatinine Clearance 36 ml/min; Glucose 112 mg/dl (70-99); Potassium 4.6 mmol/L (3.5-5.1); Sodium 142 mmol/L (135-145); eGFR > 60.00
--- NOTE | 2025-02-08 05:06 | PTCARENOTE ---
Critical Hgb this am at 6.8. Daisha LANDRY TT'd and made aware. Order entered for 1 unit PRBC. Pt made aware of need for infusion. After verification with 2nd RN unit PRBC infusing to left midline. Pre-transfusion axillary temp 100.1. Ice packs applied
to axillary. Daisha LANDRY entered order for Ofirm[facility] if pt needs. Will continue to monitor.
--- NOTE | 2025-02-08 05:18 | PTCARENOTE ---
Pt without s/s of blood reaction after 15 mins. VS as documented. Axillary temp 99.4. Will keep blood infusion at 75ml/hr since pt CHF. Pt currently resting comfortably. Call gann remains within reach. Will continue to monitor.
[2025-02-08] MEDS: DUONEB 3 ML INH ×4 (07:20→20:04)
[2025-02-08] MEDS: DESENEX/MITRAZOL/ZEASORB 1 APPLIC TOPICAL ×2 (08:33→20:40)
[2025-02-08] MEDS: CELEXA PO (08:52)
[2025-02-08] MEDS: LOW STRENGTH ASPIRIN PO (08:53)
[2025-02-08] MEDS: VITAMIN D3 (cholecalciferol) PO (08:53)
[2025-02-08] MEDS: NEURONTIN PO ×3 (08:53→20:41)
[2025-02-08] MEDS: PREVACID PO (08:53)
--- NOTE | 2025-02-08 10:08 | W.PN.PUL.V3 ---
Today's Communication / Plan
-
Antibiotics
BiPAP
Mucus clearing devices
Nebulizers
Assessment
-
84-year-old woman with multiple comorbidities, recently discharged from the hospital, returns to the emergency room complaining of shortness of breath. She was found to be hypotensive, hypoxemic, chest x-ray with large right lower lobe infiltrate
and also UTI. Hypotension responded to IV fluid resuscitation, patient does have increased work of breathing. Currently in the intermediate care unit.
Pulmonary consulted 02/08/2024.
Acute hypoxemic respiratory failure due to pneumonia/increased work of breathing-currently on 2 L 98%.
ABG 02/06/2025: 7.41/31/136
Lower extremity Dopplers 02/05/2025: No evidence for DVT.
Right lower lobe pneumonia on chest x-ray
Possibly [id number] was discharged from the hospital 01/29/2025
Negative influenza/negative COVID/
MRSA screening negative
Severe anemia due to MDS
Acute kidney injury due to sepsis/prerenal insult abnormal UA: Suggestive of infection
Urine with Klebsiella pneumonia.
Conditions present prior admission:
Discharged from the hospital January 29, 2025: Symptomatic anemia status posttransfusion.
Myelodysplastic syndrome
Coronary artery disease/carotid stenosis
COPD.
ABIOLA-on CPAP
Chronic heart failure with preserved ejection fraction
Essential hypertension
Dyslipidemia
Asthma
Obstructive sleep apnea
Depression
Nephrolithiasis
GI bleed/peptic ulcer disease
Spinal stenosis
Ureteral Stent with Lithotripsy
Left Hand/Wrist Surgery
Bilateral Rotator Cuff
Appendectomy
Plan:
Respiratory status still tenuous
Supplemental oxygen as needed-high flow if needed
BiPAP at night and during the daytime as needed-has ASV at home-follows Dr. Bruce
Continue DuoNebs
Add mucolytic's
Incentive spirometry
Add flutter
Add saline nebulizers
Add Mucomyst nebulizer
Consider vest therapy
Observe off steroids
Follow-up occasional chest x-ray
Check cultures
Urine Legionella and streptococcal antigen negative
MRSA negative
Urine culture-Klebsiella pneumonia
Check sputum culture
Empiric antibiotics
Pressors as needed-off norepinephrine
Lactate normalized
Monitor hemoglobin
Transfuse as needed
Has myelodysplasia
History of chronic heart failure
Diuresis if needed
Aspiration precautions
DVT prophylaxis-SCDs due to severe anemia
GI prophylaxis-on PPI
Dr. Thakur discussed with over the phone 02/07/2025. For now we will remain full code.
Data reviewed:
ECHO 09/25/2024:
Estimated left ventricular ejection fraction is >75%, by visual assessment.
Normal regional wall motion.
Normal right ventricular size and function.
Mild mitral stenosis, mean gradient 3 mmHg.
Aortic sclerosis without stenosis.
Mild to moderate tricuspid regurgitation. Estimated pulmonary artery pressure
of 40-45 mmHg.
Subjective Data
-
Date of Service:
Date of Service: February 08, 2025
Chief Complaint: Pulmonary Follow Up and Dyspnea Follow Up
Subjective:
Complains of some shortness of breath, chest congestion, difficulties mobilizing secretions, no chest pain or abdominal pain, tolerated BiPAP for short period yesterday
Review of Systems
General: Other (Per HPI)
Objective Data
Data Reviewed
Vital Signs / I&O:
Vital Signs
Temp Pulse Resp BP Pulse Ox
98.5 F 107 26 129/77 94
02/08/25 08:38 02/08/25 08:18 02/08/25 08:18 02/08/25 08:18 02/08/25 07:23
Intake and Output
02/07/25 02/08/25 02/09/25
06:59 06:59 06:59
Intake Total 450 / 450 350 / 350 250 / 250
Output Total 1400 / 1400 1150 / 1150
Balance -950 / -950 -800 / -800 250 / 250
SaO2: 94
Nasal Cannula flow liters per minute: 2
Physical Exam
General: Respiratory Distress (n) and Comfortable
HEENT: Normocephalic, Anicteric and Moist Mucous Membranes
Cardiovascular: Regular Rhythm and Murmur
Respiratory: Crackles, Rhonchi, Non-Labored Respirations, Accessory Resp Muscle Use (n) and Stridor (n)
GI: Soft, Non Distended and Non Tender
Neurology: Awake, Alert and No Motor Deficits
Skin: Warm, Good Color, Cyanosis (n), Jaundice (n) and Rash (n)
Labs/Micro/Reports
Lab Data
02/08/25 03:16
02/08/25 03:16
Microbiology
02/07/25 15:43 Urine Legionella Urinary Antigen - Final
Negative for Legionella pneumophila Serogroup 1 antigen.
A negative result does not rule out the possiblity of
Legionella infection due to other serogroups or species of
Legionella. Clinical correlation is recommended.
02/07/25 15:43 Urine Streptococcus pneumoniae Antigen (M - Final
Negative for Streptococcus pneumoniae antigen.
A negative result does not exclude infection with
Streptococcus pneumoniae. Clinical correlation is
recommended.
02/05/25 14:38 Blood/Venous Blood Culture - Preliminary
No Growth in 48 hours- Final report to follow
02/05/25 10:36 Blood/Venous Blood Culture - Preliminary
No Growth in 48 hours- Final report to follow
02/05/25 14:38 Urine Urine Culture - Final
Klebsiella pneumoniae
02/05/25 16:57 Nose Nasal Screen MRSA (PCR) - Final
MRSA not detected - performed by PCR methodology.
02/05/25 09:38 Nasal Swab Influenza Types A & B (RAIN) - Final
Negative for Influenza A & B, NAAT
Negative results must be combined with clinical observations
and patient history.
Nucleic Acid Amplification test (NAAT)performed on the
[employer] platform.
[2025-02-08] MEDS: MUCOMYST 10% 4 ML INH (11:12)
[2025-02-08] MEDS: LASIX 20 MG IV (11:50)
[2025-02-08] MEDS: MORPHINE SULFATE 2 MG IV ×3 (12:08→20:45)
--- NOTE | 2025-02-08 13:00 | W.PN.HOSP.TC ---
Today's Communication/Plan
-
Continue antibiotic,
Dobbhoff
Assessment / Plan
Assessment / Plan
Impression:
Patient is pleasant 84 years old with history of MDS, anemia, hypertension, COPD who came to the ER today with shortness of breath.
Patient was recently admitted to the hospital and discharged on January 29 for anemia requires blood transfusion.
Patient was having shortness of breath and low oxygen as outpatient, she is currently lives at [facility].
Outpatient chest x-ray yesterday shows right-sided pneumonia, patient started on oral amoxicillin.
In the ER patient found to have fever and leukocytosis, and a repeat chest x-ray showed pneumonia, patient was started on vancomycin and Zosyn.
Blood pressure was low and initial plan was for ICU blood blood pressure improved with IV fluid, patient be admitted to IMU.
Transiently had low-dose Levophed which discontinued.
Started on vancomycin and Zosyn but MRSA screen negative, continue Zosyn.
Seen by heel molder.
Continue to fail swallow eval
Please Dobhoff
Assessment/plan:
Septic shock, required brief Levophed
Associated with acute organ dysfunction, acute renal failure, lactic acidosis, acute hypoxic respiratory failure.
Sepsis secondary to pneumonia, possible aspiration pneumonia
Patient meets sepsis criteria on admission
Heart rate 117
WBCs 16.6
Respiratory rate 29
Temperature 102.1
Lactic acid 5 point
Source of infection is pneumonia
IV fluid
IV antibiotic in form of vancomycin and Zosyn
Blood culture negative
Urine culture Klebsiella pneumonia
Admitted to IMU.
Blood pressure improved
DuoNebs
02/06
MRSA screen negative.
Vancomycin discontinued
Acute hypoxic respiratory failure.
Secondary to pneumonia/CHF.
ABG came back shows no hypercapnia.
Pulmonology consulted
Lactic acidosis.
Resolved
Acute kidney injury
Improved
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
Hemoglobin dropped to 6.3.
Status post blood transfusion
Continue to monitor
History of COPD
Continue home inhalers
Appreciate pulmonology input
Acute on chronic diastolic CHF.
Most recent echocardiogram in September 2024
Estimated left ventricular ejection fraction is >75%, by visual assessment.
Normal regional wall motion.
Normal right ventricular size and function.
Mild mitral stenosis, mean gradient 3 mmHg.
Aortic sclerosis without stenosis.
Mild to moderate tricuspid regurgitation. Estimated pulmonary artery pressure
of 40-45 mmHg.
Elevated BNP
Patient received Lasix IV.
Continue Lasix
Dysphagia.
Continue to fail swallow eval.
Dobhoff
History of hypertension
Blood pressure medications on hold for now
Chronic pain.
Continue home pain medications
CODE STATUS: Full code
DVT prophylaxis: SCDs
Diet: NPO
Family communication: Discussed with at bedside
Disposition: Continue antibiotic, Dobbhoff
Total time spent on today's encounter was 65 minutes which included time spent in counseling the patient/family regarding diagnosis and treatment plan as listed above, goals of care, and symptom management. Case was discussed with nursing staff,
specialists, and care coordinators/case management. All labs and imaging personally reviewed by me. Remainder the time spent in detailed review of previous records, lab data, imaging, and other medical provider documentation.
Anticipated Discharge: > 48 hours
Subjective/Interval History
-
Date of Service: February 08, 2025
Hemoglobin dropped required blood transfusion.
Patient continued to fail swallow eval, will place Dobhoff.
Objective Data
-
Labs:
Laboratory Results
02/08/25 02/08/25
03:16 19:00
WBC 7.3
Hgb 6.8 L* Pending
Hct 20.8 L* Pending
Plt Count 145 D
Sodium 142
Potassium 4.6
Chloride 112 H
Carbon Dioxide 24
BUN 57 H
Creatinine 0.9
Glucose 112 H
Calcium 8.7
Vital Signs:
Vital Signs
Temp Pulse Resp BP Pulse Ox
98.5 F 120 20 146/77 96
02/08/25 08:38 02/08/25 11:50 02/08/25 11:16 02/08/25 11:50 02/08/25 11:16
I&O
02/07/25 02/08/25 02/09/25
06:59 06:59 06:59
Intake Total 450 / 450 350 / 350 250 / 250
Output Total 1400 / 1400 1150 / 1150
Balance -950 / -950 -800 / -800 250 / 250
Physical Exam
-
General: Respiratory Distress and Appears in Distress
HEENT: Normocephalic, Atraumatic, Moist Mucous Membranes, No Ptosis, PERRLA and Nose Appears Normal
Respiratory: Wheezes, Rales, Rhonchi, Crackles and Accessory Resp Muscle Use
Cardiac: Regular Rhythm, S1/S2 and Tachycardic
Breast: Deferred by me
GI: Soft, Nontender, Nondistended and Normal Bowel Sounds
Genito-urinary: No Costovertebral Tender
Musculoskeletal: No Clubbing, No Cyanosis and No Edema
Skin: Warm
Neuro: Awake, Alert, Oriented and No Motor Deficits
Psych: Confused
[2025-02-08] MEDS: QUESTRAN PO (14:24)
[2025-02-08] MEDS: ROBITUSSIN PO ×3 (14:24→20:41)
--- NOTE | 2025-02-08 14:31 | W.PN.UPDATE ---
Update Note
Progress Note Update
Patient continues to fail swallow eval.
Discussed with patient and at bedside, discussed with PCP.
Plan for Dobhoff.
Dobhoff placed but x-ray shows concern of Dobbhoff at left lower lung.
Dobhoff removed and ordered repeat chest x-ray which shows:
1. Severe right lower lobe pneumonia.
2. Moderate left lower lobe pneumonia.
3. Moderate to severe pulmonary arterial hypertension.
4. Mild cardiomegaly.
5. No convincing radiographic evidence for pneumothorax..
[2025-02-08] MEDS: LIDOCAINE 4% PATCH 1 PATCH TOPICAL (14:34)
[2025-02-08] MEDS: SODIUM CHLORIDE 3% FOR INHALATION 1 VIAL INH ×2 (15:11→20:06)
[2025-02-08 19:37] LABS: Hematocrit 25.9 % (37.0-47.0); Hemoglobin 8.4 g/dL (12.0-16.0)
[2025-02-08] MEDS: MUCOMYST 10% 2 ML INH (20:05)
[2025-02-08] MEDS: REMOVE LIDOCAINE PATCH 1 PATCH REMOVE (20:40)
[2025-02-09] VITALS (21 sets, daily range): BP systolic 85–164; BP diastolic 59–121; BMI 27.9
[2025-02-09] MEDS: MORPHINE SULFATE 2 MG IV ×3 (01:21→12:43)
[2025-02-09] MEDS: FLUSH (NSS) 2 FLUSH IV (01:21)
[2025-02-09] MEDS: ZOSYN 50 IV ×4 (04:08→21:05)
[2025-02-09 05:01] LABS: Blood Urea Nitrogen 54 mg/dl (7-17); Calcium 9.0 mg/dl (8.4-10.2); Carbon Dioxide 23 mmol/L (22-30); Chloride 117 mmol/L (98-107); Estimated Creatinine Clearance 41 ml/min; Glucose 138 mg/dl (70-99); Potassium 4.2 mmol/L (3.5-5.1); Sodium 148 mmol/L (135-145); eGFR > 60.00
[2025-02-09 05:06] LABS: Hematocrit 25.4 % (37.0-47.0); Hemoglobin 8.2 g/dL (12.0-16.0); Mean Corp Hgb Conc. 32.3 g/dL (33.0-37.0); Mean Corpuscular Volume 84.4 fL (81.0-99.0); Platelet Count 121 10^3/uL (130-400); Red Cell Dist. Width 21.8 % (11.5-14.5)
--- NOTE | 2025-02-09 05:11 | PTCARENOTE ---
Pt yelling out intermittently overnight. Admits to pain to right chest and abdomen. Medicated with Morphine as ordered throughout shift with good relief. VSS. Afebrile. ST on CM rate 100's. POX on 4L NC 95-100%. Pt becomes anxious at times with RR's
into the 30's-40's. Pt encouraged with deep breathing exercises. UO for shift 800mls anel urine. No change from previous assessment. Maintained on Q2hr turns. Call gann remains within reach. Oral care provided. Will continue to monitor.
[2025-02-09] MEDS: DUONEB 3 ML INH ×4 (07:19→19:31)
[2025-02-09] MEDS: SODIUM CHLORIDE 3% FOR INHALATION INH (07:19)
[2025-02-09] MEDS: MUCOMYST 10% 2 ML INH (07:19)
[2025-02-09] MEDS: PREVACID PO (07:28)
[2025-02-09] MEDS: CELEXA PO (07:28)
[2025-02-09] MEDS: NEURONTIN PO ×3 (07:28→21:42)
[2025-02-09] MEDS: ROBITUSSIN PO ×4 (07:28→21:42)
[2025-02-09] MEDS: LOW STRENGTH ASPIRIN PO (07:28)
[2025-02-09] MEDS: VITAMIN D3 (cholecalciferol) PO (07:29)
[2025-02-09] MEDS: DESENEX/MITRAZOL/ZEASORB 1 APPLIC TOPICAL ×2 (07:59→21:06)
[2025-02-09] MEDS: LASIX 20 MG IV (08:01)
[2025-02-09] MEDS: LIDOCAINE 4% PATCH 1 PATCH TOPICAL (08:03)
[2025-02-09] MEDS: SODIUM CHLORIDE 3% FOR INHALATION 1 VIAL INH ×2 (11:09→19:31)
--- NOTE | 2025-02-09 11:15 | W.PN.PUL.V3 ---
Today's Communication / Plan
-
Antibiotics
Mucus clearing devices
Mucolytic's
Add steroids
Prognosis extremely guarded
Assessment
-
84-year-old woman with multiple comorbidities, recently discharged from the hospital, returns to the emergency room complaining of shortness of breath. She was found to be hypotensive, hypoxemic, chest x-ray with large right lower lobe infiltrate
and also UTI. Hypotension responded to IV fluid resuscitation, patient does have increased work of breathing. Currently in the intermediate care unit.
Pulmonary consulted 02/08/2024.
Acute hypoxemic respiratory failure due to pneumonia/increased work of breathing-currently on 2 L 98%.
ABG 02/06/2025: 7.41/31/136
Lower extremity Dopplers 02/05/2025: No evidence for DVT.
Right lower lobe pneumonia on chest x-ray
Possibly gdlwqtfe-jgxksrqs-wuvzeop was discharged from the hospital 01/29/2025
Negative influenza/negative COVID/
MRSA screening negative
Severe anemia due to MDS
Acute kidney injury due to sepsis/prerenal insult abnormal UA: Suggestive of infection
Urine with Klebsiella pneumonia.
Conditions present prior admission:
Discharged from the hospital January 29, 2025: Symptomatic anemia status posttransfusion.
Myelodysplastic syndrome
Coronary artery disease/carotid stenosis
COPD.
ABIOLA-on CPAP
Chronic heart failure with preserved ejection fraction
Essential hypertension
Dyslipidemia
Asthma
Obstructive sleep apnea
Depression
Nephrolithiasis
GI bleed/peptic ulcer disease
Spinal stenosis
Ureteral Stent with Lithotripsy
Left Hand/Wrist Surgery
Bilateral Rotator Cuff
Appendectomy
Plan:
Respiratory status remains tenuous
Supplemental oxygen as needed-high flow if needed-currently on 6 L - 96% saturation
BiPAP at night and during the daytime as needed-has ASV at home-follows Dr. Bruce-not tolerating BiPAP here
Continue DuoNebs
Robitussin added
Incentive spirometry
Flutter added
Continue saline nebulizers as well as Mucomyst r
Consider vest therapy
Trial of steroids-Decadron added 02/09/2025
Follow-up occasional chest x-ray
Cultures reviewed
Sputum 02/08/2025-poor specimen
Urine Legionella and streptococcal antigen negative
MRSA negative
Urine culture-Klebsiella pneumonia
Empiric antibiotics
Pressors as needed-off norepinephrine
Lactate normalized
Monitor hemoglobin
Transfuse as needed
Has myelodysplasia
History of chronic heart failure
Diuresis if needed
Aspiration precautions
DVT prophylaxis-SCDs due to severe anemia
GI prophylaxis-on PPI
Goals of care discussion ongoing-Dr. Bruce asked patient 02/09/2025 if she would want intubation if respiratory status further declined-she believes she would want intubation for now
Dr. Thakur discussed with over the phone 02/07/2025. For now we will remain full code.
Data reviewed:
ECHO 09/25/2024:
Estimated left ventricular ejection fraction is >75%, by visual assessment.
Normal regional wall motion.
Normal right ventricular size and function.
Mild mitral stenosis, mean gradient 3 mmHg.
Aortic sclerosis without stenosis.
Mild to moderate tricuspid regurgitation. Estimated pulmonary artery pressure
of 40-45 mmHg.
Subjective Data
-
Date of Service:
Date of Service: February 09, 2025
Chief Complaint: Pulmonary Follow Up and Dyspnea Follow Up
Subjective:
Increase shortness of breath, anxious, chest congestion, difficulties mobilizing secretions, no abdominal pain
Review of Systems
General: Other (Per HPI)
Objective Data
Data Reviewed
Vital Signs / I&O:
Vital Signs
Temp Pulse Resp BP Pulse Ox
97.4 F 122 28 141/82 96
02/09/25 07:11 02/09/25 11:12 02/09/25 11:12 02/09/25 06:03 02/09/25 11:12
Intake and Output
02/08/25 02/09/25 02/10/25
06:59 06:59 06:59
Intake Total 350 / 350 350 / 350
Output Total 1150 / 1150 1400 / 1400
Balance -800 / -800 -1050 / -1050
SaO2: 96
Nasal Cannula flow liters per minute: 6
Physical Exam
General: Respiratory Distress (n) and Comfortable
HEENT: Normocephalic, Anicteric and Moist Mucous Membranes
Cardiovascular: Regular Rhythm and Murmur
Respiratory: Wheeze (n), Crackles (At bases), Rhonchi, Non-Labored Respirations, Accessory Resp Muscle Use (n) and Stridor (n)
GI: Soft, Non Distended and Non Tender
Neurology: Awake, Alert and No Motor Deficits
Skin: Warm, Good Color, Cyanosis (n), Jaundice (n) and Rash (n)
Labs/Micro/Reports
Lab Data
02/09/25 04:07
02/09/25 04:07
Microbiology
02/05/25 10:36 Blood/Venous Blood Culture - Preliminary
No Growth in 4 days- Final report to follow
02/08/25 14:33 Sputum Respiratory Culture - Final
02/08/25 14:33 Sputum Gram Stain - Final
02/05/25 14:38 Blood/Venous Blood Culture - Preliminary
No Growth in 72 hours- Final report to follow
02/07/25 15:43 Urine Legionella Urinary Antigen - Final
Negative for Legionella pneumophila Serogroup 1 antigen.
A negative result does not rule out the possiblity of
Legionella infection due to other serogroups or species of
Legionella. Clinical correlation is recommended.
02/07/25 15:43 Urine Streptococcus pneumoniae Antigen (M - Final
Negative for Streptococcus pneumoniae antigen.
A negative result does not exclude infection with
Streptococcus pneumoniae. Clinical correlation is
recommended.
02/05/25 14:38 Urine Urine Culture - Final
Klebsiella pneumoniae
[2025-02-09] MEDS: QUESTRAN PO (11:55)
[2025-02-09] MEDS: DECADRON 4 MG IV ×2 (12:43→21:05)
--- NOTE | 2025-02-09 12:45 | W.PN.HOSP.TC ---
Today's Communication/Plan
-
Continue antibiotic.
Mucomyst.
Started steroid.
Continue speech eval
Assessment / Plan
Assessment / Plan
Impression:
Patient is pleasant 84 years old with history of MDS, anemia, hypertension, COPD who came to the ER today with shortness of breath.
Patient was recently admitted to the hospital and discharged on January 29 for anemia requires blood transfusion.
Patient was having shortness of breath and low oxygen as outpatient, she is currently lives at SNF.
Outpatient chest x-ray yesterday shows right-sided pneumonia, patient started on oral amoxicillin.
In the ER patient found to have fever and leukocytosis, and a repeat chest x-ray showed pneumonia, patient was started on vancomycin and Zosyn.
Blood pressure was low and initial plan was for ICU blood blood pressure improved with IV fluid, patient be admitted to IMU.
Transiently had low-dose Levophed which discontinued.
Started on vancomycin and Zosyn but MRSA screen negative, continue Zosyn.
Seen by microstrategy architect.
Continue to fail swallow eval
Unsuccessful Dobhoff placement.
Assessment/plan:
Septic shock, required brief Levophed
Associated with acute organ dysfunction, acute renal failure, lactic acidosis, acute hypoxic respiratory failure.
Sepsis secondary to pneumonia, possible aspiration pneumonia
Patient meets sepsis criteria on admission
Heart rate 117
WBCs 16.6
Respiratory rate 29
Temperature 102.1
Lactic acid 5 point
Source of infection is pneumonia
IV fluid
IV antibiotic in form of vancomycin and Zosyn
Blood culture negative
Urine culture Klebsiella pneumonia
Admitted to IMU.
Blood pressure improved
DuoNebs
02/06
MRSA screen negative.
Vancomycin discontinued
Dysphagia.
Continue to fail swallow eval.
Unsuccessful Dobbhoff placement
Continue to try with speech eval
Acute hypoxic respiratory failure.
Secondary to pneumonia/CHF.
ABG came back shows no hypercapnia.
Pulmonology consulted
Added steroid, Mucomyst
Lactic acidosis.
Resolved
Acute kidney injury
Improved
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
Hemoglobin dropped to 6.3.
Status post blood transfusion
Continue to monitor
History of COPD
Continue home inhalers
Appreciate pulmonology input
Acute on chronic diastolic CHF.
Most recent echocardiogram in September 2024
Estimated left ventricular ejection fraction is >75%, by visual assessment.
Normal regional wall motion.
Normal right ventricular size and function.
Mild mitral stenosis, mean gradient 3 mmHg.
Aortic sclerosis without stenosis.
Mild to moderate tricuspid regurgitation. Estimated pulmonary artery pressure
of 40-45 mmHg.
Elevated BNP
Patient received Lasix IV.
Continue Lasix IV since patient is n.p.o.
History of hypertension
Blood pressure medications on hold for now
Chronic pain.
Continue home pain medications
CODE STATUS: Full code
DVT prophylaxis: SCDs
Diet: NPO
Family communication: Discussed with at bedside
Disposition: Continue antibiotic.
Mucomyst.
Started steroid.
Continue speech eval
Total time spent on today's encounter was 65 minutes which included time spent in counseling the patient/family regarding diagnosis and treatment plan as listed above, goals of care, and symptom management. Case was discussed with nursing staff,
specialists, and care coordinators/case management. All labs and imaging personally reviewed by me. Remainder the time spent in detailed review of previous records, lab data, imaging, and other medical provider documentation.
Anticipated Discharge: > 48 hours
Subjective/Interval History
-
Date of Service: February 09, 2025
Patient remains sick on intermediate care unit, tachypneic, tachycardic.
Seen by pulmonology and added to steroid.
Objective Data
-
Labs:
Laboratory Results
02/09/25
04:07
WBC 7.2
Hgb 8.2 L
Hct 25.4 L
Plt Count 121 L
Sodium 148 H
Potassium 4.2
Chloride 117 H
Carbon Dioxide 23
BUN 54 H
Creatinine 0.8
Glucose 138 H
Calcium 9.0
Vital Signs:
Vital Signs
Temp Pulse Resp BP Pulse Ox
97.4 F 122 28 141/82 96
02/09/25 07:11 02/09/25 11:12 02/09/25 11:12 02/09/25 06:03 02/09/25 11:15
I&O
02/08/25 02/09/25 02/10/25
06:59 06:59 06:59
Intake Total 350 / 350 350 / 350
Output Total 1150 / 1150 1400 / 1400
Balance -800 / -800 -1050 / -1050
Physical Exam
-
General: Respiratory Distress and Appears in Distress
HEENT: Normocephalic, Atraumatic, Moist Mucous Membranes, No Ptosis, PERRLA and Nose Appears Normal
Respiratory: Wheezes, Rales, Rhonchi, Crackles and Accessory Resp Muscle Use
Cardiac: Regular Rhythm, S1/S2 and Tachycardic
Breast: Deferred by me
GI: Soft, Nontender, Nondistended and Normal Bowel Sounds
Genito-urinary: No Costovertebral Tender
Musculoskeletal: No Clubbing, No Cyanosis and No Edema
Skin: Warm
Neuro: Awake, Alert, Oriented and No Motor Deficits
Psych: Confused
[2025-02-09] MEDS: MUCOMYST 10% INH (19:32)
[2025-02-09] MEDS: REMOVE LIDOCAINE PATCH 1 PATCH REMOVE (21:06)
[2025-02-10] VITALS (13 sets, daily range): BP systolic 126–156; BP diastolic 49–92; BMI 26.4
--- NOTE | 2025-02-10 03:50 | PTCARENOTE ---
Pt having periods of confusion taking her oxygen off saying ' i don't need it anymore'. Pt spo2 dropping into the low 80's without 3l nc on. Pt reoriented, emotional support and education given. 3L nc spo2 99%. Pt appearing to get sleep over night.
Pt rr going from 30's to 18-20 while sleeping, rr even unlabored.
[2025-02-10] MEDS: ZOSYN 50 IV ×4 (04:22→21:09)
[2025-02-10] MEDS: DECADRON 4 MG IV ×3 (04:22→20:38)
[2025-02-10 04:46] LABS: Hematocrit 24.5 % (37.0-47.0); Hemoglobin 7.7 g/dL (12.0-16.0); Mean Corp Hgb Conc. 31.4 g/dL (33.0-37.0); Mean Corpuscular Volume 85.1 fL (81.0-99.0); Platelet Count 104 10^3/uL (130-400); Red Cell Dist. Width 21.8 % (11.5-14.5)
[2025-02-10 05:20] LABS: Blood Urea Nitrogen 70 mg/dl (7-17); Calcium 8.5 mg/dl (8.4-10.2); Carbon Dioxide 23 mmol/L (22-30); Chloride 120 mmol/L (98-107); Estimated Creatinine Clearance 29 ml/min; Glucose 171 mg/dl (70-99); Potassium 4.5 mmol/L (3.5-5.1); Sodium 151 mmol/L (135-145); eGFR 48.94
--- NOTE | 2025-02-10 05:37 | PTCARENOTE ---
Pt bathed with CHG and wound care completed. Wound found on right middle digit first knuckle. Knuckle swollen with white and purple areas hard on palpation. Night DRAINAGE ENGINEER made aware. Wound care orders placed, uric acid lab added.
--- NOTE | 2025-02-10 05:59 | W.PN.UPDATE ---
Update Note
Progress Note Update
RN reports new area on 1st joint of right middle finger that is swollen, erythematous with 2 bumps with right one having white spots.
Will check uric acid, get hand xray, and consult would care. PT noted to bruise very easily -possible hematoma? No known injury. Was not noted in assessments before- but doesn't look like it could have occurred overnight either.
--- NOTE | 2025-02-10 07:13 | PTCARENOTE ---
late entry for 02/09 1800. day shift note. see nursing assessment. pt very anxious this am. tachypnic and tachycardic into 120s. medicated with prn morphine for lower ribcage discomfort. pt requested to sit oob in chair and was assisted x 2. oob for
several hours with bed alarm in place d/t confusion. iv steroids started as ordered. pt kept npo as directed. mouth care provided. one time dose of haldol ordered d/t pts confusion and severe anxiety. pts then in to see pt and pt calmed down
and haldol was not given. pt noted to have large lump on upper right middle finger joint near fingernail which is swollen and purple with what appears to be white crystals. examined by hospitalist.
[2025-02-10] MEDS: DUONEB 3 ML INH ×4 (07:24→20:15)
[2025-02-10] MEDS: SODIUM CHLORIDE 3% FOR INHALATION 1 VIAL INH ×3 (07:24→20:15)
[2025-02-10] MEDS: MUCOMYST 10% 2 ML INH (07:25)
[2025-02-10] MEDS: LOW STRENGTH ASPIRIN PO (07:33)
[2025-02-10] MEDS: NEURONTIN PO ×2 (07:33→17:20)
[2025-02-10] MEDS: PREVACID PO (07:33)
[2025-02-10] MEDS: CELEXA PO (07:33)
[2025-02-10] MEDS: ROBITUSSIN PO ×4 (07:34→21:26)
[2025-02-10] MEDS: VITAMIN D3 (cholecalciferol) PO (07:34)
[2025-02-10] MEDS: DESENEX/MITRAZOL/ZEASORB 1 APPLIC TOPICAL ×2 (07:34→20:37)
[2025-02-10 07:35] LABS: Uric Acid 11.8 mg/dl (2.5-6.2)
[2025-02-10] MEDS: LIDOCAINE 4% PATCH 1 PATCH TOPICAL (07:45)
--- NOTE | 2025-02-10 08:41 | W.PN.HOSP.TC ---
Today's Communication/Plan
-
see bold
Assessment / Plan
Assessment / Plan
HPI:
Patient is pleasant 84 years old with history of MDS, anemia, hypertension, COPD who came to the ER today with shortness of breath.
Patient was recently admitted to the hospital and discharged on January 29 for anemia requires blood transfusion.
Patient was having shortness of breath and low oxygen as outpatient, she is currently lives at SNF.
Outpatient chest x-ray yesterday shows right-sided pneumonia, patient started on oral amoxicillin.
Assessment/plan:
Septic shock, required brief Levophed
Associated with acute organ dysfunction, acute renal failure, lactic acidosis, acute hypoxic respiratory failure.
Sepsis secondary to pneumonia, possible aspiration pneumonia
COVID/flu/urine Legionella/urine strep antigens all negative
Blood cultures negative, urine cultures growing Klebsiella
MRSA negative, vancomycin discontinued
Continue IV Zosyn
Dysphagia.
Continue to fail swallow eval.
Unsuccessful Dobbhoff placement by Dr. Parekh
Patient more awake and alert on 02/10, asked speech to come back and reevaluate
Acute hypoxic respiratory failure.
Secondary to pneumonia/CHF. ABG came back shows no hypercapnia.
Appreciate pulmonology input, started on steroids 02/09, flutter started
Continue BiPAP at bedtime and during the day as needed -not tolerating BiPAP.
Mucomyst changed to hypertonic saline, continue bronchodilators, IS
Currently requiring 2 L of oxygen, wean as tolerated
Follow-up chest x-ray ordered for today
Hypernatremia
Stop IV Lasix, give D5W
Lactic acidosis.
Resolved
Acute kidney injury
Improved
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
Status post 1 unit packed red blood cells on 02/08 for hemoglobin 6.8
Hemoglobin improved, continue to monitor and transfuse for hemoglobin less than 7.0
History of COPD
Continue home inhalers
Appreciate pulmonology input
Acute on chronic diastolic CHF.
Most recent echocardiogram in September 2024
Estimated left ventricular ejection fraction is >75%, by visual assessment.
Normal regional wall motion.
Normal right ventricular size and function.
Mild mitral stenosis, mean gradient 3 mmHg.
Aortic sclerosis without stenosis.
Mild to moderate tricuspid regurgitation. Estimated pulmonary artery pressure
of 40-45 mmHg.
Elevated BNP
Discontinue IV Lasix due to sodium of 151
History of hypertension
Blood pressure medications on hold for now
Chronic pain.
Continue home pain medications
CODE STATUS: Full code
DVT prophylaxis: SCDs
Diet: NPO
Updated 02/10
Total time spent to see the patient on the floor, examine the patient, review data and lab results, discuss treatment plan with patient, nursing staff around 53 minutes.
Physical Exam
General: Appears chronically ill, no acute distress
HEENT: Normocephalic, Atraumatic, EOMI, MMM
Respiratory: Bibasilar crackles
Cardiac: Normal S1/S2, Regular Rate and Rhythm
GI: Soft, Nontender, Nondistended, Normal Bowel Sounds
Extremities: No Clubbing, Cyanosis
Neuro: Slow to respond
Psych: Calm, Cooperative
Derm: No Visible lesions
Anticipated Discharge: > 48 hours
Subjective/Interval History
-
Date of Service: February 10, 2025
Patient was lethargic this morning. She became more alert and awake. Complains of shortness of breath. No fever, no vomiting.
Objective Data
-
Labs:
Laboratory Results
02/10/25
04:29
WBC 3.4 L
Hgb 7.7 L
Hct 24.5 L
Plt Count 104 L
Sodium 151 H
Potassium 4.5
Chloride 120 H
Carbon Dioxide 23
BUN 70 H
Creatinine 1.1 H
Glucose 171 H
Calcium 8.5
Vital Signs:
Vital Signs
Temp Pulse Resp BP Pulse Ox
96.5 F L 86 18 131/49 100
02/10/25 07:34 02/10/25 07:30 02/10/25 07:30 02/10/25 06:00 02/10/25 07:30
I&O
02/09/25 02/10/25 02/11/25
06:59 06:59 06:59
Intake Total 350 / 350
Output Total 1400 / 1400 600 / 600
Balance -1050 / -1050 -600 / -600
[2025-02-10] MEDS: LASIX IV (09:05)
--- NOTE | 2025-02-10 10:26 | WOUNDNOTE ---
R LOWER ANTERIOR ARM
--- NOTE | 2025-02-10 10:26 | WOUNDNOTE ---
R 3RD FINGER
--- NOTE | 2025-02-10 10:32 | WOUNDNOTE ---
[facility] RN note: Patient admitted with Sepsis and pneumonia.
See H&P for complete history.
PMH: ED Past Medical History: CAD, GERD, HTN, AL and Other (Peptic ulcer disease, upper GI bleed November 2014, chronic cough)
ED Past Surgical History: Orthopedic
Wound Location and type/assessment: Patient admitted with: multiple skin tears on L leg, arms and chest. Scattered bruising on body. R middle finger with what appears to be gout. knuckle of that finger with swollen bumps, red mixed with white and
painful reports patient. No drainage from finger at the moment but suspect will start to drain white gout drainage. Patient turned with assist of nurse Marisa, heels intact, sacrum intact. Buttocks with thin line of red linear schulte, sacral silicone
foam in use.
Appetite: NPO
Pressure redistribution devices in place: On air mattress with air chair cushion on pillow under calves.
Plan: Vaseline gauze and silicone foam dressings on arms, L lateral leg skin tear scabbed, foam unchanged. small chest foam applied today by nurse, no strike through drainage. R third finger applied Vaseline gauze, 2x2 and silicone tape. Recommend
change dressings q 2-3 days and prn drainage. Notified Dr. Shabazz of suspected gout to finger.
Will confirm orders with hospitalist and updated nurse.
Updated care plan and will follow as needed.
Note to case management of equipment requested for discharge:
Recommend follow up at wound care center upon discharge.
[2025-02-10] MEDS: D5W 1000 IV (11:03)
[2025-02-10] MEDS: QUESTRAN PO (12:18)
--- NOTE | 2025-02-10 14:07 | CM ---
patient chart reviewed
referral in [facility] for [facility]
no preauth
PLAN: Return to [facility] for resumption of STR when stable
--- NOTE | 2025-02-10 14:07 | W.PN.PUL3 ---
Today's Communication / Plan
-
- Continue hypertonic saline, discontinue Mucomyst
- Continue IV antibiotics and steroids
- Wean oxygen as tolerated
- Respiratory status continues to be marginal
Assessment
-
84-year-old woman with multiple comorbidities, recently discharged from the hospital, returns to the emergency room complaining of shortness of breath. She was found to be hypotensive, hypoxemic, chest x-ray with large right lower lobe infiltrate
and also UTI. Hypotension responded to IV fluid resuscitation, patient does have increased work of breathing. Currently in the intermediate care unit.
Pulmonary consulted 02/08/2024.
Acute hypoxemic respiratory failure due to pneumonia/increased work of breathing-currently on 2 L 98%.
ABG 02/06/2025: 7.41/31/136
Lower extremity Dopplers 02/05/2025: No evidence for DVT.
Right lower lobe pneumonia on chest x-ray
Possibly fjejsunl-sicdrufo-phenuzu was discharged from the hospital 01/29/2025
Negative influenza/negative COVID/
MRSA screening negative
Severe anemia due to MDS
Acute kidney injury due to sepsis/prerenal insult abnormal UA: Suggestive of infection
Urine with Klebsiella pneumonia.
Conditions present prior admission:
Discharged from the hospital January 29, 2025: Symptomatic anemia status posttransfusion.
Myelodysplastic syndrome
Coronary artery disease/carotid stenosis
COPD.
ABIOLA-on CPAP
Chronic heart failure with preserved ejection fraction
Essential hypertension
Dyslipidemia
Asthma
Obstructive sleep apnea
Depression
Nephrolithiasis
GI bleed/peptic ulcer disease
Spinal stenosis
Ureteral Stent with Lithotripsy
Left Hand/Wrist Surgery
Bilateral Rotator Cuff
Appendectomy
Plan:
Respiratory status remains tenuous, O2 requirement down to 2 ltr now.
Supplemental oxygen as needed
BiPAP at night and during the daytime as needed-has ASV at home-follows Dr. Bruce-not tolerating BiPAP here
Continue DuoNebs and 3% ssaline. D/c Mucomyst
Robitussin
Incentive spirometry
Flutter added
Trial of steroids-Decadron added 02/09/2025
Follow-up CXR today
Cultures reviewed
Sputum 02/08/2025-poor specimen
Urine Legionella and streptococcal antigen negative
MRSA negative
Urine culture-Klebsiella pneumonia
Empiric antibiotics
Monitor hemoglobin
Transfuse as needed
Has myelodysplasia
History of chronic heart failure
Diuresis if needed
Aspiration precautions
DVT prophylaxis-SCDs due to severe anemia
GI prophylaxis-on PPI
Updated patient's spouse at bedside.
Goals of care discussion ongoing-Dr. Bruce asked patient 02/09/2025 if she would want intubation if respiratory status further declined-she believes she would want intubation for now
Dr. Thakur discussed with over the phone 02/07/2025. For now we will remain full code.
Data reviewed:
ECHO 09/25/2024:
Estimated left ventricular ejection fraction is >75%, by visual assessment.
Normal regional wall motion.
Normal right ventricular size and function.
Mild mitral stenosis, mean gradient 3 mmHg.
Aortic sclerosis without stenosis.
Mild to moderate tricuspid regurgitation. Estimated pulmonary artery pressure
of 40-45 mmHg.
Subjective Data
-
Date of Service:
Date of Service: February 10, 2025
Chief Complaint: Pulmonary Follow Up and Dyspnea Follow Up
Subjective:
Patient comfortably lying in bed in no acute distress, currently down to 2 L supplemental oxygen.
Review of Systems
Genitourinary: Other (No new symptoms reported. Dyspnea reportedly unchanged per patient)
Objective Data
Data Reviewed
Vital Signs / I&O / Oxygen:
Vital Signs
Temp Pulse Resp BP Pulse Ox
97.6 F 95 16 146/83 97
02/10/25 12:16 02/10/25 12:00 02/10/25 12:00 02/10/25 12:00 02/10/25 12:00
Intake and Output
02/09/25 02/10/25 02/11/25
06:59 06:59 06:59
Intake Total 350 / 350
Output Total 1400 / 1400 600 / 600
Balance -1050 / -1050 -600 / -600
SaO2 97
Nasal Cannula flow liters per 2
minute
Physical Exam
General: Respiratory Distress (Appeared to get mildly dyspneic while talking) and Comfortable
HEENT: Normocephalic, Anicteric and Moist Mucous Membranes
Cardiovascular: Regular Rhythm and Murmur
Respiratory: Wheeze (n), Crackles (At bases), Rhonchi, Non-Labored Respirations, Accessory Resp Muscle Use (n) and Stridor (n)
GI: Soft, Non Distended and Non Tender
Neurology: Awake, Alert and No Motor Deficits
Skin: Warm, Good Color, Cyanosis (n), Jaundice (n) and Rash (n)
Labs/Micro/Reports
Lab Data
02/10/25 04:29
02/10/25 04:29
Microbiology
02/05/25 10:36 Blood/Venous Blood Culture - Final
No Growth - Final Report
02/05/25 14:38 Blood/Venous Blood Culture - Preliminary
No Growth in 4 days- Final report to follow
02/08/25 14:33 Sputum Respiratory Culture - Final
02/08/25 14:33 Sputum Gram Stain - Final
02/07/25 15:43 Urine Legionella Urinary Antigen - Final
Negative for Legionella pneumophila Serogroup 1 antigen.
A negative result does not rule out the possiblity of
Legionella infection due to other serogroups or species of
Legionella. Clinical correlation is recommended.
02/07/25 15:43 Urine Streptococcus pneumoniae Antigen (M - Final
Negative for Streptococcus pneumoniae antigen.
A negative result does not exclude infection with
Streptococcus pneumoniae. Clinical correlation is
recommended.
--- NOTE | 2025-02-10 15:17 | PTCARENOTE ---
pt c/o chest discomfort that feels heavy. states that she needs to eat and thats why chest hurts. ekg done per protocol. vitals stable and sat 98 on 2 liters.hospitalist notified.
--- NOTE | 2025-02-10 17:33 | PTCARENOTE ---
pts upset that pt does not have diet ordered a she has not eaten for multiple days discussed aspiration risk s with . puree diet ordered per physician and ok given to attempt feeding. aware that npo status will be resumed if
pt hasincreased coughing or signs of aspiration.
--- NOTE | 2025-02-10 19:24 | PTCARENOTE ---
pt recieved puree dinner. fed patient a few spoonfuls of pudding. no apparent signs of aspiration. pt did not want to eat any further dinner. ice chips given per hydration protocol.
[2025-02-10] MEDS: REMOVE LIDOCAINE PATCH 1 PATCH REMOVE (20:38)
[2025-02-10] MEDS: MORPHINE SULFATE 2 MG IV (21:03)
[2025-02-10] MEDS: NEURONTIN 100 MG PO (21:09)
--- NOTE | 2025-02-10 21:39 | PTCARENOTE ---
Addendum entered by Madelin Hidalgo RN 02/10/25 21:51:
Pt continues to calm to baseline. Respirations even un labored RR 18-22 spo2 100% 2L. Pt has no complaints at this time. Call gann within reach. bed in lowest position, alarm on
Original Note:
Pt becoming more anxious and having complaints of pain in finger and 'breathing'. Respiration in the 40's, spo2 98% on 2L. Emotional support given, pain medication given. RN staying in room for around 45 minutes giving emotional support and care, Pt
responding well. Respiration now 26-28 and continue to come back to baseline. spo2 remains 98% on 2L.
--- NOTE | 2025-02-10 21:56 | RESPNOTE ---
PT refused the BIPAP for HS use, will try again tomorrow.
[2025-02-11] VITALS (16 sets, daily range): BP systolic 143–166; BP diastolic 73–109; PULSE 84–85; O2SAT 99; BMI 26.1
[2025-02-11] MEDS: DECADRON 4 MG IV (04:10)
[2025-02-11] MEDS: ZOSYN 50 IV ×2 (04:10→09:00)
--- NOTE | 2025-02-11 05:05 | PTCARENOTE ---
Pt appearing to get rest over night. Respirations even unlabored. spo2 100% on 2L. Morning labs obtained. Pt continued to bruise easily, scattered ecchymosis through out.
[2025-02-11 05:19] LABS: Blood Urea Nitrogen 75 mg/dl (7-17); Calcium 8.8 mg/dl (8.4-10.2); Carbon Dioxide 25 mmol/L (22-30); Chloride 118 mmol/L (98-107); Estimated Creatinine Clearance 35 ml/min; Glucose 204 mg/dl (70-99); Magnesium 2.3 mg/dl (1.6-2.3); Potassium 4.6 mmol/L (3.5-5.1); Sodium 149 mmol/L (135-145); eGFR > 60.00
[2025-02-11 05:22] LABS: Hematocrit 25.7 % (37.0-47.0); Hemoglobin 8.0 g/dL (12.0-16.0); Mean Corp Hgb Conc. 31.1 g/dL (33.0-37.0); Mean Corpuscular Volume 84.5 fL (81.0-99.0); Platelet Count 114 10^3/uL (130-400); Red Cell Dist. Width 21.6 % (11.5-14.5)
[2025-02-11] MEDS: DUONEB 3 ML INH ×4 (07:22→19:20)
[2025-02-11] MEDS: SODIUM CHLORIDE 3% FOR INHALATION 1 VIAL INH ×3 (07:22→19:20)
[2025-02-11 08:56] LABS: Nucleated Red Blood Cells % 1.8 %
[2025-02-11] MEDS: LOW STRENGTH ASPIRIN 81 MG PO (08:56)
[2025-02-11] MEDS: ROBITUSSIN PO ×5 (08:56→23:08)
[2025-02-11] MEDS: NEURONTIN 100 MG PO ×3 (08:56→23:05)
[2025-02-11] MEDS: VITAMIN D3 (cholecalciferol) 50 MCG PO (08:56)
[2025-02-11] MEDS: CELEXA 20 MG PO (08:57)
[2025-02-11] MEDS: LIDOCAINE 4% PATCH TOPICAL (08:57)
[2025-02-11] MEDS: DESENEX/MITRAZOL/ZEASORB 1 APPLIC TOPICAL ×2 (08:57→23:04)
[2025-02-11] MEDS: PREVACID PO (09:07)
[2025-02-11 10:37] LABS: Glycohemoglobin (HgbA1c) 6.4 % (4.0-5.6)
[2025-02-11] MEDS: SODIUM CHLORIDE 1009.625 MEQ IV (11:02)
--- NOTE | 2025-02-11 11:39 | W.PN.PUL3 ---
Today's Communication / Plan
-
- DC Zosyn, start Unasyn IV
- DC Decadron, initiate methylprednisolone 40 mg daily for 5 days
- Follow-up chest x-ray in a.m
- Resume DVT prophylaxis with subcu heparin
- Aspiration precautions
Assessment
-
84-year-old woman with multiple comorbidities, recently discharged from the hospital, returns to the emergency room complaining of shortness of breath. She was found to be hypotensive, hypoxemic, chest x-ray with large right lower lobe infiltrate
and also UTI. Hypotension responded to IV fluid resuscitation, patient does have increased work of breathing. Currently in the intermediate care unit.
Pulmonary consulted 02/08/2024.
Conditions present prior admission:
Discharged from the hospital January 29, 2025: Symptomatic anemia status posttransfusion.
Myelodysplastic syndrome
Coronary artery disease/carotid stenosis
COPD.
ABIOLA-on CPAP
Chronic heart failure with preserved ejection fraction
Essential hypertension
Dyslipidemia
Asthma
Obstructive sleep apnea
Depression
Nephrolithiasis
GI bleed/peptic ulcer disease
Spinal stenosis
Ureteral Stent with Lithotripsy
Left Hand/Wrist Surgery
Bilateral Rotator Cuff
Appendectomy
Assessment and plan:
#1. Acute hypoxemic respiratory failure due to pneumonia, suspect aspiration pneumonia
-Blood cultures, sputum cultures, MRSA screen negative so far. Legionella, streptococcal antigen, influenza AMB screen negative
-Discontinue Zosyn, initiate Unasyn to cover oral dulce
-Continue steroid considering severity of pneumonia, switch to Solu-Medrol 40 mg daily for 5 doses
-Resume oxygen supplementation, patient currently saturating 89 to 90% on room air
-Respiratory rate still high with intermittent increased work of breathing, overall prognosis continues to be guarded as patient continues to fail swallow evaluation
-Continue airway clearance with hypertonic saline and DuoNeb 3 times daily
-Patient not tolerating positive pressure ventilation. Uses ASV at home.
-Incentive spirometry and flutter valve as tolerated
Other medical diagnoses:
-Severe anemia due to MDS
-Acute kidney injury due to sepsis, improving
-Urine cultures with Klebsiella pneumonia.
DVT prophylaxis-SCDs due to severe anemia. Resume subcu heparin
GI prophylaxis-on PPI
Goals of care discussion ongoing-Dr. Bruce asked patient 02/09/2025 if she would want intubation if respiratory status further declined-she believes she would want intubation for now
Dr. Thakur discussed with over the phone 02/07/2025. For now we will remain full code.
Total time spent on this consultation/encounter ___42_ minutes which includes review of history, physical exam, medications, laboratory data, personal review of imaging, extensive review of outpatient records, discussion with care team and
respiratory therapy.
Data reviewed:
ECHO 09/25/2024:
Estimated left ventricular ejection fraction is >75%, by visual assessment.
Normal regional wall motion.
Normal right ventricular size and function.
Mild mitral stenosis, mean gradient 3 mmHg.
Aortic sclerosis without stenosis.
Mild to moderate tricuspid regurgitation. Estimated pulmonary artery pressure
of 40-45 mmHg.
Subjective Data
-
Date of Service:
Date of Service: February 11, 2025
Chief Complaint: Pulmonary Follow Up and Dyspnea Follow Up
Subjective:
Patient comfortably lying in bed in no acute distress.
Review of Systems
Genitourinary: Other (No new respiratory symptoms reported)
Objective Data
Data Reviewed
Vital Signs / I&O / Oxygen:
Vital Signs
Temp Pulse Resp BP Pulse Ox
96.2 F L 85 17 160/89 93
02/11/25 11:11 02/11/25 08:59 02/11/25 08:59 02/11/25 08:59 02/11/25 09:39
Intake and Output
02/10/25 02/11/25 02/12/25
06:59 06:59 06:59
Intake Total 100 / 100 1285 / 1285
Output Total 600 / 600 400 / 400
Balance -500 / -500 885 / 885
SaO2 93
Nasal Cannula flow liters per 2
minute
Physical Exam
General: Respiratory Distress (Appeared to get mildly dyspneic while talking) and Comfortable
HEENT: Normocephalic, Anicteric and Moist Mucous Membranes
Cardiovascular: Regular Rhythm and Murmur
Respiratory: Wheeze (n), Crackles (At bases), Rhonchi (Bilateral rhonchi noted), Non-Labored Respirations, Accessory Resp Muscle Use (n) and Stridor (n)
GI: Soft, Non Distended and Non Tender
Neurology: Awake, Alert and No Motor Deficits
Skin: Warm, Good Color, Cyanosis (n), Jaundice (n) and Rash (n)
Labs/Micro/Reports
Lab Data
02/11/25 04:46
02/11/25 04:46
Microbiology
02/05/25 14:38 Blood/Venous Blood Culture - Final
No Growth - Final Report
02/05/25 10:36 Blood/Venous Blood Culture - Final
No Growth - Final Report
02/08/25 14:33 Sputum Respiratory Culture - Final
02/08/25 14:33 Sputum Gram Stain - Final
--- NOTE | 2025-02-11 12:30 | CM ---
CM reviewed- pt remains in IMU on 2L
Pt NPO and plan for a swallow study today
Updates provided to [facility] who continue to offer bed pending availability
Beside visit with pt to provide update and introduce self
Update also provided to spouse, he is not paying for bed-hold and aware return to [facility] will be pending bed availability
PAC list provided should return bed not be available at [facility]
Discharge Disposition- return [facility] STR pending bed availability
[2025-02-11] MEDS: QUESTRAN PO (12:42)
[2025-02-11 12:56] LABS: Glucose - Point of Care 174 mg/dl (70-99)
[2025-02-11] MEDS: NOVOLOG FLEXPEN-LOW RESISTANCE SC (13:44)
--- NOTE | 2025-02-11 14:04 | PTCARENOTE ---
Addendum entered by Herbie Poon RN 02/11/25 19:16:
A lot of education provided throughout the shift to both patient and her about aspiration and the reason for her current diet. Patient asking a lot of questions, answers provided. Repeatedly educated on this topic as patient is very
forgetful.
Original Note:
Patient drowsy but arousable today with some confusion. BPs elevated, sats 99% on 2L, orthopneic. Patient with periods of tachypnea due to anxiety and reporting 'I can't breath' while sats 99% on 2L NC. Emotional support provided during these times.
Currently getting a FEES at bedside. at bedside. Closely monitoring.
--- NOTE | 2025-02-11 14:47 | W.PN.HOSP.TC ---
Today's Communication/Plan
-
Pur�ed diet with mildly thickened liquids as per speech recommendations
Resume valsartan for hypertension
Assessment / Plan
Assessment / Plan
HPI:
Patient is pleasant 84 years old with history of MDS, anemia, hypertension, COPD who came to the ER today with shortness of breath.
Patient was recently admitted to the hospital and discharged on January 29 for anemia requires blood transfusion.
Patient was having shortness of breath and low oxygen as outpatient, she is currently lives at SNF.
Outpatient chest x-ray yesterday shows right-sided pneumonia, patient started on oral amoxicillin.
Assessment/plan:
Septic shock, required brief Levophed
Sepsis secondary to pneumonia, possible aspiration pneumonia
Associated with acute organ dysfunction, acute renal failure, lactic acidosis, acute hypoxic respiratory failure
-COVID/flu/urine Legionella/urine strep antigens all negative
-Blood cultures negative, urine cultures growing Klebsiella
-MRSA negative, vancomycin discontinued
-Appreciate pulmonology input, IV Zosyn changed to IV Unasyn
Acute hypoxic respiratory failure.
-Secondary to pneumonia/CHF. ABG came back shows no hypercapnia.
-Appreciate pulmonology input, started on steroids 02/09, changed to IV Solu-Medrol 02/11
-Continue BiPAP at bedtime and during the day as needed -not tolerating BiPAP.
-Mucomyst changed to hypertonic saline, continue bronchodilators, IS, flutter valve
-Currently requiring 2 L of oxygen, wean as tolerated
-Follow-up chest x-ray ordered for tomorrow am
Dysphagia.
-Unsuccessful Dobbhoff placement by Dr. Parekh
-02/11 FEES shows signs of weakness and deep penetration with thin liquids
-SPL rec pur�e with mildly thick liq with single sips full supervision and assist only when awake and alert
Hypernatremia
- IV Lasix discontinued 02/10
- Status post D5W
- Sodium improving, will give 0.2 normal saline today, trend sodium
Lactic acidosis.
-Resolved
Acute kidney injury
-Resolved
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
-Follows with Dr. Booth at [facility], on luspatercept outpt
-Status post 1 unit packed red blood cells on 02/08 for hemoglobin 6.8
-Hemoglobin improved, continue to monitor and transfuse for hemoglobin less than 7.0
History of COPD
-IV steroids and bronchodilators as per pulmonology
Acute on chronic diastolic CHF.
-Discontinued IV Lasix secondary to hypernatremia
Most recent echocardiogram in September 2024
Estimated left ventricular ejection fraction is >75%, by visual assessment.
Normal regional wall motion.
Normal right ventricular size and function.
Mild mitral stenosis, mean gradient 3 mmHg.
Aortic sclerosis without stenosis.
Mild to moderate tricuspid regurgitation. Estimated pulmonary artery pressure
of 40-45 mmHg.
Essential hypertension
- Blood pressure trending up, resume home valsartan 80 mg daily with hold parameters
Chronic pain.
- Continue home pain medications
DVT prophylaxis�subcu heparin
Full Code
Updated 02/10, 02/11
Updated patient's contact lens fitter PCP 02/11
Total time spent to see the patient on the floor, examine the patient, review data and lab results, discuss treatment plan with patient, nursing staff around 55 minutes.
Physical Exam
General: Appears weak and chronically ill, no acute distress
HEENT: Normocephalic, Atraumatic, EOMI, MMM
Respiratory: Bibasilar crackles
Cardiac: Normal S1/S2, Regular Rate and Rhythm
GI: Soft, Nontender, Nondistended, Normal Bowel Sounds
Extremities: No Clubbing, Cyanosis
Neuro: Slow to respond
Psych: Calm, Cooperative
Anticipated Discharge: > 48 hours
Subjective/Interval History
-
Date of Service: February 11, 2025
Patient complains of being thirsty. She continues to states she is short of breath, and has intermittent coughing. No fever, no vomiting.
Objective Data
-
Labs:
Laboratory Results
02/11/25
04:46
WBC 2.8 L
Hgb 8.0 L
Hct 25.7 L
Plt Count 114 L
Sodium 149 H
Potassium 4.6
Chloride 118 H
Carbon Dioxide 25
BUN 75 H
Creatinine 0.9
Glucose 204 H
Calcium 8.8
Vital Signs:
Vital Signs
Temp Pulse Resp BP Pulse Ox
96.2 F L 90 16 160/89 99
02/11/25 11:11 02/11/25 11:46 02/11/25 11:46 02/11/25 08:59 02/11/25 11:46
I&O
02/10/25 02/11/25 02/12/25
06:59 06:59 06:59
Intake Total 100 / 100 1285 / 1285
Output Total 600 / 600 400 / 400
Balance -500 / -500 885 / 885
[2025-02-11] MEDS: SOLU-MEDROL PF 40 MG IV (15:00)
[2025-02-11] MEDS: TYLENOL 650 MG PO (15:01)
[2025-02-11] MEDS: DIOVAN 80 MG PO (16:53)
[2025-02-11] MEDS: UNASYN IV ×2 (16:54→23:05)
[2025-02-11] MEDS: NOVOLOG FLEXPEN-LOW RESISTANCE 1 UNITS SC (16:55)
[2025-02-11 17:03] LABS: Glucose - Point of Care 174 mg/dl (70-99)
[2025-02-11 21:52] LABS: Glucose - Point of Care 197 mg/dl (70-99)
--- NOTE | 2025-02-11 21:57 | RESPNOTE ---
PT refused the BIPAP for HS use, will attempt again tomorrow night.
[2025-02-11] MEDS: HEPARIN 5000 UNITS SC (23:05)
[2025-02-11] MEDS: REMOVE LIDOCAINE PATCH 1 PATCH REMOVE (23:06)
[2025-02-12] VITALS (10 sets, daily range): BP systolic 146–161; BP diastolic 62–96; BMI 26.6
--- NOTE | 2025-02-12 00:43 | PTCARENOTE ---
Pt appearing more awake and alert this evening. Pt able to make needs known and ring keara gann. Pt spo2 98% 2l. Pt having times of anxiety, emotional support given. Call gann within reach bed alarm on. Assessment care and vitals as charted.
[2025-02-12] MEDS: UNASYN IV ×4 (04:06→22:41)
[2025-02-12 06:09] LABS: Blood Urea Nitrogen 71 mg/dl (7-17); Calcium 8.7 mg/dl (8.4-10.2); Carbon Dioxide 22 mmol/L (22-30); Chloride 118 mmol/L (98-107); Estimated Creatinine Clearance 35 ml/min; Glucose 153 mg/dl (70-99); Potassium 4.1 mmol/L (3.5-5.1); Sodium 146 mmol/L (135-145); eGFR > 60.00
[2025-02-12 06:30] LABS: Hematocrit 25.6 % (37.0-47.0); Hemoglobin 7.9 g/dL (12.0-16.0); Mean Corp Hgb Conc. 30.9 g/dL (33.0-37.0); Mean Corpuscular Volume 85.3 fL (81.0-99.0); Platelet Count 90 10^3/uL (130-400); Red Cell Dist. Width 21.2 % (11.5-14.5)
--- NOTE | 2025-02-12 06:31 | PTCARENOTE ---
Pt morning labs showing WBC critical at 2.4. Night NUT SHELLER made aware.
[2025-02-12] MEDS: DUONEB 3 ML INH ×2 (07:57→19:20)
[2025-02-12] MEDS: SODIUM CHLORIDE 3% FOR INHALATION 1 VIAL INH ×2 (07:57→19:20)
[2025-02-12] MEDS: NOVOLOG FLEXPEN-LOW RESISTANCE 1 UNITS SC ×2 (08:32→13:15)
[2025-02-12] MEDS: SOLU-MEDROL PF 40 MG IV (08:32)
[2025-02-12 08:33] LABS: Glucose - Point of Care 154 mg/dl (70-99)
[2025-02-12] MEDS: HEPARIN 5000 UNITS SC ×2 (08:33→21:12)
[2025-02-12] MEDS: VITAMIN D3 (cholecalciferol) 50 MCG PO (08:33)
[2025-02-12] MEDS: DIOVAN 80 MG PO (08:33)
[2025-02-12] MEDS: NEURONTIN 100 MG PO ×3 (08:33→21:12)
[2025-02-12] MEDS: PREVACID 30 MG PO (08:33)
[2025-02-12] MEDS: CELEXA 20 MG PO (08:33)
[2025-02-12] MEDS: ROBITUSSIN 200 MG PO ×4 (08:34→21:12)
[2025-02-12] MEDS: DESENEX/MITRAZOL/ZEASORB 1 APPLIC TOPICAL ×2 (08:35→21:12)
[2025-02-12] MEDS: LOW STRENGTH ASPIRIN 81 MG PO (08:35)
[2025-02-12] MEDS: LIDOCAINE 4% PATCH 1 PATCH TOPICAL (08:35)
--- NOTE | 2025-02-12 09:33 | W.PN.HOSP.TC ---
Addendum entered and electronically signed by Santo Shabazz MD 02/12/25 15:45:
Gouty arthritis of right third finger
-Improved on steroids, will add colchicine 0.6 mg twice daily 02/12
Original Note:
Today's Communication/Plan
-
stable for med-surg
Assessment / Plan
Assessment / Plan
HPI:
Patient is pleasant 84 years old with history of MDS, anemia, hypertension, COPD who came to the ER today with shortness of breath.
Patient was recently admitted to the hospital and discharged on January 29 for anemia requires blood transfusion.
Patient was having shortness of breath and low oxygen as outpatient, she is currently lives at SNF.
Outpatient chest x-ray yesterday shows right-sided pneumonia, patient started on oral amoxicillin.
Assessment/plan:
Septic shock, required brief Levophed
Sepsis secondary to pneumonia, possible aspiration pneumonia
Associated with acute organ dysfunction, acute renal failure, lactic acidosis, acute hypoxic respiratory failure
-COVID/flu/urine Legionella/urine strep antigens all negative
-Blood cultures negative, urine cultures growing Klebsiella
-MRSA negative, vancomycin discontinued
-Appreciate pulmonology input, IV Zosyn changed to IV Unasyn
Acute hypoxic respiratory failure.
-Secondary to pneumonia/CHF. ABG came back shows no hypercapnia.
-Appreciate pulmonology input, started on steroids 02/09, changed to IV Solu-Medrol 02/11
-Continue BiPAP at bedtime and during the day as needed -not tolerating BiPAP.
-Mucomyst changed to hypertonic saline, continue bronchodilators, IS, flutter valve
-Currently requiring 1 L of oxygen, wean as tolerated. She required as much as 6 L this hospital admission
-Follow-up chest x-ray 02/12 shows improvement
Dysphagia.
-Unsuccessful Dobbhoff placement by Dr. Parekh
-02/11 FEES shows signs of weakness and deep penetration with thin liquids
-SPL rec pur�e with mildly thick liq with single sips full supervision and assist only when awake and alert
Hypernatremia
- IV Lasix discontinued 02/10
- Status post D5W
- Sodium improving, will give 0.2 normal saline today, trend sodium
Lactic acidosis.
-Resolved
Acute kidney injury
-Resolved
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
Pancytopenia
-Follows with Dr. Booth at [facility], on luspatercept outpt
-Status post 1 unit packed red blood cells on 02/08 for hemoglobin 6.8
-Hemoglobin improved, continue to monitor and transfuse for hemoglobin less than 7.0
History of COPD
-IV steroids and bronchodilators as per pulmonology
Acute on chronic diastolic CHF.
-Discontinued IV Lasix secondary to hypernatremia
Most recent echocardiogram in September 2024
Estimated left ventricular ejection fraction is >75%, by visual assessment.
Normal regional wall motion.
Normal right ventricular size and function.
Mild mitral stenosis, mean gradient 3 mmHg.
Aortic sclerosis without stenosis.
Mild to moderate tricuspid regurgitation. Estimated pulmonary artery pressure
of 40-45 mmHg.
Essential hypertension
- Blood pressure trending up, resumed home valsartan 80 mg daily with hold parameters 02/11
Chronic pain.
- Continue home pain medications
DVT prophylaxis�subcu heparin
Full Code
Updated patient's compounder helper PCP 02/11
Updated 02/10, 02/11, 02/12
Total time spent to see the patient on the floor, examine the patient, review data and lab results, discuss treatment plan with patient, nursing staff around 52 minutes.
Physical Exam
General: Appears more energetic, no acute distress
HEENT: Normocephalic, Atraumatic, EOMI, MMM
Respiratory: R basilar crackles
Cardiac: Normal S1/S2, Regular Rate and Rhythm
GI: Soft, Nontender, Nondistended, Normal Bowel Sounds
Extremities: No Clubbing, Cyanosis
Neuro: No focal deficits noted
Psych: Calm, Cooperative
Derm: Diffuse ecchymosis
Anticipated Discharge: 24 - 48 hours
Subjective/Interval History
-
Date of Service: February 12, 2025
Patient appears more awake, alert, and energetic today. She denies shortness of breath. She is tolerating her pur�es. No fever, no vomiting.
Objective Data
-
Labs:
Laboratory Results
02/12/25
05:06
WBC 2.4 L*
Hgb 7.9 L
Hct 25.6 L
Plt Count 90 L D
Sodium 146 H
Potassium 4.1
Chloride 118 H
Carbon Dioxide 22
BUN 71 H
Creatinine 0.9
Glucose 153 H
Calcium 8.7
Vital Signs:
Vital Signs
Temp Pulse Resp BP Pulse Ox
97 F 87 15 152/83 99
02/12/25 08:44 02/12/25 08:33 02/12/25 08:00 02/12/25 08:33 02/12/25 08:00
I&O
02/11/25 02/12/25 02/13/25
06:59 06:59 06:59
Intake Total 1285 / 1285 715 / 715
Output Total 400 / 400
Balance 885 / 885 715 / 715
[2025-02-12] MEDS: 0.45%NACL 1000 IV (10:05)
[2025-02-12] MEDS: COLCHICINE 0.6 MG PO ×2 (10:09→21:11)
--- NOTE | 2025-02-12 12:04 | W.PN.PUL3 ---
Today's Communication / Plan
-
- Continued clinical and radiological improvement, wean oxygen as tolerated
- Continue IV Unasyn and steroids
- Speech therapy, advance diet as tolerated
- Lower DuoNeb and hypertonic saline to twice daily
Assessment
-
84-year-old woman with multiple comorbidities, recently discharged from the hospital, returns to the emergency room complaining of shortness of breath. She was found to be hypotensive, hypoxemic, chest x-ray with large right lower lobe infiltrate
and also UTI. Hypotension responded to IV fluid resuscitation, patient does have increased work of breathing. Currently in the intermediate care unit.
Pulmonary consulted 02/08/2024.
Conditions present prior admission:
Discharged from the hospital January 29, 2025: Symptomatic anemia status posttransfusion.
Myelodysplastic syndrome
Coronary artery disease/carotid stenosis
COPD.
ABIOLA-on CPAP
Chronic heart failure with preserved ejection fraction
Essential hypertension
Dyslipidemia
Asthma
Obstructive sleep apnea
Depression
Nephrolithiasis
GI bleed/peptic ulcer disease
Spinal stenosis
Ureteral Stent with Lithotripsy
Left Hand/Wrist Surgery
Bilateral Rotator Cuff
Appendectomy
Assessment and plan:
#1. Acute hypoxemic respiratory failure due to pneumonia, suspect aspiration pneumonia
- Clinically improving, decreasing O2 requirement, radiological improvement also noted.
- Blood cultures, sputum cultures, MRSA screen negative so far. Legionella, streptococcal antigen, influenza AMB screen negative
- Discontinued Zosyn, initiated Unasyn to cover oral dulce
- Continue steroid considering severity of pneumonia, switched to Solu-Medrol 40 mg daily for 5 doses
- O2 as needed, keep saturations above 90%
- Work of breathing improving, lying in bed in no acute distress
- Continue airway clearance with hypertonic saline and DuoNeb, lower frequency to twice daily considering clinical improvement.
- Patient not tolerating positive pressure ventilation. Uses ASV at home. Monitor off PAP therapy. ABG 7.41/31/136. Patient awake, alert and conversant during my evaluation
- Incentive spirometry and flutter valve as tolerated
Other medical diagnoses:
-Severe anemia due to MDS
-Acute kidney injury due to sepsis, improved
-Urine cultures with Klebsiella pneumonia
-Hypernatremia improving.
DVT prophylaxis-SCDs due to severe anemia. Resumed subcu heparin
GI prophylaxis-on PPI
Goals of care discussion ongoing-Dr. Bruce asked patient 02/09/2025 if she would want intubation if respiratory status further declined-she believes she would want intubation for now
Dr. Thakur discussed with over the phone 02/07/2025. For now we will remain full code.
Total time spent on this consultation/encounter ___46_ minutes which includes review of history, physical exam, medications, laboratory data, personal review of imaging, extensive review of outpatient records, discussion with care team and
respiratory therapy.
Data reviewed:
ECHO 09/25/2024:
Estimated left ventricular ejection fraction is >75%, by visual assessment.
Normal regional wall motion.
Normal right ventricular size and function.
Mild mitral stenosis, mean gradient 3 mmHg.
Aortic sclerosis without stenosis.
Mild to moderate tricuspid regurgitation. Estimated pulmonary artery pressure
of 40-45 mmHg.
Subjective Data
-
Date of Service:
Date of Service: February 12, 2025
Chief Complaint: Pulmonary Follow Up and Dyspnea Follow Up
Objective Data
Data Reviewed
Vital Signs / I&O / Oxygen:
Vital Signs
Temp Pulse Resp BP Pulse Ox
97.2 F 96 21 156/96 98
02/12/25 11:02 02/12/25 10:00 02/12/25 10:00 02/12/25 10:00 02/12/25 10:00
Intake and Output
02/11/25 02/12/25 02/13/25
06:59 06:59 06:59
Intake Total 1285 / 1285 715 / 715
Output Total 400 / 400
Balance 885 / 885 715 / 715
SaO2 98
Nasal Cannula flow liters per 1
minute
Physical Exam
General: Respiratory Distress (Appears comfortable)
HEENT: Normocephalic, Anicteric and Moist Mucous Membranes
Cardiovascular: Regular Rhythm and Murmur
Respiratory: Rhonchi (Quite improved minimal lower lobe rhonchi) and Non-Labored Respirations
GI: Soft, Non Distended and Non Tender
Neurology: Awake and Alert
Skin: Warm, Good Color, Cyanosis (n), Jaundice (n) and Rash (n)
Labs/Micro/Reports
Lab Data
02/12/25 05:06
02/12/25 05:06
Microbiology
02/05/25 14:38 Blood/Venous Blood Culture - Final
No Growth - Final Report
02/05/25 10:36 Blood/Venous Blood Culture - Final
No Growth - Final Report
--- NOTE | 2025-02-12 12:26 | CM ---
Addendum entered by Gladys Delong 02/12/25 15:17:
Addition: came up to MIKE Graham & now does not want [facility], but the other two and now [facility], which the referral was made to via [place].
Original Note:
Following up on patient. RN stated that patient is on a pureed diet now and off monitors. RN that patient may go the floors today.
MIKE Graham introduced self to the and patient. MIKE Graham confirmed [facility] is the primary, but asked if there are a secondary and third choice. said that this is the order:
-[facility]
-[facility]
-[facility]
MIKE Graham made the referrals to these latter 2 choices as other options.
PLAN: To SNF when medically ready, no auth necessary.
[2025-02-12 12:32] LABS: Glucose - Point of Care 186 mg/dl (70-99)
[2025-02-12] MEDS: QUESTRAN 4 GRAM PO (13:16)
--- NOTE | 2025-02-12 13:52 | PN.CDI ---
CDI
- -
CDI:
Physician Documentation Request
Admit Date: 02/05/25 12:31
Dear Doctor Do,
Patient admitted for sepsis.
02/11 Hospialist PN: 'Acute on chronic anemia secondary to MDS -Follows with Dr. Booth at [facility], on luspatercept outpt -Status post 1 unit packed red blood cells on 02/08 for hemoglobin 6.8'
Laboratory Tests
02/10/25 02/11/25 02/12/25
04:29 04:46 05:06
WBC 3.4 L 2.8 L 2.4 L*
RBC 2.88 L 3.04 L 3.00 L
Hgb 7.7 L 8.0 L 7.9 L
Plt Count 104 L 114 L 90 L D
Based on the above, could you clarify in the progress notes, the appropriate diagnosis, if significant, that supports the above abnormalities and additional evaluation, monitoring and/or treatment rendered:
Pancytopenia
Abnormal lab values insignificant
Other
Use of terms such as suspected, likely, concern for, or probable (associated with a specific diagnosis that is being evaluated, monitored, or treated as if it exists) are acceptable and can be coded in the inpatient setting, when documented at the
time of discharge.
Thank you,
Lilliana Dougherty RN, BSN
CDI Specialist
Available via [place] text
Please use your independent medical judgment in providing your response.
[2025-02-12] MEDS: NOVOLOG FLEXPEN-MODERATE RESISTANCE 1 UNITS SC (17:02)
--- NOTE | 2025-02-12 17:22 | PTCARENOTE ---
Pt intermittently confused throughout the shift. restless at times. tolerated pureed diet. downgraded to Med Surg, will be transferred to [facility].
[2025-02-12 17:31] LABS: Glucose - Point of Care 152 mg/dl (70-99)
--- NOTE | 2025-02-12 19:16 | PTCARENOTE ---
Pt received at 1830 from IMU, via stretcher, accompanied by her and PCT. Pt pulled over from stretcher to bed with assist of three staff members and she tolerated well. Personal items and call light within reach. IVF restarted. Pt
oriented to staff and environment. Bed alarm armed and audible. All needs met.
--- NOTE | 2025-02-12 20:46 | PTCARENOTE ---
Pt was not feeling up to brushing their teeth.
[2025-02-12] MEDS: REMOVE LIDOCAINE PATCH 1 PATCH REMOVE (21:12)
[2025-02-12 21:39] LABS: Glucose - Point of Care 203 mg/dl (70-99)
[2025-02-13] MEDS: MORPHINE SULFATE 2 MG IV (02:42)
[2025-02-13] MEDS: UNASYN IV ×4 (04:38→20:59)
[2025-02-13 06:00] VITALS: BMI 26.7
[2025-02-13 06:04] LABS: Hematocrit 25.7 % (37.0-47.0); Hemoglobin 8.3 g/dL (12.0-16.0); Mean Corp Hgb Conc. 32.3 g/dL (33.0-37.0); Mean Corpuscular Volume 82.6 fL (81.0-99.0); Platelet Count 105 10^3/uL (130-400); Red Cell Dist. Width 21.1 % (11.5-14.5)
[2025-02-13 06:16] LABS: Blood Urea Nitrogen 48 mg/dl (7-17); Calcium 8.5 mg/dl (8.4-10.2); Carbon Dioxide 23 mmol/L (22-30); Chloride 121 mmol/L (98-107); Estimated Creatinine Clearance 40 ml/min; Glucose 104 mg/dl (70-99); Potassium 3.3 mmol/L (3.5-5.1); Sodium 148 mmol/L (135-145); eGFR > 60.00
[2025-02-13 07:23] VITALS: BP 188/96
[2025-02-13] MEDS: SODIUM CHLORIDE 3% FOR INHALATION 1 VIAL INH ×2 (07:34→19:44)
[2025-02-13] MEDS: DUONEB 3 ML INH ×2 (07:34→19:44)
[2025-02-13 07:45] LABS: Glucose - Point of Care 110 mg/dl (70-99)
[2025-02-13] MEDS: NOVOLOG FLEXPEN-MODERATE RESISTANCE SC ×2 (08:03→18:29)
[2025-02-13] MEDS: SOLU-MEDROL PF 40 MG IV (08:56)
[2025-02-13] MEDS: ROBITUSSIN 200 MG PO ×4 (08:56→20:59)
[2025-02-13] MEDS: HEPARIN 5000 UNITS SC (08:56)
[2025-02-13] MEDS: PREVACID 30 MG PO (08:58)
[2025-02-13] MEDS: DIOVAN 80 MG PO (08:58)
[2025-02-13] MEDS: COLCHICINE 0.6 MG PO ×2 (08:58→20:55)
[2025-02-13] MEDS: LIDOCAINE 4% PATCH 1 PATCH TOPICAL (08:58)
[2025-02-13] MEDS: CELEXA 20 MG PO (08:58)
[2025-02-13] MEDS: NEURONTIN 100 MG PO ×3 (08:59→20:59)
[2025-02-13] MEDS: LOW STRENGTH ASPIRIN 81 MG PO (08:59)
[2025-02-13] MEDS: DESENEX/MITRAZOL/ZEASORB 1 APPLIC TOPICAL ×2 (08:59→20:47)
[2025-02-13] MEDS: VITAMIN D3 (cholecalciferol) 50 MCG PO (08:59)
--- NOTE | 2025-02-13 09:11 | W.PN.HOSP.TC ---
Today's Communication/Plan
-
see bold
Assessment / Plan
Assessment / Plan
HPI:
Patient is pleasant 84 years old with history of MDS, anemia, hypertension, COPD who came to the ER today with shortness of breath.
Patient was recently admitted to the hospital and discharged on January 29 for anemia requires blood transfusion.
Patient was having shortness of breath and low oxygen as outpatient, she is currently lives at SNF.
Outpatient chest x-ray yesterday shows right-sided pneumonia, patient started on oral amoxicillin.
Assessment/plan:
Septic shock, required brief Levophed
Sepsis secondary to pneumonia, possible aspiration pneumonia
Associated with acute organ dysfunction, acute renal failure, lactic acidosis, acute hypoxic respiratory failure
-COVID/flu/urine Legionella/urine strep antigens all negative
-Blood cultures negative, urine cultures growing Klebsiella
-MRSA negative, vancomycin discontinued
-Appreciate pulmonology input, IV Zosyn changed to IV Unasyn
Acute hypoxic respiratory failure.
-Secondary to pneumonia/CHF. ABG came back shows no hypercapnia.
-Appreciate pulmonology input, started on steroids 02/09, changed to IV Solu-Medrol 02/11
-Continue BiPAP at bedtime and during the day as needed -not tolerating BiPAP.
-Mucomyst changed to hypertonic saline, continue bronchodilators, IS, flutter valve
-Currently requiring 1 L of oxygen, wean as tolerated. She required as much as 6 L this hospital admission
-Follow-up chest x-ray 02/12 shows improvement
Dysphagia
Weakness/severe deconditioning
-Unsuccessful Dobbhoff placement by Dr. Parekh
-02/11 FEES shows signs of weakness and deep penetration with thin liquids
-SPL rec pur�e with mildly thick liq with single sips full supervision and assist only when awake and alert
-Informed that patient would likely have recurrent aspiration pneumonia due to her dysphagia
-Goals of care conversation held with �he is hopeful that she will make a full recovery
Hypernatremia
- IV Lasix discontinued 02/10
- Status post D5W
- Sodium improving, will give 0.2 normal saline today, trend sodium
Gouty arthritis of right third finger
-Improved on steroids, added colchicine 0.6 mg twice daily 02/12
Lactic acidosis.
-Resolved
Acute kidney injury
-Resolved
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
Pancytopenia
-Follows with Dr. Booth at [facility], on luspatercept outpt
-Status post 1 unit packed red blood cells on 02/08 for hemoglobin 6.8
-Hemoglobin improved, continue to monitor and transfuse for hemoglobin less than 7.0
History of COPD
-IV steroids and bronchodilators as per pulmonology
Acute on chronic diastolic CHF.
-Discontinued IV Lasix secondary to hypernatremia
Most recent echocardiogram in September 2024
Estimated left ventricular ejection fraction is >75%, by visual assessment.
Normal regional wall motion.
Normal right ventricular size and function.
Mild mitral stenosis, mean gradient 3 mmHg.
Aortic sclerosis without stenosis.
Mild to moderate tricuspid regurgitation. Estimated pulmonary artery pressure
of 40-45 mmHg.
Essential hypertension
- Blood pressure trending up, resumed home valsartan 80 mg daily with hold parameters 02/11
Chronic pain.
- Continue home pain medications
DVT prophylaxis�subcu heparin
Full Code
Updated patient's guide dog mobility instructor PCP 02/11
Updated 02/10, 02/11, 02/12, 02/13
Total time spent to see the patient on the floor, examine the patient, review data and lab results, discuss treatment plan with patient, nursing staff around 51 minutes.
Physical Exam
General: Appears more energetic, no acute distress
HEENT: Normocephalic, Atraumatic, EOMI, MMM
Respiratory: R basilar crackles
Cardiac: Normal S1/S2, Regular Rate and Rhythm
GI: Soft, Nontender, Nondistended, Normal Bowel Sounds
Extremities: No Clubbing, Cyanosis
Neuro: No focal deficits noted
Psych: Calm, Cooperative
Derm: Ecchymosis on hands and arms
Anticipated Discharge: 24 - 48 hours
Subjective/Interval History
-
Date of Service: February 12, 2025
Nursing staff reports patient eats anywhere from 10% to 100% of her meals. Patient complains of being thirsty. She denies shortness of breath. States her right third finger pain is 5 out of 10 in intensity. No fever, no vomiting.
Objective Data
-
Labs:
Laboratory Results
02/12/25
05:06
WBC 2.4 L*
Hgb 7.9 L
Hct 25.6 L
Plt Count 90 L D
Sodium 146 H
Potassium 4.1
Chloride 118 H
Carbon Dioxide 22
BUN 71 H
Creatinine 0.9
Glucose 153 H
Calcium 8.7
Vital Signs:
Vital Signs
Temp Pulse Resp BP Pulse Ox
97.6 F 96 21 156/96 97
02/12/25 15:21 02/12/25 10:00 02/12/25 10:00 02/12/25 10:00 02/12/25 13:25
I&O
02/11/25 02/12/25 02/13/25
06:59 06:59 06:59
Intake Total 1285 / 1285 715 / 715
Output Total 400 / 400
Balance 885 / 885 715 / 715
[2025-02-13] MEDS: KCL ELIXIR 40 MEQ PO (09:41)
[2025-02-13] MEDS: SODIUM CHLORIDE 1019.625 MEQ IV ×2 (10:28)
[2025-02-13 11:15] LABS: Magnesium 1.9 mg/dl (1.6-2.3)
--- NOTE | 2025-02-13 11:45 | W.PN.PUL3 ---
Today's Communication / Plan
-
- Continue 5 days of steroids
- Speech therapy
- Needs goals of care discussion. Compromised swallowing function puts her at increased risk of recurrent aspiration pneumonia in future.
Assessment
-
84-year-old woman with multiple comorbidities, recently discharged from the hospital, returns to the emergency room complaining of shortness of breath. She was found to be hypotensive, hypoxemic, chest x-ray with large right lower lobe infiltrate
and also UTI. Hypotension responded to IV fluid resuscitation, patient does have increased work of breathing. Currently in the intermediate care unit.
Pulmonary consulted 02/08/2024.
Conditions present prior admission:
Discharged from the hospital January 29, 2025: Symptomatic anemia status posttransfusion.
Myelodysplastic syndrome
Coronary artery disease/carotid stenosis
COPD.
ABIOLA-on CPAP
Chronic heart failure with preserved ejection fraction
Essential hypertension
Dyslipidemia
Asthma
Obstructive sleep apnea
Depression
Nephrolithiasis
GI bleed/peptic ulcer disease
Spinal stenosis
Ureteral Stent with Lithotripsy
Left Hand/Wrist Surgery
Bilateral Rotator Cuff
Appendectomy
Assessment and plan:
#1. Acute hypoxemic respiratory failure due to pneumonia, suspect aspiration pneumonia
- Clinically improving, off supplemental oxygen now, doing well on room air. Radiological and clinical improvement noted
- Blood cultures, sputum cultures, MRSA screen negative so far. Legionella, streptococcal antigen, influenza AMB screen negative
- Discontinued Zosyn, initiated Unasyn to cover oral dulce
- Continue steroid considering severity of pneumonia, switched to Solu-Medrol 40 mg daily for 5 doses
- Work of breathing improving, lying in bed in no acute distress
- Continue airway clearance with hypertonic saline and DuoNeb, lowered frequency to twice daily considering clinical improvement.
- Patient not tolerating positive pressure ventilation. Uses ASV at home. Monitor off PAP therapy. ABG 7.41/31/136. Patient awake, alert and conversant during my evaluation
- Incentive spirometry and flutter valve as tolerated
- Unfortunately with compromised swallowing function, patient at high risk of aspiration pneumonia in future. Needs goals of care discussions. Feeding tube placement does not necessarily decrease the risk of aspiration pneumonia. Considering
patient's strong desire to want to drink water, a more palliative or comfort focused approach might be reasonable.
Other medical diagnoses:
-Severe anemia due to MDS
-Acute kidney injury due to sepsis, improved
-Urine cultures with Klebsiella pneumonia
-Hypernatremia improving.
DVT prophylaxis-SCDs due to severe anemia. Resumed subcu heparin
GI prophylaxis-on PPI
Goals of care discussion ongoing-Dr. Bruce asked patient 02/09/2025 if she would want intubation if respiratory status further declined-she believes she would want intubation for now
Dr. Thakur discussed with over the phone 02/07/2025. For now we will remain full code.
Total time spent on this consultation/encounter ___45_ minutes which includes review of history, physical exam, medications, laboratory data, personal review of imaging, extensive review of outpatient records, discussion with care team and
respiratory therapy.
Data reviewed:
ECHO 09/25/2024:
Estimated left ventricular ejection fraction is >75%, by visual assessment.
Normal regional wall motion.
Normal right ventricular size and function.
Mild mitral stenosis, mean gradient 3 mmHg.
Aortic sclerosis without stenosis.
Mild to moderate tricuspid regurgitation. Estimated pulmonary artery pressure
of 40-45 mmHg.
Subjective Data
-
Date of Service:
Date of Service: February 13, 2025
Chief Complaint: Pulmonary Follow Up and Dyspnea Follow Up
Subjective:
Patient comfortably lying in bed, reports wanting to drink water, saturating well on room air
Review of Systems
Genitourinary: Other (No new pulmonary symptoms reported)
Objective Data
Data Reviewed
Vital Signs / I&O / Oxygen:
Vital Signs
Temp Pulse Resp BP Pulse Ox
98.3 F 97 18 188/96 94
02/13/25 07:23 02/13/25 07:37 02/13/25 07:37 02/13/25 07:23 02/13/25 07:37
Intake and Output
02/12/25 02/13/25 02/14/25
06:59 06:59 06:59
Intake Total 715 / 715 360 / 360
Balance 715 / 715 360 / 360
SaO2 94
Nasal Cannula flow liters per 2
minute
Physical Exam
HEENT: Normocephalic, Anicteric and Moist Mucous Membranes
Cardiovascular: Regular Rhythm and Murmur
Respiratory: Clear and Non-Labored Respirations
GI: Soft, Non Distended and Non Tender
Neurology: Awake and Alert
Skin: Warm, Good Color, Cyanosis (n), Jaundice (n) and Rash (n)
Labs/Micro/Reports
Lab Data
02/13/25 05:31
02/13/25 05:31
Microbiology
02/05/25 14:38 Blood/Venous Blood Culture - Final
No Growth - Final Report
02/05/25 10:36 Blood/Venous Blood Culture - Final
No Growth - Final Report
[2025-02-13 11:53] LABS: Glucose - Point of Care 169 mg/dl (70-99)
[2025-02-13] MEDS: QUESTRAN 4 GRAM PO (12:48)
[2025-02-13] MEDS: NOVOLOG FLEXPEN-MODERATE RESISTANCE 1 UNITS SC (13:01)
[2025-02-13 14:34] VITALS: BP 164/60; PULSE 106; O2SAT 94
[2025-02-13 14:42] VITALS: BP 164/60; PULSE 106; O2SAT 94
[2025-02-13 15:15] VITALS: BP 159/85
[2025-02-13 17:15] LABS: Glucose - Point of Care 160 mg/dl (70-99)
[2025-02-13 18:26] LABS: Glucose - Point of Care 145 mg/dl (70-99)
--- NOTE | 2025-02-13 20:00 | PTCARENOTE ---
Notified VAT as IV site is bruised ( purple around the site)/ getting occluded when slightly bend. will continue to monitor the site as per advise.
[2025-02-13] MEDS: REMOVE LIDOCAINE PATCH 1 PATCH REMOVE (20:47)
[2025-02-13] MEDS: HEPARIN SC ×2 (20:55→21:13)
[2025-02-13 21:55] LABS: Glucose - Point of Care 124 mg/dl (70-99)
[2025-02-13 23:00] VITALS: BP 147/71
--- NOTE | 2025-02-13 23:22 | PTCARENOTE ---
Patient with multiple loose BM today. Notified Cali[facility] LANDRY, New order for Cdiff, collected specimen and sent as ordered.
[2025-02-14] MEDS: UNASYN IV ×4 (02:59→21:44)
[2025-02-14 06:00] VITALS: BMI 26.7
[2025-02-14 07:32] LABS: Glucose - Point of Care 97 mg/dl (70-99)
[2025-02-14 07:38] VITALS: BP 160/86
[2025-02-14 07:52] LABS: Hematocrit 26.8 % (37.0-47.0); Hemoglobin 8.4 g/dL (12.0-16.0); Mean Corp Hgb Conc. 31.3 g/dL (33.0-37.0); Mean Corpuscular Volume 83.8 fL (81.0-99.0); Platelet Count 111 10^3/uL (130-400); Red Cell Dist. Width 21.0 % (11.5-14.5)
[2025-02-14] MEDS: DUONEB 3 ML INH (08:00)
[2025-02-14] MEDS: SODIUM CHLORIDE 3% FOR INHALATION 1 VIAL INH (08:01)
[2025-02-14 08:15] LABS: Blood Urea Nitrogen 30 mg/dl (7-17); Calcium 9.1 mg/dl (8.4-10.2); Carbon Dioxide 23 mmol/L (22-30); Chloride 119 mmol/L (98-107); Estimated Creatinine Clearance 40 ml/min; Glucose 98 mg/dl (70-99); Potassium 3.6 mmol/L (3.5-5.1); Sodium 147 mmol/L (135-145); Uric Acid 8.1 mg/dl (2.5-6.2); eGFR > 60.00
[2025-02-14] MEDS: NOVOLOG FLEXPEN-MODERATE RESISTANCE SC (08:35)
[2025-02-14] MEDS: SOLU-MEDROL PF 40 MG IV (08:39)
[2025-02-14] MEDS: LIDOCAINE 4% PATCH 1 PATCH TOPICAL (08:40)
[2025-02-14] MEDS: ROBITUSSIN 200 MG PO ×3 (08:41→21:44)
--- NOTE | 2025-02-14 08:41 | W.PN.HOSP.TC ---
Today's Communication/Plan
-
Plan for discharge to [facility] tomorrow
Assessment / Plan
Assessment / Plan
HPI:
Patient is pleasant 84 years old with history of MDS, anemia, hypertension, COPD who came to the ER today with shortness of breath.
Patient was recently admitted to the hospital and discharged on January 29 for anemia requires blood transfusion.
Patient was having shortness of breath and low oxygen as outpatient, she is currently lives at SNF.
Outpatient chest x-ray yesterday shows right-sided pneumonia, patient started on oral amoxicillin.
Assessment/plan:
Septic shock, required brief Levophed
Sepsis secondary to pneumonia, possible aspiration pneumonia
Associated with acute organ dysfunction, acute renal failure, lactic acidosis, acute hypoxic respiratory failure
-COVID/flu/urine Legionella/urine strep antigens all negative
-Blood cultures negative, urine cultures growing Klebsiella
-MRSA negative, vancomycin discontinued
-Appreciate pulmonology input, patient's pneumonia has resolved, she has received 9 days of IV antibiotics, will discontinue 02/14
-Plan for discharge to [facility] tomorrow
Acute hypoxic respiratory failure.
-Secondary to pneumonia/CHF. ABG came back shows no hypercapnia.
-Appreciate pulmonology input, started on steroids 02/09, changed to IV Solu-Medrol 02/11
-Continue BiPAP at bedtime and during the day as needed -not tolerating BiPAP.
-Mucomyst changed to hypertonic saline, continue bronchodilators, IS, flutter valve
-Currently on RA. She required as much as 6 L this hospital admission
-Follow-up chest x-ray 02/12 shows improvement
-Respiratory failure resolved, she is currently on room air, pulmonology discontinued IV steroids 02/14
Dysphagia
Weakness/severe deconditioning
-Unsuccessful Dobbhoff placement by Dr. Parekh
-02/11 FEES shows signs of weakness and deep penetration with thin liquids
-SPL rec pur�e with mildly thick liq with single sips full supervision and assist only when awake and alert
-Informed that patient would likely have recurrent aspiration pneumonia due to her dysphagia
-This is her third hospital admission since 01/16/2025
-Goals of care conversation held with �he is hopeful that she will make a full recovery
Hypernatremia
- IV Lasix discontinued 02/10
- Sodium improving, will give D5W today, trend sodium
Gouty arthritis of right third finger
- Improving on colchicine 0.6 mg twice daily 02/12
Hypokalemia
- Replete as needed, Mg normal
Lactic acidosis.
-Resolved
Acute kidney injury
-Resolved
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
Pancytopenia
-Follows with Dr. Booth at [facility], on luspatercept outpt
-Status post 1 unit packed red blood cells on 02/08 for hemoglobin 6.8
-Hemoglobin improved, continue to monitor and transfuse for hemoglobin less than 7.0
- trying to bring in luspatercept, so we can administer to her
History of COPD
-Discontinue IV steroids 02/14, continue bronchodilators
Acute on chronic diastolic CHF.
-Discontinued IV Lasix secondary to hypernatremia
Most recent echocardiogram in September 2024
Estimated left ventricular ejection fraction is >75%, by visual assessment.
Normal regional wall motion.
Normal right ventricular size and function.
Mild mitral stenosis, mean gradient 3 mmHg.
Aortic sclerosis without stenosis.
Mild to moderate tricuspid regurgitation. Estimated pulmonary artery pressure
of 40-45 mmHg.
Essential hypertension
- Blood pressure trended, resumed home valsartan 80 mg daily with hold parameters 02/11
Chronic pain.
- Hold oxycodone
Thrombocytopenia
Diffuse ecchymosis
-Continue subcu heparin for DVT prophylaxis as she is high risk
DVT prophylaxis�subcu heparin
Full Code
Updated patient's tool and die assembler PCP 02/11
Updated 02/10, 02/11, 02/12, 02/13, 02/14
Total time spent to see the patient on the floor, examine the patient, review data and lab results, discuss treatment plan with patient, nursing staff around 50 minutes.
Physical Exam
General: Appears more energetic, no acute distress
HEENT: Normocephalic, Atraumatic, EOMI, MMM
Respiratory: R basilar crackles
Cardiac: Normal S1/S2, Regular Rate and Rhythm
GI: Soft, Nontender, Nondistended, Normal Bowel Sounds
Extremities: No Clubbing, Cyanosis
Neuro: No focal deficits noted
Psych: Calm, Cooperative
Derm: Ecchymosis on hands and arms
Anticipated Discharge: Within 24 hours
Subjective/Interval History
-
Date of Service: February 13, 2025
Patient denies shortness of breath. She continues to cough. Her right third finger pain has resolved. No fever, no vomiting.
Objective Data
-
Labs:
Laboratory Results
02/13/25
05:31
WBC 4.1 L
Hgb 8.3 L
Hct 25.7 L
Plt Count 105 L
Sodium 148 H
Potassium 3.3 L
Chloride 121 H
Carbon Dioxide 23
BUN 48 H
Creatinine 0.8
Glucose 104 H
Calcium 8.5
Vital Signs:
Vital Signs
Temp Pulse Resp BP Pulse Ox
98.1 F 107 17 159/85 97
02/13/25 15:15 02/13/25 15:15 02/13/25 15:15 02/13/25 15:15 02/13/25 15:15
I&O
02/12/25 02/13/25 02/14/25
06:59 06:59 06:59
Intake Total 715 / 715 360 / 360
Balance 715 / 715 360 / 360
[2025-02-14] MEDS: HEPARIN 5000 UNITS SC ×2 (08:42→20:44)
[2025-02-14] MEDS: NEURONTIN 100 MG PO ×3 (08:42→21:44)
[2025-02-14] MEDS: VITAMIN D3 (cholecalciferol) 50 MCG PO (08:42)
[2025-02-14] MEDS: DIOVAN 80 MG PO (08:43)
[2025-02-14] MEDS: CELEXA 20 MG PO (08:43)
[2025-02-14] MEDS: LOW STRENGTH ASPIRIN 81 MG PO (08:43)
[2025-02-14] MEDS: COLCHICINE 0.6 MG PO ×2 (08:43→20:43)
[2025-02-14] MEDS: PREVACID 30 MG PO (08:43)
[2025-02-14] MEDS: DESENEX/MITRAZOL/ZEASORB 1 APPLIC TOPICAL ×2 (09:07→20:44)
[2025-02-14] MEDS: KCL ELIXIR 40 MEQ PO (10:07)
--- NOTE | 2025-02-14 10:12 | W.PN.PUL3 ---
Today's Communication / Plan
-
- DC IV Solu-Medrol and hypertonic saline
- Total 7 days of antibiotic should suffice
- Pulmonary team will sign off, please call as needed
- Outpatient follow-up with pulmonary clinic
Assessment
-
84-year-old woman with multiple comorbidities, recently discharged from the hospital, returns to the emergency room complaining of shortness of breath. She was found to be hypotensive, hypoxemic, chest x-ray with large right lower lobe infiltrate
and also UTI. Hypotension responded to IV fluid resuscitation, patient does have increased work of breathing. Currently in the intermediate care unit.
Pulmonary consulted 02/08/2024.
Conditions present prior admission:
Discharged from the hospital January 29, 2025: Symptomatic anemia status posttransfusion.
Myelodysplastic syndrome
Coronary artery disease/carotid stenosis
COPD.
ABIOLA-on CPAP
Chronic heart failure with preserved ejection fraction
Essential hypertension
Dyslipidemia
Asthma
Obstructive sleep apnea
Depression
Nephrolithiasis
GI bleed/peptic ulcer disease
Spinal stenosis
Ureteral Stent with Lithotripsy
Left Hand/Wrist Surgery
Bilateral Rotator Cuff
Appendectomy
Assessment and plan:
#1. Acute hypoxemic respiratory failure due to pneumonia, suspect aspiration pneumonia
- Clinically improved, off supplemental oxygen now, doing well on room air. Radiological and clinical improvement noted
- Blood cultures, sputum cultures, MRSA screen negative so far. Legionella, streptococcal antigen, influenza AMB screen negative
- Discontinued Zosyn, initiated Unasyn to cover oral dulce. Total 7 days of antibiotic should suffice
- Discontinue steroids considering significant clinical improvement
- Work of breathing improving, lying flat in bed in no acute distress
- Can DC hypertonic saline and scheduled DuoNeb. Continue as needed DuoNeb
- Patient not tolerating positive pressure ventilation. Uses ASV at home. Monitor off PAP therapy. ABG 7.41/31/136. Patient awake, alert and conversant during my evaluation
- Incentive spirometry and flutter valve as tolerated
- Unfortunately with compromised swallowing function, patient at high risk of aspiration pneumonia in future. Needs goals of care discussions. Feeding tube placement does not necessarily decrease the risk of aspiration pneumonia. Considering
patient's strong desire to want to drink water, a more palliative or comfort focused approach might be reasonable.
#2. H/o ABIOLA
- Patient uses ASV at home, resume
- Outpatient follow-up with [facility] pulmonary clinic
Other medical diagnoses:
-Severe anemia due to MDS
-Acute kidney injury due to sepsis, improved
-Urine cultures with Klebsiella pneumonia
-Hypernatremia improving.
DVT prophylaxis-SCDs due to severe anemia. Resumed subcu heparin
GI prophylaxis-on PPI
Goals of care discussion ongoing-Dr. Bruce asked patient 02/09/2025 if she would want intubation if respiratory status further declined-she believes she would want intubation for now
Dr. Thakur discussed with over the phone 02/07/2025. For now we will remain full code.
Total time spent on this consultation/encounter ___42_ minutes which includes review of history, physical exam, medications, laboratory data, personal review of imaging, extensive review of outpatient records, discussion with care team and
respiratory therapy.
Data reviewed:
ECHO 09/25/2024:
Estimated left ventricular ejection fraction is >75%, by visual assessment.
Normal regional wall motion.
Normal right ventricular size and function.
Mild mitral stenosis, mean gradient 3 mmHg.
Aortic sclerosis without stenosis.
Mild to moderate tricuspid regurgitation. Estimated pulmonary artery pressure
of 40-45 mmHg.
Subjective Data
-
Date of Service:
Date of Service: February 14, 2025
Chief Complaint: Pulmonary Follow Up and Dyspnea Follow Up
Subjective:
Patient comfortable lying in bed on room air in no acute distress. Reports feeling better from pulmonary standpoint
Review of Systems
Genitourinary: Other (No further cough, wheezing or shortness of breath reported)
Objective Data
Data Reviewed
Vital Signs / I&O / Oxygen:
Vital Signs
Temp Pulse Resp BP Pulse Ox
97.7 F 86 18 160/86 92
02/14/25 07:38 02/14/25 08:03 02/14/25 08:03 02/14/25 07:38 02/14/25 08:03
Intake and Output
02/13/25 02/14/25 02/15/25
06:59 06:59 06:59
Intake Total 2110 120 / 120
Balance 2110 120 / 120
SaO2 92
Nasal Cannula flow liters per 2
minute
Physical Exam
General: Respiratory Distress (Appears comfortable)
HEENT: Normocephalic, Anicteric and Moist Mucous Membranes
Cardiovascular: Regular Rhythm and Murmur
Respiratory: Clear and Non-Labored Respirations
GI: Soft, Non Distended and Non Tender
Neurology: Awake and Alert
Skin: Warm, Good Color, Cyanosis (n), Jaundice (n) and Rash (n)
Labs/Micro/Reports
Lab Data
02/14/25 07:38
02/14/25 07:38
Microbiology
02/13/25 22:38 Feces/Stool C. difficile [facility] Antigen & Toxins - Final
Negative for toxigenic C.difficile
[2025-02-14] MEDS: D5W 1000 IV (10:20)
--- NOTE | 2025-02-14 11:07 | PN.CDI ---
CDI
- -
CDI:
Physician Documentation Request
Admit Date: 02/05/25 12:31
Dear Doctor Do,
Patient admitted for sepsis.
02/13 Potassium level: 3.3
02/13 Potassium chloride 40 meq PO administered
Based on the above, could you clarify in the progress notes, the appropriate diagnosis, if significant, that supports the above abnormalities and additional evaluation, monitoring and/or treatment rendered:
Hypokalemia
Abnormal lab value insignificant
Other
Use of terms such as suspected, likely, concern for, or probable (associated with a specific diagnosis that is being evaluated, monitored, or treated as if it exists) are acceptable and can be coded in the inpatient setting, when documented at the
time of discharge.
Thank you,
Lilliana Dougherty RN, BSN
CDI Specialist
Available via [place] text
Please use your independent medical judgment in providing your response.
[2025-02-14] MEDS: QUESTRAN 4 GRAM PO (11:33)
[2025-02-14 11:55] LABS: Glucose - Point of Care 179 mg/dl (70-99)
[2025-02-14] MEDS: NOVOLOG FLEXPEN-MODERATE RESISTANCE 1 UNITS SC (13:26)
[2025-02-14] MEDS: ROBITUSSIN PO (14:40)
[2025-02-14 14:57] VITALS: BP 119/93
[2025-02-14 15:06] VITALS: BP 182/76; PULSE 100; O2SAT 94
[2025-02-14 16:38] LABS: Glucose - Point of Care 214 mg/dl (70-99)
[2025-02-14] MEDS: NOVOLOG FLEXPEN-MODERATE RESISTANCE 3 UNITS SC (17:54)
[2025-02-14] MEDS: MELATONIN 5 MG PO (20:45)
[2025-02-14] MEDS: REMOVE LIDOCAINE PATCH 1 PATCH REMOVE (20:46)
[2025-02-14 20:50] LABS: Glucose - Point of Care 133 mg/dl (70-99)
[2025-02-14 23:35] VITALS: BP 132/80
[2025-02-15] MEDS: UNASYN IV (05:17)
[2025-02-15 06:22] VITALS: BMI 26.6
[2025-02-15 07:56] VITALS: BP 166/89
[2025-02-15 08:12] LABS: Glucose - Point of Care 92 mg/dl (70-99)
[2025-02-15] MEDS: NOVOLOG FLEXPEN-MODERATE RESISTANCE SC ×3 (08:13→16:32)
[2025-02-15] MEDS: PREVACID 30 MG PO (08:14)
[2025-02-15] MEDS: COLCHICINE 0.6 MG PO (08:14)
[2025-02-15] MEDS: DIOVAN 80 MG PO (08:15)
[2025-02-15] MEDS: NEURONTIN 100 MG PO ×2 (08:15→16:32)
[2025-02-15] MEDS: VITAMIN D3 (cholecalciferol) 50 MCG PO (08:16)
[2025-02-15] MEDS: LOW STRENGTH ASPIRIN 81 MG PO (08:16)
[2025-02-15] MEDS: CELEXA 20 MG PO (08:17)
[2025-02-15] MEDS: ROBITUSSIN 200 MG PO (08:18)
[2025-02-15] MEDS: HEPARIN 5000 UNITS SC (08:19)
[2025-02-15] MEDS: LIDOCAINE 4% PATCH TOPICAL ×2 (08:31→08:38)
[2025-02-15] MEDS: DESENEX/MITRAZOL/ZEASORB 1 APPLIC TOPICAL (08:34)
--- NOTE | 2025-02-15 08:53 | W.PN.HOSP.TC ---
Today's Communication/Plan
-
Discharge to [facility] today
Assessment / Plan
Assessment / Plan
HPI:
Patient is pleasant 84 years old with history of MDS, anemia, hypertension, COPD who came to the ER today with shortness of breath.
Patient was recently admitted to the hospital and discharged on January 29 for anemia requires blood transfusion.
Patient was having shortness of breath and low oxygen as outpatient, she is currently lives at SNF.
Outpatient chest x-ray yesterday shows right-sided pneumonia, patient started on oral amoxicillin.
Assessment/plan:
Septic shock, required brief Levophed
Sepsis secondary to pneumonia, possible aspiration pneumonia
Associated with acute organ dysfunction, acute renal failure, lactic acidosis, acute hypoxic respiratory failure
-COVID/flu/urine Legionella/urine strep antigens all negative
-Blood cultures negative, urine cultures growing Klebsiella
-MRSA negative, vancomycin discontinued
-Appreciate pulmonology input, patient's pneumonia has resolved, she has received 9 days of IV antibiotics, she does not need any more antibiotics
-Medically optimized for discharge to [facility] today, follow-up with PCP in less than 1 week
Acute hypoxic respiratory failure.
-Secondary to pneumonia/CHF. ABG came back shows no hypercapnia.
-Appreciate pulmonology input, started on steroids 02/09, changed to IV Solu-Medrol 02/11
-Continue BiPAP at bedtime and during the day as needed -not tolerating BiPAP.
-Mucomyst changed to hypertonic saline, continue bronchodilators, IS, flutter valve
-Currently on RA. She required as much as 6 L this hospital admission
-Follow-up chest x-ray 02/12 shows improvement
-Respiratory failure resolved, she is currently on room air, pulmonology discontinued IV steroids 02/14
Dysphagia
Weakness/severe deconditioning
-Unsuccessful Dobbhoff placement by Dr. Parekh
-02/11 FEES shows signs of weakness and deep penetration with thin liquids
-SPL rec pur�e with mildly thick liq with single sips full supervision and assist only when awake and alert
-Informed that patient would likely have recurrent aspiration pneumonia due to her dysphagia
-This is her third hospital admission since 01/16/2025
-Goals of care conversation held with �he is hopeful that she will make a full recovery
-Continue dysphagia therapy and PT/OT at the rehab
Hypernatremia
- IV Lasix discontinued 02/10
- Resolved status post D5W
Gouty arthritis of right third finger
- Resolved on colchicine 0.6 mg twice daily 02/12
- Will discharge her on colchicine 0.6 mg daily
Hypokalemia
- Potassium 3.3, magnesium 1.5 today
- Will give potassium chloride 40 mEq p.o. x 1 prior to discharge, start magnesium oxide 800 mg twice daily
- Instructed nursing facility to repeat BMP with magnesium levels on 02/17
Lactic acidosis.
-Resolved
Acute kidney injury
-Resolved
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
Pancytopenia
-Follows with Dr. Booth at [facility], on luspatercept outpt
-Status post 1 unit packed red blood cells on 02/08 for hemoglobin 6.8
-Hemoglobin 8.4 on 02/14, continue to monitor and transfuse for hemoglobin less than 7.0
-Instructed nursing facility to repeat CBC on 02/17
History of COPD
-Discontinued IV steroids 02/14, continue bronchodilators
Acute on chronic diastolic CHF.
-Discontinued IV Lasix secondary to hypernatremia
Most recent echocardiogram in September 2024
Estimated left ventricular ejection fraction is >75%, by visual assessment.
Normal regional wall motion.
Normal right ventricular size and function.
Mild mitral stenosis, mean gradient 3 mmHg.
Aortic sclerosis without stenosis.
Mild to moderate tricuspid regurgitation. Estimated pulmonary artery pressure
of 40-45 mmHg.
Essential hypertension
- Blood pressure trended up, resumed home valsartan 80 mg daily with hold parameters 02/11
Chronic pain.
- Hold oxycodone
Thrombocytopenia
Diffuse ecchymosis
-Continue subcu heparin for DVT prophylaxis as she is high risk
DVT prophylaxis�subcu heparin
Full Code
Updated patient's lan analyst PCP 02/11
Updated 02/10, 02/11, 02/12, 02/13, 02/14, 02/15
Total time spent to see the patient on the floor, examine the patient, review data and lab results, discuss treatment plan with patient, nursing staff around 51 minutes.
Physical Exam
General: Appears more energetic, no acute distress
HEENT: Normocephalic, Atraumatic, EOMI, MMM
Respiratory: R basilar crackles
Cardiac: Normal S1/S2, Regular Rate and Rhythm
GI: Soft, Nontender, Nondistended, Normal Bowel Sounds
Extremities: No Clubbing, Cyanosis
Neuro: No focal deficits noted
Psych: Calm, Cooperative
Derm: Ecchymosis on hands and arms
Anticipated Discharge: Today
Subjective/Interval History
-
Date of Service: February 15, 2025
Patient denies shortness of breath. She denies right third finger pain. No nausea, no vomiting. No fever.
Objective Data
-
Labs:
Laboratory Results
02/15/25
07:56
WBC Pending
Hgb Pending
Hct Pending
Plt Count Pending
Sodium Pending
Potassium Pending
Chloride Pending
Carbon Dioxide Pending
BUN Pending
Creatinine Pending
Glucose Pending
Calcium Pending
Vital Signs:
Vital Signs
Temp Pulse Resp BP Pulse Ox
98.2 F 97 19 166/89 95
02/15/25 07:56 02/15/25 08:15 02/15/25 07:56 02/15/25 08:15 02/15/25 07:56
I&O
02/14/25 02/15/25 02/16/25
06:59 06:59 06:59
Intake Total 2110 930 / 930
Balance 2110 930 / 930
[2025-02-15 09:55] LABS: Blood Urea Nitrogen 20 mg/dl (7-17); Calcium 8.4 mg/dl (8.4-10.2); Carbon Dioxide 21 mmol/L (22-30); Chloride 114 mmol/L (98-107); Estimated Creatinine Clearance 53 ml/min; Glucose 82 mg/dl (70-99); Magnesium 1.5 mg/dl (1.6-2.3); Potassium 3.3 mmol/L (3.5-5.1); Sodium 141 mmol/L (135-145); Uric Acid 6.9 mg/dl (2.5-6.2); eGFR > 60.00
[2025-02-15] MEDS: KCL ELIXIR 40 MEQ PO ×2 (11:04→16:31)
[2025-02-15] MEDS: MAGNESIUM OXIDE 800 MG PO (11:27)
--- NOTE | 2025-02-15 11:57 | W.DCSUMMARY ---
Discharge Summary
Discharge Data
Date of Admission: 02/05/25
Date of Discharge: 02/15/25
-
Pending Results: No
Hospital Course
Discharge diagnosis:
Acute hypoxic respiratory failure
Sepsis with septic shock
Aspiration pneumonia
Dysphagia
Weakness/severe deconditioning
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
Hypernatremia
Hypokalemia
Lactic acidosis
Acute kidney injury
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
Pancytopenia
History of chronic obstructive pulmonary disease
Acute on chronic heart failure with a preserved ejection fraction
Essential hypertension
Chronic pain
Thrombocytopenia
Diffuse ecchymosis
Consults: Pulmonology
Hospital course:
84-year-old female with a past medical history of MDS, CHF, hypertension, and COPD was admitted for acute hypoxic respiratory failure secondary to sepsis from aspiration pneumonia. Patient was seen conjunction with pulmonology. She briefly
required Levophed, but was able to be weaned off. She was treated with IV antibiotics, and IV steroids.
Patient has severe dysphagia. She was NPO. She was seen in conjunction with speech pathology. FEES study shows penetration. She was eventually cleared for a pur�ed diet with mildly thickened liquids. She tolerated her diet.
Patient was also found to have acute heart failure with a preserved ejection fraction. She was diuresed with IV Lasix. She then became hypernatremic. Her IV Lasix was discontinued. She received D5W, and her hypernatremia resolved.
Patient had gouty arthritis of her right third finger. She was treated with colchicine 0.6 mg twice a day. Her right finger pain resolved. She will be discharged on colchicine 0.6 mg daily.
Patient has anemia from her MDS. She was transfused 1 unit of packed red blood cells. Her hemoglobin improved, and was 8.4 the day prior to discharge.
Patient had hypokalemia and hypomagnesemia on the day of discharge. She received oral replacement. She will be discharged on magnesium oxide 800 mg twice a day.
After a prolonged hospital course, patient was able to be weaned to room air. She received a full course of IV antibiotics, and a full course of IV steroids. Her medical conditions have been optimized. She is discharged to short-term rehab.
Nursing rehab facility has been instructed to get a repeat CBC, BMP, and mag level on 02/17. She needs to follow-up with her primary care physician in less than 1 week.
Disposition: Short-term rehab
Discharge planning: Required 51 minutes
Discharge Plan
-
Patient Disposition: Long-Term/SNF
Discharge Diagnosis/Procedures: Sepsis, respiratory failure, aspiration pneumonia, dysphagia, chronic anemia from MDS, hypokalemia, gout of R 3rd finger, hypomagnesemia, hypernatremia, CHF, thrombocytopenia, weakness with severe deconditioning,
acute kidney injury
Condition: Fair
Diet: 2 Gram Sodium
Additional Diets: Pur�ed diet, mildly thickened liquids, encourage free water intake
Activity: As tolerated
Blood Work: CBC no diff, BMP, Mg level on 02/17/25
Other Services: PT, OT and ST
Activity Restrictions/Additional Instructions:
Please continue dysphagia therapy at the rehab.
Follow-up with your primary care provider in 1 week.
Wound Care Instructions
arms: clean with saline, Vaseline gauze and silicone foam change q 2-3 days and prn drainage.
chest: clean with saline, small silicone foam change q 2-3 days and prn drainage.
L lower leg: silicone foam change q 3 days and prn soilage
R third finger: clean with saline, Vaseline gauze, 2x2 and silicone tape. change dressings q 2-3 days and prn drainage.
Referrals:
Keesha Bates DO [Family Provider, General] - in one week
Aba Bruce MD [Active, Pulmonary Medicine] - in two to four weeks
Prescriptions:
New
miconazole nitrate [Miconazorb AF] 2 % Powder
1 applic topical BID Qty: 0 0RF
magnesium oxide 400 mg (241.3 mg magnesium) Tablet
800 mg PO BID Qty: 0 0RF
colchicine 0.6 mg Tablet
0.6 mg PO DAILY Qty: 0 0RF
melatonin 5 mg Tablet
5 mg PO DAILY@2000 Qty: 0 0RF
Continued
albuterol sulfate 1 PUFF HFA aerosol inhaler
1 puff inhalation R Q6HPRN PRN (Reason: shortness of breath)
cholecalciferol (vitamin D3) 2,000 UNITS tablet
2,000 units PO DAILY
pantoprazole 40 MG tablet,delayed release (DR/EC)
40 mg PO DAILY Qty: 30 0RF
aspirin 81 MG tablet,delayed release (DR/EC)
81 mg PO DAILY Qty: 0 0RF
citalopram [Celexa] 20 mg Tablet
20 mg PO DAILY
vitamin B complex Tablet
1 tab PO DAILY
cholestyramine (with sugar) 4 gram powder in packet
1 ea PO DAILY@1300
fluticasone furoate-vilanterol [Breo Ellipta] 100-25 mcg/dose Blister With Device
2 inh INHALATION R DAILY
lidocaine 4 % Adhesive Patch,Medicated
1 patch topical DAILY Qty: 30 0RF
Rx Instructions:
both hips
magnesium hydroxide [Milk of Magnesia] 400 mg/5 mL Suspension
2,400 mg PO [id number] PRN (Reason: if no bm by 3rd give on day 4)
bisacodyl [Dulcolax (bisacodyl)] 10 mg Suppository
[address] DAILYPRN PRN (Reason: if no bm aftr mom give on day 5)
Fleet Enema 19-7 gram/118 mL Enema
[address] DAILYPRN PRN (Reason: if no bm aftr dulcolax give on day 6)
capsaicin-menthol 0.05-2 % Cream
1 applic TOPICAL TID
valsartan 80 mg Tablet
80 mg PO DAILY 30 Days Qty: 30 0RF
gabapentin 100 mg Capsule
100 mg PO TID 30 Days Qty: 90 0RF
ipratropium-albuterol 0.5 mg-3 mg(2.5 mg base)/3 mL Solution For Nebulization
3 ml INHALATION BID
loperamide 2 mg Capsule
2 mg PO Q6H PRN (Reason: loose stools)
luspatercept-aamt
Q3W
Rx Instructions:
PER , PT RECIEVES SUBQ INJECTION EVERY 3 WEEKS AT [facility] FOR [facility]. LAST INJECTION ~6 WEEKS AGO DUE TO REHAB/HOSPITAL ADMISSIONS.
oxycodone 5 mg tablet
5 mg PO Q4HPRN PRN (Reason: severe pain) Qty: 10 0RF
Changed
acetaminophen [Tylenol Extra Strength] 500 mg Tablet
1,000 mg PO TID PRN (Reason: fever or pain) Qty: 90 0RF
Discontinued
cyclobenzaprine 5 mg Tablet
5 mg PO BID PRN (Reason: Muscle Spasms)
oxycodone [OxyContin] 10 mg Tablet,Oral Only,Ext.Rel.12 Hr
10 mg PO BID
amoxicillin 500 mg Capsule
500 mg PO TID
Rx Instructions:
02/05/25: pna x 5 days through 02/09/25
furosemide 20 mg Tablet
20 mg PO DAILY
celecoxib [Celebrex] 100 mg Capsule
100 mg PO BID
Discharge Orders:
Discharge Patient (As Directed); Ordered 02/15/25
Ordered By: Santo Shabazz
Discharge Date and Time
Discharge Date/Time: 02/15/25 17:17
Print Language: IRISH
[2025-02-15 12:09] LABS: Glucose - Point of Care 128 mg/dl (70-99)
[2025-02-15] MEDS: QUESTRAN 4 GRAM PO (12:58)
--- NOTE | 2025-02-15 13:03 | CM ---
Patient seen at bedside
Patient discharged
spoke with [facility] liaison and nursing supervisory geographer FROM [facility] - can accept patient today
TT hospitalist for COVID test order
IMM Explained to , verbalize understanding
PLAN: [facility] today
Report #: [phone]
Fax #: [phone]
transportation forms on chart, 5pm pick-up (notified Adia/Pat at facility as well as )
[2025-02-15 13:56] LABS: COVID-19 Antigen Negative (Negative)
[2025-02-15] MEDS: ROBITUSSIN PO (14:37)
[2025-02-15 16:03] LABS: Glucose - Point of Care 121 mg/dl (70-99)
[2025-02-15 16:13] VITALS: BP 158/60
== END 2025-02-15 17:17 | DRG 871 ==
LOC: 3 WEST ACU 12:31
PROVIDERS: Nurse Practitioner Family; ADMITTING PHYSICIAN General Practice; ATTENDING PHYSICIAN Family Medicine; CONSULT PHYSICIAN Internal Medicine Critical Care Medicine; EMERGENCY PHYSICIAN Emergency Medicine; FAMILY PHYSICIAN Family Medicine
PROC: 30233N1 Transfusion of Nonautologous Red Blood Cells into Peripheral Vein, Percutaneous Approach (ICD-10-PCS; 2025-02-06)
PROC: 5A09357 Assistance with Respiratory Ventilation, Less than 24 Consecutive Hours, Continuous Positive Airway Pressure (ICD-10-PCS; 2025-02-07)
DX: A41.9 Sepsis, unspecified organism (principal); I50.33 Acute on chronic diastolic (congestive) heart failure; J69.0 Pneumonitis due to inhalation of food and vomit; J96.01 Acute respiratory failure with hypoxia; R65.21 Severe sepsis with septic shock; J18.9 Pneumonia, unspecified organism; J44.0 Chronic obstructive pulmonary disease with (acute) lower respiratory infection; E87.20 Acidosis, unspecified; N17.9 Acute kidney failure, unspecified; E87.0 Hyperosmolality and hypernatremia; N39.0 Urinary tract infection, site not specified; D61.818 Other pancytopenia; D63.0 Anemia in neoplastic disease; D46.9 Myelodysplastic syndrome, unspecified; I11.0 Hypertensive heart disease with heart failure; I25.10 Atherosclerotic heart disease of native coronary artery without angina pectoris; E78.5 Hyperlipidemia, unspecified; G47.33 Obstructive sleep apnea (adult) (pediatric); F32.A Depression, unspecified; N20.0 Calculus of kidney; M48.00 Spinal stenosis, site unspecified; I08.2 Rheumatic disorders of both aortic and tricuspid valves; E87.6 Hypokalemia; E83.42 Hypomagnesemia; G89.29 Other chronic pain; R13.10 Dysphagia, unspecified; M10.9 Gout, unspecified; D69.6 Thrombocytopenia, unspecified; Z11.52 Encounter for screening for COVID-19; Z79.899 Other long term (current) drug therapy; Z87.11 Personal history of peptic ulcer disease; Z79.1 Long term (current) use of non-steroidal anti-inflammatories (NSAID); Z79.51 Long term (current) use of inhaled steroids; Z79.82 Long term (current) use of aspirin
CPT/HCPCS: 36415; 36600; 71045; 73120; 74018; 80048; 80053; 80202; 81003; 81015; 82805; 82962; 83036; 83605; 83735; 83880; 84100; 84145; 84550; 85014; 85018; 85025; 85027; 85379; 86850; 86870; 86880; 86900; 86901; 86920; 86922; 87040; 87077; 87086; 87186; 87205; 87324; 87449; 87502; 87641; 87811; 87899; 92526; 92610; 92612; 93005; 93970; 94640; 94660; 96365; 96366; 96367; 97163; 97167; 97530; 97535; 99291; P9016